=== PATIENT | female | born 1940 | race Caucasian/White ===

== ENCOUNTER → 2016-12-29 | Outpatient (CLI) | payer MEDICARE, BC ==
--- NOTE | 2016-12-30 12:33 | NM ---
EXAMINATION TYPE: NM thyroid image w uptake DATE OF EXAM: 12/30/2016 11:43 AM COMPARISON: NONE HISTORY: Abnormal labs TECHNIQUE: After the intravenous administration of 10.13 mCi Tc 99m Sodium Pertechnetate, thyroid nydia ging is [id number] minutes post injection. Thyroid iodine uptake is calculated after the oral admini stration of 17 uCi I-131 capsule. FINDINGS: There is suggestion of a cold defect involving the inferior pole the right lobe of the thyr oid.. The 4 hour iodine uptake is calculated at 20% (normal range 8-14%). The 24-hour iodine uptake is calculated at 41.4% (normal range 15-35%). IMPRESSION: 1. Correlate for hyperthyroidism 2. Correlate with ultrasound to assess for cold nodule lower pole right lobe thyroid
== END | disposition home or self-care (01) ==
LOC: RADNMMAIN 10:49
PROVIDERS: ATTEND Family Medicine
DX: E05.90 Thyrotoxicosis, unspecified without thyrotoxic crisis or storm (principal)
CPT/HCPCS: 78014; A9528; A9512

== ENCOUNTER → 2016-12-31 | Outpatient (CLI) | payer MEDICARE, BC ==
--- NOTE | 2016-12-31 14:43 | MR ---
EXAMINATION TYPE: MR lumbar spine wo con DATE OF EXAM: 12/31/2016 2:25 PM COMPARISON: NONE HISTORY: low back pain, fell TECHNIQUE: Multiplanar, multisequence images of the lumbar spine were acquired. Moderate scoliotic curvature is noted convex to the right. T12-L1: Severe nonacute compression fracture involving T12 with loss of height estimated at greater t xie 90%. There is exaggerated kyphosis at this level. 2 mm retrolisthesis without cord compression. D isc space demonstrates mild degenerative change. L1-L2: Acute moderate compression fracture involving L2 with loss of height estimated at 50%. No sign ificant bony retropulsion identified. Posterior elements are intact. Moderate disc desiccation withou t disc bulge herniation or central stenosis. L2-L3: Moderate disc desiccation identified. Mild posterior disc bulge without herniation or protrusi on. No evidence for central stenosis. Facet joint arthropathy with left foraminal encroachment. L3-L4: Mild/moderate disc desiccation. Mild circumferential disc bulge. No evidence for herniation pr otrusion or central stenosis. Mild facet joint arthropathy. No evidence for foraminal encroachment. L4-L5: Mild/moderate disc desiccation. Mild circumferential disc bulge. No evidence for herniation pr otrusion or central stenosis. Mild facet joint arthropathy. No evidence for foraminal encroachment. L5-S1: Mild/moderate disc desiccation. Mild circumferential disc bulge. No evidence for herniation pr otrusion or central stenosis. Mild facet joint arthropathy. No evidence for foraminal encroachment. No paraspinal masses are identified. Conus medullaris has a normal appearance. IMPRESSION: 1. Moderate acute compression fracture of L2 as discussed above. 2. Severe nonacute compression fracture of T12. 3. Multilevel degenerative disc disease with mild disc bulging as discussed.
== END | disposition home or self-care (01) ==
LOC: RADMRIMAIN 13:41
PROVIDERS: ATTEND Family Medicine
DX: M51.27 Other intervertebral disc displacement, lumbosacral region (principal); M51.36 Other intervertebral disc degeneration, lumbar region; S32.029A Unspecified fracture of second lumbar vertebra, initial encounter for closed fracture; G89.29 Other chronic pain
CPT/HCPCS: 72148

== ENCOUNTER 2017-02-03 19:53 | Emergency (ER) | payer MEDICARE, BC ==
[2017-02-03 20:08] VITALS: BP 182/86; PULSE 105; RESP 16; TEMP 97.8
--- NOTE | 2017-02-03 20:38 | ED ---
General Adult HPI - General Chief complaint: Back Pain/Injury Stated complaint: BACK PAIN Time Seen by Provider: 02/03/17 20:26 Source: EMS, RN notes reviewed Mode of arrival: EMS Limitations: physical limitation - History of Present Illness Initial comments: Patient 76-year-old female who presents emergency room today by EMS with chief complaint of increased lower back pain. Patient does admit to a lumbar fracture. Has been seen by orthopedics and does have a follow-up appointment tomorrow. Patient states doing dishes today. Denies any injury or trauma or fall recently to her back. States this happened approximately 3-4 weeks ago. Denies any bowel or bladder incontinence retention. Denies any saddle anesthesia. Patient admits that she was given Tylenol 3. She states that codeine makes her feel nauseated. She does not like taking this medication. She took one this morning. She took regular Tylenol in the afternoon. He was having increased pain this afternoon they called EMS. EMS gave her fentanyl. Patient states feeling much better at this time. Denies any complaints currently. Patient denies any recent fever, chills, shortness of breath, chest pain, abdominal pain, nausea or vomiting, numbness or tingling, dysuria or hematuria, constipation or diarrhea, headaches or visual changes, or any other complaints. - Related Data Home Medications Medication Instructions Recorded Confirmed Acetaminophen Tab [Tylenol Tab] 325 mg PO Q6H PRN 02/03/17 02/03/17 Acetaminophen-Codeine 300-30mg 1 tab PO Q4H PRN 02/03/17 02/03/17 [Tylenol #3] Cholecalciferol (Vitamin D3) 10,000 unit PO DAILY 02/03/17 02/03/17 [Vitamin D3] Lutein 20 mg PO DAILY 02/03/17 02/03/17 Naproxen Sodium [Aleve] 220 mg PO BID PRN 02/03/17 02/03/17 Simvastatin [Zocor] 40 mg PO HS 02/03/17 02/03/17 Previous Rx's Medication Instructions Recorded Hydrocodone/Acetaminophen [[place] 1 each PO Q6HR PRN #20 tab 02/03/17 5-325] Allergies Allergy/AdvReac Type Severity Reaction Status Date / Time amoxicillin [From Augmentin] Allergy Unknown Verified 02/03/17 20:21 cefaclor [From Ceclor] Allergy Unknown Verified 02/03/17 20:21 clarithromycin [From Biaxin] Allergy Unknown Verified 02/03/17 20:21 clavulanic acid Allergy Unknown Verified 02/03/17 20:21 [From Augmentin] codeine AdvReac Nausea & Verified 02/03/17 20:21 Vomiting & Diarrhea Review of Systems ROS Statement: Those systems with pertinent positive or pertinent negative responses have been documented in the HPI. ROS Other: All systems not noted in ROS Statement are negative. Past Medical History Past Medical History: Cancer, COPD History of Any Multi-Drug Resistant Organisms: None Reported Past Surgical History: Breast Surgery, Tonsillectomy, Tubal Ligation Additional Past Surgical History / Comment(s): LEFT MASTECOMY BREAST CA. LEFT FOOT FX .LEFT RIBS FX. LEFT TOES FX Past Psychological History: No Psychological Hx Reported Smoking Status: Current every day smoker Past Alcohol Use History: None Reported Past Drug Use History: None Reported General Exam - General Exam Comments Initial Comments: General: The patient is awake and alert, in no distress, and does not appear acutely ill. Eye: Pupils are equal, round and reactive to light, extra-ocular movements are intact. No nystagmus. There is normal conjunctiva bilaterally. No signs of icterus. Ears, nose, mouth and throat: There are moist mucous membranes and no oral lesions. Neck: The neck is supple, there is no tenderness or JVD. Cardiovascular: There is a regular rate and rhythm. No murmur, rub or gallop is appreciated. Respiratory: Lungs are clear to auscultation, respirations are non-labored, breath sounds are equal. No wheezes, stridor, rales, or rhonchi. Gastrointestinal: Soft, non-distended, non-tender abdomen without masses or organomegaly noted. There is no rebound or guarding present. No CVA tenderness. Bowel sounds are unremarkable. Musculoskeletal: Normal ROM, no tenderness. Strength 5/5. Sensation intact. Pulses equal bilaterally 2+. Neurological: A&O x 3. CN II-XII intact, There are no obvious motor or sensory deficits. Coordination appears grossly intact. Speech is normal. Skin: Skin is warm and dry and no rashes or lesions are noted. Psychiatric: Cooperative, appropriate mood & affect, normal judgment. Limitations: physical limitation Course Vital Signs 02/03/17 20:01 Temperature 97.8 F Pulse Rate 105 H Respiratory 16 Rate Blood Pressure 182/86 O2 Sat by Pulse 94 L Oximetry Medical Decision Making - Medical Decision Making Patient admits this is same back pain that she's been experiencing over the last 3 weeks. Denies any new symptoms. States feeling much better after fentanyl given by EMS. Patient is not like her Tylenol with codeine. Only took it in the morning and just took regular Tylenol only afternoon. Patient given a prescription for [place]. 1 tab here in The emergency room to go home with. Advised to follow with her doctor's appointment tomorrow morning. Advised return if any symptoms increase or worsen. Patient family members at bedside state understanding and are in agreement. Disposition Clinical Impression: Lumbar vertebral fracture Disposition: HOME SELF-CARE Condition: Good Instructions: Vertebral Compression Fracture (ED) Additional Instructions: Please use medication as discussed. Please follow-up with orthopedic doctor tomorrow with scheduled appointment. Please return to emergency room if the symptoms increase or worsen or for any other concerns. Prescriptions: Hydrocodone/Acetaminophen [[place] 5-325] 1 each PO Q6HR PRN #20 tab PRN Reason: Pain Time of Disposition: 20:38
[2017-02-03] MEDS ORDERED: HYDROcodone/APAP 5-325MG 1 EACH TAB PO STA (20:56)
== END 2017-02-03 21:05 | disposition home or self-care (01) ==
LOC: EC 19:53
DX: S32.009D Unspecified fracture of unspecified lumbar vertebra, subsequent encounter for fracture with routine healing (principal); F17.200 Nicotine dependence, unspecified, uncomplicated; Z85.3 Personal history of malignant neoplasm of breast; Z79.899 Other long term (current) drug therapy; Z88.5 Allergy status to narcotic agent; Z88.0 Allergy status to penicillin; Z88.1 Allergy status to other antibiotic agents; W00.0XXD Fall on same level due to ice and snow, subsequent encounter
CPT/HCPCS: 99283

== ENCOUNTER 2017-11-14 08:52 | Day surgery (SDC) | payer MEDICARE, BC ==
[2017-11-14 09:17] VITALS: TEMP 98
[2017-11-14] MEDS ORDERED: ALPRAZolam 0.25 MG TAB PO STA (09:21)
[2017-11-14] MEDS ORDERED: HYDROmorphone 1 MG/ML 1 ML SYRINGE IVP PRN (09:29)
[2017-11-14 09:39] LABS: Mean Platelet Volume 8.1
[2017-11-14 09:40] LABS: Prothrombin Time 10.2 sec (9.0-12.0)
--- NOTE | 2017-11-14 10:56 | CT ---
EXAMINATION TYPE: CT FNA and core biopsy lung RT DATE OF EXAM: 11/14/2017 COMPARISON: 11/01/2017 HISTORY: Right upper lobe lung mass CT DLP: 897 mGycm The procedure is discussed with the patient, the risks, complications, benefits and alternatives, wer e discussed and any questions were answered. Informed consent was obtained. The patient is placed p birgit on the CT table, prepped and draped in the usual sterile fashion. Utilizing a 22-gauge Chiba needle access into the right lobe mass was achieved with 2 passes performe d. Additionally 2 18-gauge core samples were obtained. Pathology pending. All elements of maximal b arrier and sterile technique were utilized. The patient remained stable throughout the procedure wit h no immediate postprocedural complication. IMPRESSION: 1. Successful CT guided fine needle aspiration and core biopsy of a right upper lobe lung mass.
--- NOTE | 2017-11-14 11:02 | XR ---
EXAMINATION TYPE: XR chest 1V portable DATE OF EXAM: 11/14/2017 COMPARISON: 11/01/2017 HISTORY: Right lung mass TECHNIQUE: Single frontal view of the chest is obtained. FINDINGS: Destructive right lung mass with destruction of multiple ribs noted. No sizable pneumothor ax post biopsy. Left lung clear. Curvature the spine and atherosclerotic change aorta. Calcifications the soft tissue the neck likely related carotid arteries. IMPRESSION: 1. Destructive right upper lobe lung mass. 2. No evidence of pneumothorax.
[2017-11-14 11:15] VITALS: RESP 16
[2017-11-14 13:20] VITALS: BP 168/72; PULSE 82
== END 2017-11-14 13:21 | disposition home or self-care (01) ==
LOC: RADPROMAIN 08:52
PROVIDERS: ATTEND Internal Medicine Hematology & Oncology
DX: C34.11 Malignant neoplasm of upper lobe, right bronchus or lung (principal)
CPT/HCPCS: 88305; 88173; 85049; 85610; 88342; 88341; 71010; 96374; 32405; 77012; J1170

== ENCOUNTER → 2017-11-25 | Outpatient (CLI) | payer MEDICARE, BC ==
--- NOTE | 2017-11-25 20:38 | MR ---
EXAMINATION TYPE: MR brain wo/w con DATE OF EXAM: 11/25/2017 COMPARISON: NONE HISTORY: Dizziness, lung ca TECHNIQUE: Multiplanar, multisequence images of the brain and brainstem is performed without and with IV contras t, utilizing 4 mL intravenous Gadavist . FINDINGS: Diffusion weighted images demonstrate no evidence of a recent infarct or other diffusion ab normality. There is no extra-axial fluid collection. Scattered punctate foci of T2/IR hyperintensity are scattered throughout the subcortical and periventricular white matter. These signal abnormaliti es are nonenhancing. The ventricular system and cisternal spaces are normal in size and appearance. The brain volume is age appropriate. Bone marrow signal is within normal limits. Incidental note is m heaven of a 5 mm pineal gland cyst. This is a benign finding. Major intracranial flow voids are maintain ed. Midline structures demonstrate normal morphology. The craniocervical junction appears within normal limits. Post contrast images demonstrate no abnormal enhancement. The dural venous sinuses appear pa tent. The visualized sinuses are clear other than scant mucosal thickening within the ethmoid sinuses . Mild leftward nasal septal deviation is incidentally noted. The globes are intact. IMPRESSION: 1. No evidence of abnormal intracranial enhancement or intracranial mass. No evidence of intracranial metastasis. Bone marrow signal is within normal limits. No findings to suggest osseous metastasis. 2. Mild burden nonspecific white matter change (nonenhancing), likely on the basis of microangiopathy .
== END | disposition home or self-care (01) ==
LOC: RADMRIMAIN 18:45
PROVIDERS: ATTEND Internal Medicine Hematology & Oncology
DX: C34.80 Malignant neoplasm of overlapping sites of unspecified bronchus and lung (principal)
CPT/HCPCS: 70553; A9581

== ENCOUNTER → 2017-11-26 | Outpatient (CLI) | payer MEDICARE, BC ==
--- NOTE | 2017-11-26 16:17 | PE ---
Nuclear medicine PET/CT HISTORY: Lung cancer, initial Patient received 13.6 mCi F-18 FDG intravenously in delayed scanning performed from the skull base to the mid thighs. Localization and attenuation correction CT scan was performed. Exam is correlated to prior chest CT dated 11/01/2017 Neck and chest: The chest wall mass which extends from the lung into the soft tissues of the right la teral chest is again noted and measures approximately 8.6 in greatest AP dimension by 5.1 in transver se dimension by approximately 7.4 cm in cephalad to caudal dimension in the right upper lobe. Multipl e ribs show destruction, involvement by tumor. There is no evident axillary, mediastinal, or hilar ad enopathy. There is no pleural or pericardial effusion. Emphysematous changes are present within the l ungs. There are coronary artery calcifications. Asymmetric soft tissue noted within the breasts. Abdomen pelvis: No evident adrenal mass or liver mass. No retroperitoneal adenopathy. No evident asci sienna. Suspect some nonobstructive nephrolithiasis on the left kidney. osseous structures: There is some sclerosis involving the ninth rib posteriorly, some associated hype rmetabolic uptake is suspected. Paraspinal musculature on the right shows hypermetabolic uptake thoug ht likely to be physiologic. Compression fracture noted at multiple lower thoracic, lumbar vertebral bodies. There is scoliosis. IMPRESSION: Chest wall mass as described compatible with bronchogenic carcinoma, possible metastatic disease. Asymmetric soft tissue within the breast is indeterminate.
== END | disposition home or self-care (01) ==
LOC: RADPETMAIN 10:27
PROVIDERS: ATTEND Internal Medicine Hematology & Oncology
DX: C34.81 Malignant neoplasm of overlapping sites of right bronchus and lung (principal)
CPT/HCPCS: 78815; A9552

== ENCOUNTER 2018-01-27 12:23 | Emergency (ER) | payer MEDICARE, BC ==
[2018-01-27] MEDS ORDERED: IPRATROPIUM-ALBUTEROL 3 ML NEB INHALATION STA (12:56)
[2018-01-27] MEDS ORDERED: SODIUM CHLORIDE 0.9% 1,000 ML IV STA ×2 (12:56→15:30)
--- NOTE | 2018-01-27 13:28 | ED ---
General Adult HPI - General Chief complaint: Shortness of Breath Stated complaint: Cold Symptoms-CA Patient Time Seen by Provider: 01/27/18 12:56 Source: patient, family, RN notes reviewed, old records reviewed Mode of arrival: wheelchair Limitations: no limitations - History of Present Illness Initial comments: This is a 77-year-old female to the ER for evaluation tonight. Patient is ER for evaluation regarding shortness of breath. No fevers no cough or congestion no travel history. Patient going through current radiation for CVA. denies chest pain no other complaints. Patient had shortness of breath sent over from her doctor's office for evaluation - Related Data Home Medications Medication Instructions Recorded Confirmed Lutein 20 mg PO DAILY 02/03/17 01/27/18 Simvastatin [Zocor] 40 mg PO HS 02/03/17 01/27/18 Albuterol Inhaler [Ventolin Hfa 2 puff INHALATION RT-Q6H PRN 11/01/17 01/27/18 Inhaler] Calcium Carbonate [Calcium] 600 mg PO DAILY 11/01/17 01/27/18 Cholecalciferol [Vitamin D3] 1,000 unit PO DAILY 11/01/17 01/27/18 Loratadine [Claritin] 10 mg PO DAILY 11/01/17 01/27/18 Hydrocodone/Acetaminophen [[place] 1 tab PO Q6HR PRN 01/27/18 01/27/18 5-325] Allergies Allergy/AdvReac Type Severity Reaction Status Date / Time amoxicillin [From Augmentin] Allergy Unknown Verified 01/27/18 13:33 cefaclor [From Ceclor] Allergy Unknown Verified 01/27/18 13:33 clarithromycin [From Biaxin] Allergy Unknown Verified 01/27/18 13:33 clavulanic acid Allergy Unknown Verified 01/27/18 13:33 [From Augmentin] codeine AdvReac Nausea & Verified 01/27/18 13:33 Vomiting & Diarrhea Review of Systems ROS Statement: Those systems with pertinent positive or pertinent negative responses have been documented in the HPI. ROS Other: All systems not noted in ROS Statement are negative. Past Medical History Past Medical History: Cancer, COPD, Hyperlipidemia, Osteoarthritis (OA), Respiratory Disorder Additional Past Medical History / Comment(s): recent fall - fracture ribs rt, emphysema, Lung cancer History of Any Multi-Drug Resistant Organisms: None Reported Past Surgical History: Breast Surgery, Tonsillectomy, Tubal Ligation Additional Past Surgical History / Comment(s): LEFT MASTECOMY benign . LEFT FOOT FX .LEFT RIBS FX. LEFT TOES FX Past Anesthesia/Blood Transfusion Reactions: No Reported Reaction Past Psychological History: No Psychological Hx Reported Smoking Status: Current every day smoker Past Alcohol Use History: None Reported Past Drug Use History: None Reported - Past Family History Mother Family Medical History: Cancer Additional Family Medical History / Comment(s): breast General Exam Limitations: no limitations General appearance: alert, in no apparent distress, anxious, cachectic Head exam: Present: atraumatic, normocephalic, normal inspection Eye exam: Present: normal appearance, PERRL, EOMI. Absent: scleral icterus, conjunctival injection, periorbital swelling ENT exam: Present: normal exam, mucous membranes moist Neck exam: Present: normal inspection. Absent: tenderness, meningismus, lymphadenopathy Respiratory exam: Present: normal lung sounds bilaterally. Absent: respiratory distress, wheezes, rales, rhonchi, stridor Cardiovascular Exam: Present: normal rhythm, tachycardia, normal heart sounds. Absent: systolic murmur, diastolic murmur, rubs, gallop, clicks GI/Abdominal exam: Present: soft, normal bowel sounds. Absent: distended, tenderness, guarding, rebound, rigid Extremities exam: Present: normal inspection, full ROM, normal capillary refill. Absent: tenderness, pedal edema, joint swelling, calf tenderness Back exam: Present: normal inspection Neurological exam: Present: alert, oriented X3, CN II-XII intact Psychiatric exam: Present: normal affect, normal mood Skin exam: Present: warm, dry, intact, normal color. Absent: rash Course Vital Signs 01/27/18 01/27/18 01/27/18 12:48 13:15 13:30 Temperature 97.9 F Pulse Rate 114 H 113 H 112 H Respiratory 18 Rate Blood Pressure 118/59 O2 Sat by Pulse 98 Oximetry 01/27/18 01/27/18 01/27/18 14:00 15:34 16:18 Temperature 97.1 F L Pulse Rate 114 H 110 H 104 H Respiratory 19 16 Rate Blood Pressure 91/52 115/57 118/60 O2 Sat by Pulse 96 97 96 Oximetry - Reevaluation(s) Reevaluation #1: 01/27/18 16:33 Patient is improvement breathing treatment Reevaluation #2: 01/27/18 16:34 Patient denies any chest pain EKG Findings - EKG Comments: EKG Findings:: EKG shows sinus tachycardia rate 19, [place] 122, QRS 70, QTc 447 Medical Decision Making - Medical Decision Making 77 female the ER for evaluation of cough and congestion tachycardia dehydration , patient given hydration and breathing treatment here in the ER feels better. Labwork is normal CTA chest is negative - Lab Data Result diagrams: 01/27/18 13:25 01/27/18 13:25 Lab Results 01/27/18 01/27/18 01/27/18 Range/Units 13:25 13:25 13:25 WBC 1.6 L* (3.8-10.6) k/uL RBC 2.84 L (3.80-5.40) m/uL Hgb 8.3 L (11.4-16.0) gm/dL Hct 26.4 L (34.0-46.0) % MCV 92.8 (80.0-100.0) fL MCH 29.3 (25.0-35.0) pg MCHC 31.5 (31.0-37.0) g/dL RDW 16.7 H (11.5-15.5) % Plt Count 120 L (150-450) k/uL Neutrophils % 78 % Lymphocytes % 16 % Monocytes % 3 % Eosinophils % 1 % Basophils % 1 % Neutrophils # 1.3 (1.3-7.7) k/uL Lymphocytes # 0.3 L (1.0-4.8) k/uL Monocytes # 0.1 (0-1.0) k/uL Eosinophils # 0.0 (0-0.7) k/uL Basophils # 0.0 (0-0.2) k/uL Anisocytosis Slight PT (9.0-12.0) sec INR (<1.2) APTT (22.0-30.0) sec D-Dimer (<0.60) mg/L FEU Sodium 139 (137-145) mmol/L Potassium 4.5 (3.5-5.1) mmol/L Chloride 105 (98-107) mmol/L Carbon Dioxide 26 (22-30) mmol/L Anion Gap 8 mmol/L BUN 14 (7-17) mg/dL Creatinine 0.43 L (0.52-1.04) mg/dL Est GFR (MDRD) Af Amer >60 (>60 ml/min/1.73 sqM) Est GFR (MDRD) Non-Af >60 (>60 ml/min/1.73 sqM) Glucose 107 H (74-99) mg/dL Calcium 9.2 (8.4-10.2) mg/dL Magnesium 1.8 (1.6-2.3) mg/dL Total Bilirubin 0.5 (0.2-1.3) mg/dL AST 25 (14-36) U/L ALT 30 (9-52) U/L Alkaline Phosphatase 75 (38-126) U/L Total Creatine Kinase 28 L (30-135) U/L CK-MB (CK-2) <0.2 (0.0-2.4) ng/mL CK-MB (CK-2) Rel Index Troponin I 0.019 (0.000-0.034) ng/mL NT-Pro-B Natriuret Pep pg/mL Total Protein 6.3 (6.3-8.2) g/dL Albumin 3.5 (3.5-5.0) g/dL Influenza Type A RNA (Not Detectd) Influenza Type B (PCR) (Not Detectd) 01/27/18 01/27/18 01/27/18 Range/Units 13:25 13:25 13:25 WBC (3.8-10.6) k/uL RBC (3.80-5.40) m/uL Hgb (11.4-16.0) gm/dL Hct (34.0-46.0) % MCV (80.0-100.0) fL MCH (25.0-35.0) pg MCHC (31.0-37.0) g/dL RDW (11.5-15.5) % Plt Count (150-450) k/uL Neutrophils % % Lymphocytes % % Monocytes % % Eosinophils % % Basophils % % Neutrophils # (1.3-7.7) k/uL Lymphocytes # (1.0-4.8) k/uL Monocytes # (0-1.0) k/uL Eosinophils # (0-0.7) k/uL Basophils # (0-0.2) k/uL Anisocytosis PT 9.5 (9.0-12.0) sec INR 1.0 (<1.2) APTT 22.5 (22.0-30.0) sec D-Dimer 3.27 H (<0.60) mg/L FEU Sodium (137-145) mmol/L Potassium (3.5-5.1) mmol/L Chloride (98-107) mmol/L Carbon Dioxide (22-30) mmol/L Anion Gap mmol/L BUN (7-17) mg/dL Creatinine (0.52-1.04) mg/dL Est GFR (MDRD) Af Amer (>60 ml/min/1.73 sqM) Est GFR (MDRD) Non-Af (>60 ml/min/1.73 sqM) Glucose (74-99) mg/dL Calcium (8.4-10.2) mg/dL Magnesium (1.6-2.3) mg/dL Total Bilirubin (0.2-1.3) mg/dL AST (14-36) U/L ALT (9-52) U/L Alkaline Phosphatase (38-126) U/L Total Creatine Kinase (30-135) U/L CK-MB (CK-2) (0.0-2.4) ng/mL CK-MB (CK-2) Rel Index Troponin I (0.000-0.034) ng/mL NT-Pro-B Natriuret Pep 396 pg/mL Total Protein (6.3-8.2) g/dL Albumin (3.5-5.0) g/dL Influenza Type A RNA (Not Detectd) Influenza Type B (PCR) (Not Detectd) 01/27/18 Range/Units 15:30 WBC (3.8-10.6) k/uL RBC (3.80-5.40) m/uL Hgb (11.4-16.0) gm/dL Hct (34.0-46.0) % MCV (80.0-100.0) fL MCH (25.0-35.0) pg MCHC (31.0-37.0) g/dL RDW (11.5-15.5) % Plt Count (150-450) k/uL Neutrophils % % Lymphocytes % % Monocytes % % Eosinophils % % Basophils % % Neutrophils # (1.3-7.7) k/uL Lymphocytes # (1.0-4.8) k/uL Monocytes # (0-1.0) k/uL Eosinophils # (0-0.7) k/uL Basophils # (0-0.2) k/uL Anisocytosis PT (9.0-12.0) sec INR (<1.2) APTT (22.0-30.0) sec D-Dimer (<0.60) mg/L FEU Sodium (137-145) mmol/L Potassium (3.5-5.1) mmol/L Chloride (98-107) mmol/L Carbon Dioxide (22-30) mmol/L Anion Gap mmol/L BUN (7-17) mg/dL Creatinine (0.52-1.04) mg/dL Est GFR (MDRD) Af Amer (>60 ml/min/1.73 sqM) Est GFR (MDRD) Non-Af (>60 ml/min/1.73 sqM) Glucose (74-99) mg/dL Calcium (8.4-10.2) mg/dL Magnesium (1.6-2.3) mg/dL Total Bilirubin (0.2-1.3) mg/dL AST (14-36) U/L ALT (9-52) U/L Alkaline Phosphatase (38-126) U/L Total Creatine Kinase (30-135) U/L CK-MB (CK-2) (0.0-2.4) ng/mL CK-MB (CK-2) Rel Index Troponin I (0.000-0.034) ng/mL NT-Pro-B Natriuret Pep pg/mL Total Protein (6.3-8.2) g/dL Albumin (3.5-5.0) g/dL Influenza Type A RNA Not Detected (Not Detectd) Influenza Type B (PCR) Not Detected (Not Detectd) - Radiology Data Radiology results: report reviewed (CTA chest is negative for PE), image reviewed Disposition Clinical Impression: URI (upper respiratory infection) Disposition: HOME SELF-CARE Condition: Good Instructions: Upper Respiratory Infection (ED), Viral Syndrome (ED) Referrals: Sara Carrasco MD [Primary Care Provider] - 1-2 days
[2018-01-27 13:54] LABS: Anisocytosis Slight; Basophils % (A) 1 %; Eosinophils % (A) 1 %; HCT 26.4 % (34.0-46.0); HGB 8.3 gm/dL (11.4-16.0); Lymphocytes # (A) 0.3 k/uL (1.0-4.8); Lymphocytes % (A) 16 %; MCH 29.3 pg (25.0-35.0); MCHC 31.5 g/dL (31.0-37.0); MCV 92.8 fL (80.0-100.0); Mean Platelet Volume 8.4; Monocytes # (A) 0.1 k/uL (0-1.0); Monocytes % (A) 3 %; Neutrophils # (A) 1.3 k/uL (1.3-7.7); Neutrophils % (A) 78 %; Platelet Count 120 k/uL (150-450); RBC 2.84 m/uL (3.80-5.40); RDW 16.7 % (11.5-15.5)
[2018-01-27 13:56] LABS: WBC 1.6 k/uL (3.8-10.6)
[2018-01-27 14:00] LABS: ALT 30 U/L (9-52); AST 25 U/L (14-36); Albumin 3.5 g/dL (3.5-5.0); Alkaline Phosphatase 75 U/L (38-126); Anion Gap 8 mmol/L; Blood Urea Nitrogen 14 mg/dL (7-17); Calcium 9.2 mg/dL (8.4-10.2); Carbon Dioxide 26 mmol/L (22-30); Chloride 105 mmol/L (98-107); Glucose 107 mg/dL (74-99); Potassium 4.5 mmol/L (3.5-5.1); Sodium 139 mmol/L (137-145); Total Bilirubin 0.5 mg/dL (0.2-1.3); Total Protein 6.3 g/dL (6.3-8.2)
[2018-01-27 14:12] LABS: Creatine Kinase 28 U/L (30-135)
[2018-01-27 14:15] LABS: Partial Thromboplastin Time 22.5 sec (22.0-30.0); Prothrombin Time 9.5 sec (9.0-12.0)
[2018-01-27] MEDS ORDERED: RX INFO: IV CONTRAST WAS GIVEN 1 EACH MISC MISCELLANE PRN (14:17)
[2018-01-27 14:23] LABS: Creatine Kinase MB <0.2 ng/mL (0.0-2.4); Troponin I 0.019 ng/mL (0.000-0.034)
--- NOTE | 2018-01-27 15:05 | CT ---
EXAMINATION TYPE: CT angio chest DATE OF EXAM: 01/27/2018 COMPARISON: CT chest abdomen and pelvis November 01, 2017. PET/CT November 26, 2017. HISTORY: Cough and shortness of breath. CT DLP: 104.5 mGycm. Automated Exposure Control for Dose Reduction was Utilized. CONTRAST: CTA scan of the thorax is performed with IV Contrast, patient injected with 100 mL of Omnipaque 350, pulmonary embolism protocol. MIP Images are created on CT scanner and reviewed. FINDINGS: LUNGS: Moderate underlying emphysematous change is redemonstrated. Peripheral based right upper lobe lesion shows new aeration with lobular low dense probable fluid component most prominent inferiorly and new partial right rib resection consistent with interval partial pneumonectomy changes at this le eloise. There is moderate biapical pleural/parenchymal scarring. No additional areas of new consolidatio n or groundglass opacity are seen. No pleural effusion or pneumothorax is identified bilaterally. Tra cheobronchial tree is patent. MEDIASTINUM: There is satisfactory enhancement of the pulmonary artery and its branches, there is no CT evidence for pulmonary embolism. There are no greater than 1 cm hilar or mediastinal lymph nodes. No cardiomegaly or pericardial effusion is seen. Coronary artery calcification is redemonstrated w hich is noted marker for coronary artery disease. There is moderate atherosclerotic change of aorta e xtending into branch vessels. There is ectatic course to descending aorta. OTHER: Osseous structures are demineralized. There is advanced compression type fracture deformity T1 2 level redemonstrated. Underlying scoliosis is again seen. IMPRESSION: No CT evidence for pulmonary embolism. 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 Background moderate emphysematous change without suspicious new acute pulmon geovany process.
[2018-01-27 15:37] VITALS: TEMP 97.1
[2018-01-27 16:27] VITALS: BP 118/60; PULSE 104; RESP 16
== END 2018-01-27 16:43 | disposition home or self-care (01) ==
LOC: EC 12:23
DX: J06.9 Acute upper respiratory infection, unspecified (principal); E86.0 Dehydration; R00.0 Tachycardia, unspecified; C34.90 Malignant neoplasm of unspecified part of unspecified bronchus or lung; R64 Cachexia; E78.5 Hyperlipidemia, unspecified; J43.9 Emphysema, unspecified; F17.200 Nicotine dependence, unspecified, uncomplicated; Z79.899 Other long term (current) drug therapy; Z88.0 Allergy status to penicillin; Z88.1 Allergy status to other antibiotic agents; Z88.5 Allergy status to narcotic agent; Z92.3 Personal history of irradiation; Z68.1 Body mass index [BMI] 19.9 or less, adult
CPT/HCPCS: 36415; 94640; 93005; 85379; 83880; 80053; 82550; 82553; 83735; 84484; 85025; 85610; 85730; 87502; 71275; 99285; 96360; 96361 ×2; Q9967

== ENCOUNTER → 2018-03-15 | Outpatient (CLI) | payer MEDICARE, BC ==
[2018-03-15 11:38] LABS: Blood Urea Nitrogen 14 mg/dL (7-17)
--- NOTE | 2018-03-15 13:52 | CT ---
EXAMINATION TYPE: CT ChestAbdPelvis w con DATE OF EXAM: 03/15/2018 COMPARISON: 01/27/2018 and 11/26/2017 HISTORY: 77 year-old female history of lung cancer, observe for metastases. Follow-up after chemoradi ation therapy. TECHNIQUE: Contiguous axial scanning of the chest, abdomen, and pelvis performed with IV Contrast, pa tient injected with 80 mL of Isovue 300. Delayed images through the kidneys were obtained. Coronal/sa gittal reconstructions performed. CT DLP: 829 mGycm Automated exposure control for dose reduction was used. FINDINGS: Chest: Heart is normal size without pericardial effusion. Coronary vessel calcifications are present in evan rkable for coronary artery disease. Aorta normal caliber with a mild atherosclerotic arch calcifications and conventional arch vessel bra nching anatomy. No thoracic lymphadenopathy by CT size criteria. Redemonstrated moderate centrilobular emphysema with biapical pleural-parenchymal scarring. Redemonstrated resection cavity performed right upper lobe with partial rib resections as well. The r esection cavity measures up to 5.3 cm AP by 3.5 cm wide currently versus 6.0 x 3.8 cm, previously. Th ere is similar mild irregular thickening along the resection margins especially with some heterogeneo us density thickening, probable fluid along the inferior resection cavity margins. Subtle area of 7 m m nodularity along the anterior medial resection margin appears new and should be reassessed at follo w-up. Refer to axial images 21 and 22. No consolidation or pleural effusion. ABDOMEN: Tiny subcentimeter hypodensity peripheral right hepatic dome stable and too small for accurate CT dionne racterization, probable tiny cyst. Stable mild prominence to the bile duct. Small diverticulum of the second portion of the duodenum. The portal vein appears patent. Gallbladder, right adrenal gland, left kidney, spleen, and pancreas show no gross abnormality. Some p rominence to the main pancreatic duct at the level of the pancreatic body at 2.8 mm is unchanged. Erica pect a pancreatic divisum variant. Small nonobstructive 3 mm calculus upper pole right kidney. Subcentimeter cortical hypodensity latera l lower pole right kidney is unchanged from 11/26/2017. Mild diffuse thickening of the left adrenal gland unchanged. No dilated small bowel, free fluid, or free air. No mesenteric or retroperitoneal lymphadenopathy. Or al contrast has progressed to the rectum. No pericolonic inflammatory change seen. Pelvis: Bladder is urine distended. There is some pelvic floor relaxation. Uterus and small ovaries are visua lized. No abnormal fluid collection in the pelvis or pelvic lymphadenopathy. Bones: Diffuse osteopenia. Mild degenerative changes at the hips. Degenerative dextroconvex curvature of the lumbar spine. Vertebral compression deformity of T12 is unchanged from 01/27/2018. Scattered endplate deformities in the lumbar spine are also unchanged. IMPRESSION: 1. COPD WITH MODERATE EMPHYSEMA AND REDEMONSTRATED RESECTION CAVITY PERIPHERAL RIGHT UPPER LOBE INCLU DING PARTIAL RIB RESECTIONS WELL. 2. OVERALL RESECTION CAVITY IS SLIGHTLY SMALLER (5.3 X 3.5 CM VERSUS 6.0 X 3.8 CM, PREVIOUSLY). HOWEV ER, A 7 MM AREA OF NODULARITY ALONG THE ANTEROMEDIAL MARGIN OF THE RESECTION CAVITY APPEARS NEW AND S HOULD BE REASSESSED AT FOLLOW-UP. 3. OTHERWISE, NO EVIDENCE FOR METASTATIC DISEASE.
== END ==
LOC: RADCTMAIN 10:35
PROVIDERS: ATTEND Internal Medicine Hematology & Oncology
DX: C34.11 Malignant neoplasm of upper lobe, right bronchus or lung (principal); J43.9 Emphysema, unspecified; R91.1 Solitary pulmonary nodule; Z90.2 Acquired absence of lung [part of]
CPT/HCPCS: 82565; 84520; 71260; 74177; 36415; Q9967

== ENCOUNTER → 2018-07-13 | Outpatient (CLI) | payer MEDICARE, BC ==
[2018-07-13 15:19] LABS: Blood Urea Nitrogen 20 mg/dL (7-17)
--- NOTE | 2018-07-13 16:06 | CT ---
EXAMINATION TYPE: CT chest w con DATE OF EXAM: 07/13/2018 COMPARISON: 03/15/2018 HISTORY: Right upper lobe bronchus. CT DLP: 101.7 mGycm Automated exposure control for dose reduction was used. CONTRAST: CT scan of the chest is performed with IV Contrast, patient injected with 100ml mL of Isovue M300. FINDINGS: LUNGS: Significant interval progression of lobulated pleural-based mass right upper lobe currently me asuring 3.4 x 2.4 x 4.1 cm. There is evidence of chest wall invasion. Irregularity of adjacent ribs a gain noted. Subpleural loculated collection is also increased in size. No additional masses seen. Hyp erinflation compatible with COPD. MEDIASTINUM: There are no greater than 1 cm hilar or mediastinal lymph nodes. No pericardial effusi on is seen. Thoracic aorta is of normal caliber. The heart is not enlarged. UPPER ABDOMEN: No significant abnormality appreciated. OTHER: Continued compression fractures. IMPRESSION: 1. Previously noted resection cavity is now filled with fluid. There is progression of the irregular partially necrotic mass. There is evidence of chest wall invasion as well as rib irregularity.
== END | disposition home or self-care (01) ==
LOC: RADCTMAIN 14:36
PROVIDERS: ATTEND Radiology Radiation Oncology
DX: C34.11 Malignant neoplasm of upper lobe, right bronchus or lung (principal)
CPT/HCPCS: 82565; 84520; 71260; 36415; Q9967

== ENCOUNTER → 2018-09-02 | Outpatient (CLI) | payer MEDICARE, BC ==
--- NOTE | 2018-09-05 07:41 | PE ---
EXAMINATION TYPE: PET CT fusion skull to thigh DATE OF EXAM: 09/02/2018 COMPARISON: CT chest, abdomen, and pelvis dated 03/15/2018 and PET/CT dated 11/26/2017. HISTORY: Right lung carcinoma treated with chemotherapy last in January 2018. TECHNIQUE: Following the intravenous administration of 10.97 mCi of F-18 FDG, whole body images are performed from the skull base to the midthigh. Images are reviewed on the computer in the coronal, a xial, and sagittal planes. Reconstructed rotating images are created on independent workstation and reviewed on the computer. A localization and attenuation correction CT is performed in conjunction with the PET scan. SCAN: Subsequent treatment strategy FINDINGS: Mediastinal background: 1.7 Abdominal background: 2.2 SKULL BASE AND NECK: No suspicious hypermetabolic activity. CHEST, MEDIASTINUM, AND HILAR REGION: There is continued interval enlargement of the centrally necrot ic pleural-based right upper lobe soft tissue mass with extension into the right maxillary subcutaneo us tissues and osseous erosion of the adjacent ribs. This now measures up to 6.1 x 4.4 cm and previou sly measured 5.6 x 4.4 cm on the prior exam of 07/13/2018. This is hypermetabolic peripherally with a maximum SUV of 6.5. Of note there is inflammatory change surrounding the right pectoralis major and m inor musculature as well as muscular volume expansion and mild FDG avidity similar to mediastinal phil kground. (Maximum SUV of 1.7). There is extent of the pleural-based mass to abut the pectoralis minor musculature. The inferior aspect of this multilobulated mass measures 2.7 x 2.9 cm there is extent t o the right raisa, all hypermetabolic. ABDOMEN AND PELVIS: Along the gastric fundus in addition to circumferential mucosal thickening there is slight hypermetabolic uptake of maximum SUV of 2.5. OSSEOUS STRUCTURES: There is sclerosis of the lateral margin of rib 2 on the right and erosion of rib s 3, 4, 5 as well as pathologic nonunited fracture of the lateral margin of rib 5. Focal sclerosis of the eighth and 11th ribs are also seen right posterior laterally. OTHER CT: Paranasal sinuses and mastoid air cells are well aerated. Moderate degenerative change of t he cervical spine is seen. No evidence of supraclavicular adenopathy. Atherosclerosis of the vertebra l arteries and carotid arteries are incidentally seen. Thyroid gland is enlarged and heterogenous wit h multiple hypoattenuated nodules. There is asymmetry and density of the right breast tissue. A prominent 9 mm pretracheal lymph node is seen without hypermetabolic activity. Heart is not enlarge d. Moderate coronary artery calcifications are seen. Small hiatal hernia is present. There are moderate background emphysematous changes. Left pleural-parenchymal apical scarring is note d. Solitary granuloma is seen along the right hemidiaphragm. The unenhanced hepatic parenchyma is grossl y unremarkable. There is circumferential thickening of the stomach that may relate to incomplete dist ention. The unenhanced spleen, adrenal glands, and pancreas are grossly unremarkable. Too small to ac curately characterize left upper pole and right lower pole renal lesions are seen that are subcentime ter. Punctate nonobstructing bilateral renal calculi are present. Large and small bowel are nondilate d. The abdominal aorta is tortuous with severe atherosclerosis. Mild femoral acetabular arthropathy is seen. There is mild diffuse osseous demineralization and moder ate multilevel degenerative changes of the thoracic spine. Vertebral compression deformity of T12 is unchanged. IMPRESSION: 1. Progression of disease. Continued interval enlargement of the centrally necrotic right upper lobe multilobulated mass with pleural extent and extends into the right hilum as well as direct rib invasi on and subsequent chest wall edema. Other multifocal right rib sclerosis is again seen, mildly FDG av id and suspicious for metastasis with solitary right lateral pathologic nonunited fracture of right r ib 5, also unchanged. 2. Hypermetabolic activity along the thickened gastric fundus and proximal body. This could relate to gastritis, however endoscopy could be performed for further evaluation if there is clinical suspicio n. 3. No new evidence of mediastinal adenopathy, supraclavicular adenopathy, or visceral metastasis with in the abdomen or pelvis.
== END ==
LOC: RADPETMAIN 12:26
PROVIDERS: ATTEND Radiology Radiation Oncology
DX: C34.11 Malignant neoplasm of upper lobe, right bronchus or lung (principal); S22.31XA Fracture of one rib, right side, initial encounter for closed fracture; R93.3 Abnormal findings on diagnostic imaging of other parts of digestive tract
CPT/HCPCS: 78815; A9552

== ENCOUNTER → 2018-10-31 | Outpatient (CLI) | payer MEDICARE, BC ==
--- NOTE | 2018-10-31 20:05 | MR ---
EXAMINATION TYPE: MR brain wo/w con DATE OF EXAM: 10/31/2018 COMPARISON: 11/25/2017 HISTORY: Dizziness, lung ca TECHNIQUE: Multiplanar, multisequence images of the brain and brainstem is performed without and with IV contras t, utilizing 4 mL intravenous Gadavist . FINDINGS: There is cerebral cortical atrophy. There is no mass effect nor midline shift. There is no sign of intracranial hemorrhage. On the T2 and FLAIR images there are multiple foci of increased sign al at the alicea-white matter junction of both cerebral hemispheres that measure up to 10 mm. Total num bers approximately 20. There is no evidence of a cortical infarct. The contrast images show no pathologic enhancement. Brainstem is intact. There is no evidence of post erior fossa mass. Sella turcica appears normal. There is normal contrast opacification of the venous sinuses. IMPRESSION: Cerebral atrophy. White matter changes probably due to chronic small vessel ischemia. I t hink demyelinating diseases much less likely. No evidence of intracranial metastatic disease. No adve rse change compared to old exam.
== END | disposition home or self-care (01) ==
LOC: RADMRIMAIN 18:48
PROVIDERS: ATTEND Internal Medicine Hematology & Oncology
DX: G31.9 Degenerative disease of nervous system, unspecified (principal); R90.89 Other abnormal findings on diagnostic imaging of central nervous system; C34.11 Malignant neoplasm of upper lobe, right bronchus or lung
CPT/HCPCS: 70553; A9585

== ENCOUNTER 2018-11-18 09:23 | Inpatient (IN) | payer MEDICARE, BC ==
[2018-11-18] MEDS ORDERED: SODIUM CHLORIDE 0.9% 1,000 ML IV STA (09:43)
[2018-11-18] MEDS ORDERED: SODIUM CHLORIDE 0.9% 500 ML 500 ML IV STA (09:43)
[2018-11-18] MEDS ORDERED: methylPREDNISolone SOD SUCCI 125 MG/2 ML VIAL IV STA (09:43)
[2018-11-18] MEDS ORDERED: IPRATROPIUM-ALBUTEROL 3 ML NEB INHALATION STA (09:43)
--- NOTE | 2018-11-18 09:53 | ED ---
General Adult HPI - General Chief complaint: Shortness of Breath Stated complaint: JOSE J Time Seen by Provider: 11/18/18 09:32 Source: patient, RN notes reviewed, old records reviewed Mode of arrival: ambulatory Limitations: no limitations - History of Present Illness Initial comments: 77-year-old female with chief complaint of dyspnea. Patient admits to cough and dyspnea over the past several weeks. She states since significantly worsened over the past several days. She does report subjective fever and chills. She has history of both COPD and lung cancer, she is currently on Opdivo. Patient denies chest pain. Cough is productive of white sputum. She admits to current tobacco use although minimal. Denies lower extremity pain or swelling. - Related Data Home Medications Medication Instructions Recorded Confirmed Lutein 20 mg PO DAILY 02/03/17 11/18/18 Simvastatin [Zocor] 40 mg PO HS 02/03/17 11/18/18 Albuterol Inhaler [Ventolin Hfa 2 puff INHALATION RT-Q6H PRN 11/01/17 11/18/18 Inhaler] Calcium Carbonate [Calcium] 600 mg PO DAILY 11/01/17 11/18/18 Cholecalciferol [Vitamin D3] 1,000 unit PO DAILY 11/01/17 11/18/18 Loratadine [Claritin] 10 mg PO DAILY 11/01/17 11/18/18 Hydrocodone/Acetaminophen [Canvas 1 tab PO Q6HR PRN 01/27/18 11/18/18 5-325] Nivolumab [Opdivo] 100 mg IV Q14D 11/18/18 11/18/18 Allergies Allergy/AdvReac Type Severity Reaction Status Date / Time amoxicillin [From Augmentin] Allergy Unknown Verified 11/18/18 10:26 cefaclor [From Ceclor] Allergy Unknown Verified 11/18/18 10:26 clarithromycin [From Biaxin] Allergy Unknown Verified 11/18/18 10:26 clavulanic acid Allergy Unknown Verified 11/18/18 10:26 [From Augmentin] codeine AdvReac Nausea & Verified 11/18/18 10:26 Vomiting & Diarrhea Review of Systems ROS Statement: Those systems with pertinent positive or pertinent negative responses have been documented in the HPI. ROS Other: All systems not noted in ROS Statement are negative. Past Medical History Past Medical History: Cancer, COPD, Hyperlipidemia, Osteoarthritis (OA), Respiratory Disorder Additional Past Medical History / Comment(s): recent fall - fracture ribs rt, emphysema, Lung cancer History of Any Multi-Drug Resistant Organisms: None Reported Past Surgical History: Breast Surgery, Tonsillectomy, Tubal Ligation Additional Past Surgical History / Comment(s): LEFT MASTECOMY benign . LEFT FOOT FX .LEFT RIBS FX. LEFT TOES FX Past Anesthesia/Blood Transfusion Reactions: No Reported Reaction Past Psychological History: No Psychological Hx Reported Smoking Status: Current every day smoker Past Alcohol Use History: None Reported Past Drug Use History: None Reported - Past Family History Mother Family Medical History: Cancer Additional Family Medical History / Comment(s): breast General Exam Limitations: no limitations General appearance: alert, in no apparent distress Head exam: Present: atraumatic, normocephalic Eye exam: Present: normal appearance, PERRL ENT exam: Present: mucous membranes dry Neck exam: Present: normal inspection. Absent: tenderness, meningismus Respiratory exam: Present: respiratory distress (Mild tachypnea with good air entry), decreased breath sounds Cardiovascular Exam: Present: normal rhythm, tachycardia GI/Abdominal exam: Present: soft. Absent: distended, tenderness, guarding Extremities exam: Present: normal inspection, normal capillary refill. Absent: pedal edema, calf tenderness Neurological exam: Present: alert, oriented X3, CN II-XII intact. Absent: motor sensory deficit Psychiatric exam: Present: normal affect, normal mood Skin exam: Present: warm, dry, intact. Absent: cyanosis, diaphoretic Course Vital Signs 11/18/18 11/18/18 11/18/18 09:26 10:00 10:44 Temperature 98.7 F Pulse Rate 128 H 122 H 104 H Respiratory 24 18 Rate Blood Pressure 148/73 158/85 O2 Sat by Pulse 95 98 Oximetry 11/18/18 11/18/18 10:52 11:00 Temperature Pulse Rate 107 H 103 H Respiratory 18 Rate Blood Pressure 130/61 O2 Sat by Pulse 99 Oximetry EKG Findings - EKG Comments: EKG Findings:: EKG: Sinus tachycardia with PAC, rate of 127, NV interval 122, QRS duration 78, QTC 453, no ST segment elevation or depression Medical Decision Making - Medical Decision Making 77-year-old female presenting with cough and dyspnea, history of lung cancer and COPD. Chest x-ray obtained, shows red upper lobe mass with possible cavitation, CT is obtained both for elevated d-dimer and history of lung mass, this is negative for pulmonary embolism, shows right upper lobe mass which is slightly increased compared to prior and postobstructive pneumonitis. Patient has normal white blood cell count, hemoglobin is 8.9 which is improved from previous. Remainder of her laboratory studies are unremarkable. She will be admitted for IV hydration, treatment of COPD, and antibiotics for postobstructive pneumonia. Case discussed with admitting physician, oncology placed on consult. - Lab Data Result diagrams: 11/18/18 10:03 11/18/18 10:03 Lab Results 11/18/18 11/18/18 11/18/18 Range/Units 10:03 10:03 10:03 WBC 8.1 (3.8-10.6) k/uL RBC 3.40 L (3.80-5.40) m/uL Hgb 8.9 L (11.4-16.0) gm/dL Hct 29.5 L (34.0-46.0) % MCV 86.9 (80.0-100.0) fL MCH 26.2 (25.0-35.0) pg MCHC 30.2 L (31.0-37.0) g/dL RDW 15.8 H (11.5-15.5) % Plt Count 385 (150-450) k/uL Neutrophils % 90 % Lymphocytes % 4 % Monocytes % 3 % Eosinophils % 2 % Basophils % 0 % Neutrophils # 7.3 (1.3-7.7) k/uL Lymphocytes # 0.3 L (1.0-4.8) k/uL Monocytes # 0.2 (0-1.0) k/uL Eosinophils # 0.1 (0-0.7) k/uL Basophils # 0.0 (0-0.2) k/uL Hypochromasia Marked PT (9.0-12.0) sec INR (<1.2) APTT (22.0-30.0) sec D-Dimer (<0.60) mg/L FEU Sodium 136 L (137-145) mmol/L Potassium 4.7 (3.5-5.1) mmol/L Chloride 99 (98-107) mmol/L Carbon Dioxide 27 (22-30) mmol/L Anion Gap 10 mmol/L BUN 13 (7-17) mg/dL Creatinine 0.49 L (0.52-1.04) mg/dL Est GFR (CKD-EPI)AfAm >90 (>60 ml/min/1.73 sqM) Est GFR (CKD-EPI)NonAf >90 (>60 ml/min/1.73 sqM) Glucose 149 H (74-99) mg/dL Plasma Lactic Acid Markus (0.7-2.0) mmol/L Calcium 9.4 (8.4-10.2) mg/dL Magnesium 2.0 (1.6-2.3) mg/dL Total Bilirubin 0.4 (0.2-1.3) mg/dL AST 18 (14-36) U/L ALT 18 (9-52) U/L Alkaline Phosphatase 104 (38-126) U/L Total Creatine Kinase 25 L (30-135) U/L CK-MB (CK-2) <0.2 (0.0-2.4) ng/mL CK-MB (CK-2) Rel Index Troponin I <0.012 (0.000-0.034) ng/mL NT-Pro-B Natriuret Pep pg/mL Total Protein 6.6 (6.3-8.2) g/dL Albumin 3.4 L (3.5-5.0) g/dL 11/18/18 11/18/18 11/18/18 Range/Units 10:03 10:03 10:03 WBC (3.8-10.6) k/uL RBC (3.80-5.40) m/uL Hgb (11.4-16.0) gm/dL Hct (34.0-46.0) % MCV (80.0-100.0) fL MCH (25.0-35.0) pg MCHC (31.0-37.0) g/dL RDW (11.5-15.5) % Plt Count (150-450) k/uL Neutrophils % % Lymphocytes % % Monocytes % % Eosinophils % % Basophils % % Neutrophils # (1.3-7.7) k/uL Lymphocytes # (1.0-4.8) k/uL Monocytes # (0-1.0) k/uL Eosinophils # (0-0.7) k/uL Basophils # (0-0.2) k/uL Hypochromasia PT 10.8 (9.0-12.0) sec INR 1.0 (<1.2) APTT 23.7 (22.0-30.0) sec D-Dimer 1.29 H (<0.60) mg/L FEU Sodium (137-145) mmol/L Potassium (3.5-5.1) mmol/L Chloride (98-107) mmol/L Carbon Dioxide (22-30) mmol/L Anion Gap mmol/L BUN (7-17) mg/dL Creatinine (0.52-1.04) mg/dL Est GFR (CKD-EPI)AfAm (>60 ml/min/1.73 sqM) Est GFR (CKD-EPI)NonAf (>60 ml/min/1.73 sqM) Glucose (74-99) mg/dL Plasma Lactic Acid Markus 1.2 (0.7-2.0) mmol/L Calcium (8.4-10.2) mg/dL Magnesium (1.6-2.3) mg/dL Total Bilirubin (0.2-1.3) mg/dL AST (14-36) U/L ALT (9-52) U/L Alkaline Phosphatase (38-126) U/L Total Creatine Kinase (30-135) U/L CK-MB (CK-2) (0.0-2.4) ng/mL CK-MB (CK-2) Rel Index Troponin I (0.000-0.034) ng/mL NT-Pro-B Natriuret Pep 402 pg/mL Total Protein (6.3-8.2) g/dL Albumin (3.5-5.0) g/dL Disposition Clinical Impression: Acute exacerbation of chronic obstructive airways disease, Lung cancer, Postobstructive pneumonia Disposition[facility] Condition: Stable Is patient prescribed a controlled substance at d/c from ED?: No Referrals: Sara Carrasco MD [Primary Care Provider] - 1-2 days Decision to Admit Reason: Admit from EC Decision Date: 11/18/18 Decision Time: 12:44
[2018-11-18 10:14] LABS: Basophils % (A) 0 %; Eosinophils # (A) 0.1 k/uL (0-0.7); Eosinophils % (A) 2 %; HCT 29.5 % (34.0-46.0); HGB 8.9 gm/dL (11.4-16.0); Hypochromasia Marked; Lymphocytes # (A) 0.3 k/uL (1.0-4.8); Lymphocytes % (A) 4 %; MCH 26.2 pg (25.0-35.0); MCHC 30.2 g/dL (31.0-37.0); MCV 86.9 fL (80.0-100.0); Mean Platelet Volume 6.9; Monocytes # (A) 0.2 k/uL (0-1.0); Monocytes % (A) 3 %; Neutrophils # (A) 7.3 k/uL (1.3-7.7); Neutrophils % (A) 90 %; Platelet Count 385 k/uL (150-450); RDW 15.8 % (11.5-15.5); WBC 8.1 k/uL (3.8-10.6)
[2018-11-18 10:24] LABS: ALT 18 U/L (9-52); AST 18 U/L (14-36); Albumin 3.4 g/dL (3.5-5.0); Alkaline Phosphatase 104 U/L (38-126); Anion Gap 10 mmol/L; Blood Urea Nitrogen 13 mg/dL (7-17); Calcium 9.4 mg/dL (8.4-10.2); Carbon Dioxide 27 mmol/L (22-30); Chloride 99 mmol/L (98-107); Glucose 149 mg/dL (74-99); Potassium 4.7 mmol/L (3.5-5.1); Sodium 136 mmol/L (137-145); Total Bilirubin 0.4 mg/dL (0.2-1.3); Total Protein 6.6 g/dL (6.3-8.2)
[2018-11-18 10:29] LABS: Partial Thromboplastin Time 23.7 sec (22.0-30.0); Prothrombin Time 10.8 sec (9.0-12.0)
[2018-11-18 10:34] LABS: Creatine Kinase 25 U/L (30-135)
--- NOTE | 2018-11-18 10:42 | XR ---
EXAMINATION TYPE: XR chest 2V DATE OF EXAM: 11/18/2018 COMPARISON: 11/14/2017 HISTORY: 89 year-old female shortness of breath, cough, difficulty breathing, history of lung and nam ast cancer TECHNIQUE: AP and lateral views FINDINGS: COPD with normal heart size. Redemonstrated destructive peripheral right upper lobe mass. There is in terval cavitation with air-fluid level. Anterior wedging of a lower thoracic vertebral body was prese nt on the patient's 07/13/2018 CT. IMPRESSION: COPD. Redemonstrated right upper lobe mass with known chest wall invasion and right rib destruction.. This shows more pronounced cavitation now with air-fluid level that could represent superinfection. Clinically correlate.
[2018-11-18 10:48] LABS: Creatine Kinase MB <0.2 ng/mL (0.0-2.4); Troponin I <0.012 ng/mL (0.000-0.034)
[2018-11-18 11:04] LABS: D-Dimer 1.29 mg/L FEU (<0.60)
--- NOTE | 2018-11-18 12:32 | CT ---
EXAMINATION TYPE: CT angio chest DATE OF EXAM: 11/18/2018 COMPARISON: PET/CT 09/02/[address] chest 07/13/2018 HISTORY: 77-year-old female SOB TECHNIQUE: Contiguous axial scanning of the chest performed with IV Contrast, patient injected with 6 0 mL of Isovue 370. Coronal/sagittal MIP reconstructions performed. CT DLP: 163.3 mGycm Automated exposure control for dose reduction was used. FINDINGS: Heart normal size without pericardial effusion. Coronary vessel calcifications are present. Aorta normal caliber with moderate atherosclerotic arch calcifications and arch vessels branching sho man. Satisfactory opacification of pulmonary consistent. No evidence for pulmonary embolus. Redemonstrated multilobulated peripheral right upper lobe mass that shows right lateral chest wall in vasion with rib destruction and extends to the right hilum. The lobulated right hilar portion of the mass measures 4.1 cm versus 3.4 cm, previously. The contiguo us peripheral component of the mass measures 6.9 x 2.8 cm versus 6.2 x 2.9 cm, previously. There is new internal air cavitation and continued surrounding patchy interstitial and airspace opaci ty extending peripherally, for example, axial image 59. Mild layering secretions in the trachea and mainstem bronchi. Moderate to advanced centrilobular emphysema. No pleural effusion. 8 mm precarinal lymph node is unchanged. Multiple thyroid nodules redemonstrated. Small hiatal hernia. Visualized upper abdomen shows tortuous abdominal aorta. A few scattered nonobst ructive 3 mm and smaller renal calculi. Degenerated scoliosis. T12 vertebral compression deformity was present previously additional endplate deformities of T11 and L2 are also unchanged. IMPRESSION: 1. NO EVIDENCE FOR PULMONARY EMBOLUS. 2. KNOWN MULTILOBULATED RIGHT UPPER LOBE MALIGNANCY EXTENDING FROM THE RIGHT HILUM AND INVADING THE C HEST WALL WITH ASSOCIATED RIB DESTRUCTION. THE PERIPHERAL COMPONENT OF THE MASS HAS INCREASED 6.9 CM VERSUS 6.2 CM, PREVIOUSLY, AND THE CONTIGUOUS RIGHT HILAR COMPONENT OF THE MASS HAS ALSO INCREASED ME ASURING 4.1 CM VERSUS 3.4 CM, PREVIOUSLY. 3. THERE IS NEW AIR CAVITATION WITHIN THE MASS. NO PROGRESSIVE LYMPHADENOPATHY SEEN AT THIS TIME. 4. SUSPECT SOME CONTINUED POSTOBSTRUCTIVE PNEUMONITIS OR ATELECTASIS. 5. COPD WITH MODERATE TO ADVANCED EMPHYSEMA. MILD DEPENDENT SECRETIONS WITHIN THE TRACHEA AND MAINSTE M BRONCHI.
[2018-11-18] MEDS ORDERED: LEVOFLOXACIN 500MG-D5W PMX 500 MG in DEXTROSE/WATER 1 100ML.BAG IVPB STA (12:37)
[2018-11-18] MEDS ORDERED: IPRATROPIUM-ALBUTEROL 3 ML NEB INHALATION PRN (12:40)
[2018-11-18 14:29] VITALS: BMI 14.9
[2018-11-18] MEDS ORDERED: HYDROcodone/APAP 5-325MG 1 EACH TAB PO PRN (14:49)
[2018-11-18] MEDS ORDERED: NIVOLUMAB IV SCH (15:00)
[2018-11-18] MEDS: IPRATROPIUM-ALBUTEROL 3 ML NEB INHALATION SCH ×2 (16:18→20:10)
--- NOTE | 2018-11-18 19:00 | HP ---
HISTORY AND PHYSICAL CHIEF COMPLAINT: Shortness of breath. HISTORY OF PRESENT ILLNESS: This is another admission for this 77-year-old white female who has advancing carcinoma of the lung. She got up in the morning and felt short of breath. She came to the emergency room. She also notices her fingernails were cyanotic and her pulse was 88. She had no fever, chills, hemoptysis, etc. She has also had CA of the breast in the past and she is followed locally by Oncology (Dr. Stevens). She has had radiation and chemotherapy and now she is on immunotherapy. REVIEW OF SYSTEMS: She has had no headaches, neurologic deficits, changes in vision or hearing, heart disease, palpitations, nausea, vomiting, hematemesis, melena, jaundice, hematuria, frequency, urgency, renal failure, diabetes, etc. Past medical history, family history and personal and social histories are essentially otherwise unremarkable. She is allergic to AMOXICILLIN, CEPHALOSPORINS, CLARITHROMYCIN, CLAVULANIC ACID, AND CODEINE. She is currently on albuterol inhaler, vitamin D3, simvastatin, calcium, Vicodin, loratadine, lutein and nivolumab. She still smokes some. PHYSICAL EXAM: Temperature 97.7 and pulse is 107, blood pressure 130/61, and respirations are 18. In general she appeared to be pale and chronically ill. Skin was dry. Head, ears, eyes, nose, mouth, and throat were normal. She had poor dentition. Neck veins not distended. Chest demonstrated decreased breath sounds throughout. Cardiac exam demonstrated sinus rhythm and no murmurs or extra sounds. The abdomen is flat, soft and nontender without masses. Extremities normal. Neurological is intact. She is admitted to the hospital with diagnoses. 1. Shortness of breath. 2. Advanced carcinoma of the lung. 3. Chronic obstructive pulmonary disease. 4. History of breast cancer. PLAN: 1. Bed rest. 2. IV fluids. 3. Nasal O2. 4. Updrafts. 5. Consult with Oncology. MMODL / IJN: [id number] /
--- NOTE | 2018-11-18 19:07 | P.CONS ---
History of Present Illness - Reason for Consult Consult date: 11/18/18 Lung cancer Requesting physician: Richie Ivory - Chief Complaint Dyspnea - History of Present Illness Ms. Almendarez is a very pleasant 77-year-old female, patient of Dr. Stevens, who is here for dyspnea. 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 MRI of the brain was negative. PET scan revealed a right upper lobe mass with recommendation otherwise was negative. PD L1 was negative. Molecular studies including EGFR, ALK, and BRAF were negative. She underwent chemotherapy with radiation on . Repeat CT posttreatment did reveal improvement in her disease. Maintenance therapy with durvalumab was discussed however she opted against this. Restaging PET in August 2018 did reveal disease progression in the lung. She was subsequently started on palliative Opdivo, which she's received 3 doses of so far, on 10/10, 10/24, and 11/07/18. She did begin having worsening shortness of breath and ended up in the ER. CT of the chest reveals a cavitary right upper lobe mass. She was admitted for management of possible postobstructive pneumonia and COPD exacerbation. She was given 1 dose of Solu-Medrol in the ER. She has been afebrile. Slightly tachycardic. Hypoxic, currently on oxygen. Not on oxygen at home. Otherwise vitals are stable. Feeling slightly better. Review of Systems All systems: negative Constitutional: Reports as per HPI Past Medical History Past Medical History: Cancer, COPD, Hyperlipidemia, Osteoarthritis (OA), Respiratory Disorder Additional Past Medical History / Comment(s): - fracture ribs rt, emphysema, Lung cancer did not fall in last three months History of Any Multi-Drug Resistant Organisms: None Reported Past Surgical History: Breast Surgery, Tonsillectomy, Tubal Ligation Additional Past Surgical History / Comment(s): LEFT MASTECOMY benign . LEFT FOOT FX .LEFT RIBS FX. LEFT TOES FX Past Anesthesia/Blood Transfusion Reactions: No Reported Reaction Past Psychological History: No Psychological Hx Reported Smoking Status: Current every day smoker Past Alcohol Use History: None Reported Past Drug Use History: None Reported - Past Family History Mother Family Medical History: Cancer Additional Family Medical History / Comment(s): breast Father Family Medical History: Cancer Medications and Allergies Home Medications Medication Instructions Recorded Confirmed Type Lutein 20 mg PO DAILY 02/03/17 11/18/18 History Simvastatin [Zocor] 40 mg PO HS 02/03/17 11/18/18 History Albuterol Inhaler [Ventolin Hfa 2 puff INHALATION RT-Q6H PRN 11/01/17 11/18/18 History Inhaler] Calcium Carbonate [Calcium] 600 mg PO DAILY 11/01/17 11/18/18 History Cholecalciferol [Vitamin D3] 1,000 unit PO DAILY 11/01/17 11/18/18 History Loratadine [Claritin] 10 mg PO DAILY 11/01/17 11/18/18 History Hydrocodone/Acetaminophen [[place] 1 tab PO Q6HR PRN 01/27/18 11/18/18 History 5-325] Nivolumab [Opdivo] 100 mg IV Q14D 11/18/18 11/18/18 History Allergies Allergy/AdvReac Type Severity Reaction Status Date / Time amoxicillin [From Augmentin] Allergy Unknown Verified 11/18/18 10:26 cefaclor [From Ceclor] Allergy Unknown Verified 11/18/18 10:26 clarithromycin [From Biaxin] Allergy Unknown Verified 11/18/18 10:26 clavulanic acid Allergy Unknown Verified 11/18/18 10:26 [From Augmentin] codeine AdvReac Nausea & Verified 11/18/18 10:26 Vomiting & Diarrhea Physical Exam Vitals: Vital Signs Temp Pulse Pulse Resp BP BP Pulse Ox 11/18/18 16:30 88 16 11/18/18 16:28 105 H 11/18/18 16:18 105 H 11/18/18 14:33 97.7 F 88 16 117/70 98 11/18/18 13:00 101 H 18 128/77 98 11/18/18 12:00 103 H 18 128/68 99 11/18/18 11:00 103 H 18 130/61 99 11/18/18 10:52 107 H 11/18/18 10:44 104 H 11/18/18 10:00 122 H 18 158/85 98 11/18/18 09:26 98.7 F 128 H 24 148/73 95 Intake and Output 11/18/18 11/18/18 11/18/18 06:59 14:59 22:59 Other: # Voids 1 Weight 39.463 kg General: In no acute distress. HEENT: Mucosa moist. Neck: Neck supple. Lymph: No cervical/supraclavicular LAD. Lungs: CTA-B without wheezing or rhonchi. Heart: RRR. No LE edema. Abdomen: Soft, nontender, nondistended, with positive bowel sounds. MSK: 4/4 strength in all 4 extremities. Neuro: Alert and oriented 3. No obvious gross neurologic deficits. Skin: No jaundice or rash. Psych: Appropriate affect. Results CBC & Chem 7: 11/18/18 10:03 11/18/18 10:03 Labs: Abnormal Lab Results - Last 24 Hours (Table) 11/18/18 11/18/18 11/18/18 Range/Units 10:03 10:03 10:03 RBC 3.40 L (3.80-5.40) m/uL Hgb 8.9 L (11.4-16.0) gm/dL Hct 29.5 L (34.0-46.0) % MCHC 30.2 L (31.0-37.0) g/dL RDW 15.8 H (11.5-15.5) % Lymphocytes # 0.3 L (1.0-4.8) k/uL D-Dimer (<0.60) mg/L FEU Sodium 136 L (137-145) mmol/L Creatinine 0.49 L (0.52-1.04) mg/dL Glucose 149 H (74-99) mg/dL Total Creatine Kinase 25 L (30-135) U/L Albumin 3.4 L (3.5-5.0) g/dL 11/18/18 Range/Units 10:03 RBC (3.80-5.40) m/uL Hgb (11.4-16.0) gm/dL Hct (34.0-46.0) % MCHC (31.0-37.0) g/dL RDW (11.5-15.5) % Lymphocytes # (1.0-4.8) k/uL D-Dimer 1.29 H (<0.60) mg/L FEU Sodium (137-145) mmol/L Creatinine (0.52-1.04) mg/dL Glucose (74-99) mg/dL Total Creatine Kinase (30-135) U/L Albumin (3.5-5.0) g/dL Chest x-ray: report reviewed CT scan - chest: report reviewed Assessment and Plan Assessment: 1. Squamous cell lung cancer 2. On immunotherapy 3. Dyspnea 4. Possible post-obstructive pneumonia 5. Possible COPD exacerbation Plan: Parent is a very pleasant 77-year-old female with history of squamous cell lung cancer of the right upper lobe status post chemo RT followed by local recurrence, recently started on immunotherapy status post 3 cycles of Opdivo, last on 11/07/18, here for worsening shortness of breath. Her CT shows cavitary lesions in the right upper lobe mass, possibly related to treatment effect versus infection. Agree with treating a COPD exacerbation and postobstructive pneumonia. Her next dose of Opdivo will be due on 11/22/18. If patient remains in the hospital at that time, we'll plan on holding the treatment until she improves and is discharged. Discussed with pt and she is agreeable to the plan. All questions answered.
[2018-11-19] MEDS: IPRATROPIUM-ALBUTEROL 3 ML NEB INHALATION SCH ×4 (07:41→21:16)
[2018-11-19] MEDS: CALCIUM CARBONATE 500 MG CHEWABLE PO SCH (07:47)
[2018-11-19] MEDS: LORATADINE 10 MG TAB PO SCH (07:47)
[2018-11-19] MEDS ORDERED: NON-FORMULARY DRUG (Lutein [Lutein] 20 MG) PO SCH (09:00)
--- NOTE | 2018-11-19 12:57 | PN ---
PROGRESS NOTE CHIEF COMPLAINT: Shortness of breath, COPD, CA lung. HISTORY OF PRESENT ILLNESS: This lady is doing a little fairly well today and is comfortable. She has had no significant pain. She has had no hemoptysis. PHYSICAL EXAM: Chest is clear. Cardiac exam is normal. Abdomen is soft and nontender. IMPRESSION: 1. Chronic obstructive pulmonary disease. 2. Pneumonitis. PLAN: Try to progress activity and diet. MMODL / IJN: [id number] /
[2018-11-20] MEDS: IPRATROPIUM-ALBUTEROL 3 ML NEB INHALATION SCH ×4 (07:34→20:21)
[2018-11-20] MEDS: LORATADINE 10 MG TAB PO SCH (08:56)
[2018-11-20] MEDS: CALCIUM CARBONATE 500 MG CHEWABLE PO SCH (08:56)
--- NOTE | 2018-11-20 18:17 | PN ---
PROGRESS NOTE CHIEF COMPLAINT: COPD, pneumonitis and pulmonary neoplasm. HISTORY OF PRESENT ILLNESS: This lady is doing fairly well. She still feels quite weak. She is not having pain or running a fever. PHYSICAL EXAM: Breath sounds are heard on both sides. Cardiac exam is normal. Abdomen is flat and soft. She is afebrile. IMPRESSION: 1. Pneumonitis. 2. Chronic obstructive pulmonary disease. 3. Carcinoma of the lung. PLAN: Continue with current treatment including updrafts and await any further recommendations from Oncology. We will also have to consider discharge planning. MMODL / IJN: [id number] /
[2018-11-20 21:51] VITALS: RESP 16
[2018-11-21 06:35] VITALS: BP 120/68; TEMP 98.2
[2018-11-21] MEDS: CALCIUM CARBONATE 500 MG CHEWABLE PO SCH (07:33)
[2018-11-21] MEDS: LORATADINE 10 MG TAB PO SCH (07:33)
[2018-11-21] MEDS: IPRATROPIUM-ALBUTEROL 3 ML NEB INHALATION SCH ×2 (07:35→12:03)
[2018-11-21 12:15] VITALS: PULSE 88
--- NOTE | 2018-11-22 17:39 | DS ---
DISCHARGE SUMMARY CHIEF COMPLAINT: Weakness, cough, shortness of breath and CA of the lung. HISTORY OF PRESENT ILLNESS AND PHYSICAL EXAM: Details of this lady's history and physical can be found in the initial workup. LABORATORY STUDIES: While she was in a hospital, she had laboratory studies, details which can be found in the laboratory section of her chart. COURSE IN THE HOSPITAL: After admission she was placed on bedrest, started on intravenous fluids and IV antibiotics as well as updrafts and did well. She was anxious to be discharged. It was felt that she could go home on the . She will follow up in several days in the office and she will also be seen by Oncology. FINAL DIAGNOSIS: 1. Obstructive bronchial pneumonia. 2. Terminal carcinoma of the lung. 3. Chronic obstructive pulmonary disease. OPERATIONS: None. CONSULTATIONS: Oncology. She is improved. MMMARCIO / DAVID: [id number] /
== END 2018-11-21 14:16 | disposition home or self-care (01) | DRG 190 ==
LOC: EC 09:23 → 3NMEDONC 12:40
PROVIDERS: ADMIT Family Medicine; ATTEND Family Medicine
DX: J44.0 Chronic obstructive pulmonary disease with (acute) lower respiratory infection (principal); J18.0 Bronchopneumonia, unspecified organism; C34.11 Malignant neoplasm of upper lobe, right bronchus or lung; E78.5 Hyperlipidemia, unspecified; F17.210 Nicotine dependence, cigarettes, uncomplicated; J44.1 Chronic obstructive pulmonary disease with (acute) exacerbation; R09.02 Hypoxemia; Z85.3 Personal history of malignant neoplasm of breast; Z92.21 Personal history of antineoplastic chemotherapy; Z92.3 Personal history of irradiation; Z90.12 Acquired absence of left breast and nipple; Z80.3 Family history of malignant neoplasm of breast; Z80.9 Family history of malignant neoplasm, unspecified; Z88.1 Allergy status to other antibiotic agents; Z88.5 Allergy status to narcotic agent; Z88.0 Allergy status to penicillin
CPT/HCPCS: 36415; 71046; 71275; 80053; 82550; 82553; 83605; 83735; 83880; 84484; 85025; 85379; 85610; 85730; 87040; 93005; 94640; 94760; 96361; 96365; 96375; 99285

== ENCOUNTER 2018-12-28 19:57 | Inpatient (IN) | payer MEDICARE, BC ==
[2018-12-28] MEDS ORDERED: methylPREDNISolone SOD SUCCI 125 MG/2 ML VIAL IV STA (20:24)
[2018-12-28] MEDS ORDERED: IPRATROPIUM-ALBUTEROL 3 ML NEB INHALATION STA ×2 (20:24→22:46)
--- NOTE | 2018-12-28 20:27 | ED ---
SOB HPI - General Chief Complaint: Shortness of Breath Stated Complaint: JOSE J, Lung cancer pt Time Seen by Provider: 12/28/18 20:11 Source: patient, family, RN notes reviewed, old records reviewed Mode of arrival: wheelchair Limitations: no limitations - History of Present Illness Initial Comments: This is a 78-year-old female with a history of stage III lung cancer COPD who still smokes who presents with complaints of shortness of breath started last night. She has a cough of whitish phlegm she had low-grade fever today. She has exertional dyspnea. No overt chest pain. No other modifying factors at this time. She does occasionally smoke one cigarette today. MD Complaint: shortness of breath, cough - Related Data Home Medications Medication Instructions Recorded Confirmed Lutein 20 mg PO DAILY 02/03/17 12/28/18 Simvastatin [Zocor] 40 mg PO HS 02/03/17 12/28/18 Albuterol Inhaler [Ventolin Hfa 2 puff INHALATION RT-Q6H PRN 11/01/17 12/28/18 Inhaler] Calcium Carbonate [Calcium] 600 mg PO DAILY 11/01/17 12/28/18 Cholecalciferol [Vitamin D3] 1,000 unit PO DAILY 11/01/17 12/28/18 Loratadine [Claritin] 10 mg PO DAILY 11/01/17 12/28/18 Hydrocodone/Acetaminophen [[place] 1 tab PO Q6HR PRN 01/27/18 12/28/18 5-325] Cyanocobalamin [Vitamin B-12] 500 mcg PO DAILY 12/28/18 12/28/18 Fluticasone/Vilanterol [Breo 1 puff INHALATION RT-DAILY 12/28/18 12/28/18 Ellipta 200-25 Mcg INH] Megestrol [Megace] 40 mg PO DAILY 12/28/18 12/28/18 Allergies Allergy/AdvReac Type Severity Reaction Status Date / Time amoxicillin [From Augmentin] Allergy Unknown Verified 12/28/18 20:40 cefaclor [From Ceclor] Allergy Unknown Verified 12/28/18 20:40 clarithromycin [From Biaxin] Allergy Unknown Verified 12/28/18 20:40 clavulanic acid Allergy Unknown Verified 12/28/18 20:40 [From Augmentin] codeine AdvReac Nausea & Verified 12/28/18 20:40 Vomiting & Diarrhea Review of Systems ROS Statement: Those systems with pertinent positive or pertinent negative responses have been documented in the HPI. ROS Other: All systems not noted in ROS Statement are negative. Past Medical History Past Medical History: Cancer, COPD, Hyperlipidemia, Osteoarthritis (OA), Respiratory Disorder Additional Past Medical History / Comment(s): - fracture ribs rt, emphysema, Lung cancer History of Any Multi-Drug Resistant Organisms: None Reported Past Surgical History: Breast Surgery, Tonsillectomy, Tubal Ligation Additional Past Surgical History / Comment(s): LEFT MASTECOMY benign . LEFT FOOT FX .LEFT RIBS FX. LEFT TOES FX Past Anesthesia/Blood Transfusion Reactions: No Reported Reaction Past Psychological History: No Psychological Hx Reported Smoking Status: Current every day smoker Past Alcohol Use History: None Reported Past Drug Use History: None Reported - Past Family History Mother Family Medical History: Cancer Additional Family Medical History / Comment(s): breast Father Family Medical History: Cancer General Exam - General Exam Comments Initial Comments: This is a well-developed asthenic appearing female who is awake alert oriented 3 Limitations: no limitations General appearance: alert, anxious, in distress Head exam: Present: atraumatic, normocephalic, normal inspection Eye exam: Present: normal appearance, PERRL, EOMI. Absent: scleral icterus, conjunctival injection, periorbital swelling ENT exam: Present: mucous membranes dry Neck exam: Present: normal inspection, full ROM, other (No stridor JVD or bruits ). Absent: tenderness, meningismus, lymphadenopathy Respiratory exam: Present: wheezes, rhonchi, decreased breath sounds. Absent: respiratory distress, rales, stridor Cardiovascular Exam: Present: normal rhythm, tachycardia, normal heart sounds. Absent: systolic murmur, diastolic murmur, rubs, gallop, clicks GI/Abdominal exam: Present: soft, normal bowel sounds. Absent: distended, tenderness, guarding, rebound, rigid Extremities exam: Present: normal inspection, full ROM, normal capillary refill. Absent: tenderness, pedal edema, joint swelling, calf tenderness Back exam: Present: normal inspection Neurological exam: Present: alert, oriented X3, CN II-XII intact Psychiatric exam: Present: normal affect, normal mood Skin exam: Present: warm, dry, intact, normal color. Absent: rash Course Vital Signs 12/28/18 12/28/18 12/28/18 19:59 21:00 21:21 Temperature 99.6 F Pulse Rate 109 H 115 H 112 H Respiratory 16 20 18 Rate Blood Pressure 124/59 135/74 O2 Sat by Pulse 91 L 97 Oximetry 12/28/18 12/28/18 21:26 21:34 Temperature 98.4 F Pulse Rate 115 H Respiratory 18 Rate Blood Pressure O2 Sat by Pulse Oximetry - Reevaluation(s) Reevaluation #1: 12/28/18 22:47 Minimal improvement after the initial therapy. Reevaluation #2: 12/28/18 22:49 Repeat updraft will be initiated as well as IV magnesium. Medical Decision Making - Medical Decision Making Reevaluation patient reveals still minimal improvement. I did discuss the findings with her and her daughter. Patient will be admitted I did discuss the case with Dr. Merrill. Dr. Barragan will be consulted as well as Dr. Stevens. - Lab Data Result diagrams: 12/28/18 21:22 12/28/18 21:22 Lab Results 12/28/18 12/28/18 12/28/18 Range/Units 20:55 21:22 21:22 WBC 7.6 (3.8-10.6) k/uL RBC 3.15 L (3.80-5.40) m/uL Hgb 8.0 L (11.4-16.0) gm/dL Hct 26.9 L (34.0-46.0) % MCV 85.4 (80.0-100.0) fL MCH 25.3 (25.0-35.0) pg MCHC 29.7 L (31.0-37.0) g/dL RDW 17.5 H (11.5-15.5) % Plt Count 348 (150-450) k/uL Neutrophils % 92 % Lymphocytes % 2 % Monocytes % 3 % Eosinophils % 1 % Basophils % 0 % Neutrophils # 7.0 (1.3-7.7) k/uL Lymphocytes # 0.2 L (1.0-4.8) k/uL Monocytes # 0.2 (0-1.0) k/uL Eosinophils # 0.1 (0-0.7) k/uL Basophils # 0.0 (0-0.2) k/uL Hypochromasia Marked Anisocytosis Slight PT (9.0-12.0) sec INR (<1.2) APTT (22.0-30.0) sec Sodium (137-145) mmol/L Potassium (3.5-5.1) mmol/L Chloride (98-107) mmol/L Carbon Dioxide (22-30) mmol/L Anion Gap mmol/L BUN (7-17) mg/dL Creatinine (0.52-1.04) mg/dL Est GFR (CKD-EPI)AfAm (>60 ml/min/1.73 sqM) Est GFR (CKD-EPI)NonAf (>60 ml/min/1.73 sqM) Glucose (74-99) mg/dL Plasma Lactic Acid Markus (0.7-2.0) mmol/L Calcium (8.4-10.2) mg/dL Magnesium (1.6-2.3) mg/dL Total Bilirubin (0.2-1.3) mg/dL AST (14-36) U/L ALT (9-52) U/L Alkaline Phosphatase (38-126) U/L Total Creatine Kinase 38 (30-135) U/L CK-MB (CK-2) <0.2 (0.0-2.4) ng/mL CK-MB (CK-2) Rel Index Troponin I 0.013 (0.000-0.034) ng/mL NT-Pro-B Natriuret Pep pg/mL Total Protein (6.3-8.2) g/dL Albumin (3.5-5.0) g/dL Influenza Type A RNA Not Detected (Not Detectd) Influenza Type B (PCR) Not Detected (Not Detectd) 12/28/18 12/28/18 12/28/18 Range/Units 21:22 21:22 21:22 WBC (3.8-10.6) k/uL RBC (3.80-5.40) m/uL Hgb (11.4-16.0) gm/dL Hct (34.0-46.0) % MCV (80.0-100.0) fL MCH (25.0-35.0) pg MCHC (31.0-37.0) g/dL RDW (11.5-15.5) % Plt Count (150-450) k/uL Neutrophils % % Lymphocytes % % Monocytes % % Eosinophils % % Basophils % % Neutrophils # (1.3-7.7) k/uL Lymphocytes # (1.0-4.8) k/uL Monocytes # (0-1.0) k/uL Eosinophils # (0-0.7) k/uL Basophils # (0-0.2) k/uL Hypochromasia Anisocytosis PT 10.3 (9.0-12.0) sec INR 1.0 (<1.2) APTT 23.4 (22.0-30.0) sec Sodium 138 (137-145) mmol/L Potassium 4.6 (3.5-5.1) mmol/L Chloride 103 (98-107) mmol/L Carbon Dioxide 26 (22-30) mmol/L Anion Gap 9 mmol/L BUN 14 (7-17) mg/dL Creatinine 0.46 L (0.52-1.04) mg/dL Est GFR (CKD-EPI)AfAm >90 (>60 ml/min/1.73 sqM) Est GFR (CKD-EPI)NonAf >90 (>60 ml/min/1.73 sqM) Glucose 137 H (74-99) mg/dL Plasma Lactic Acid Markus (0.7-2.0) mmol/L Calcium 8.9 (8.4-10.2) mg/dL Magnesium 1.9 (1.6-2.3) mg/dL Total Bilirubin 0.4 (0.2-1.3) mg/dL AST 22 (14-36) U/L ALT 25 (9-52) U/L Alkaline Phosphatase 105 (38-126) U/L Total Creatine Kinase (30-135) U/L CK-MB (CK-2) (0.0-2.4) ng/mL CK-MB (CK-2) Rel Index Troponin I (0.000-0.034) ng/mL NT-Pro-B Natriuret Pep 773 pg/mL Total Protein 6.2 L (6.3-8.2) g/dL Albumin 3.1 L (3.5-5.0) g/dL Influenza Type A RNA (Not Detectd) Influenza Type B (PCR) (Not Detectd) 12/28/18 Range/Units 21:22 WBC (3.8-10.6) k/uL RBC (3.80-5.40) m/uL Hgb (11.4-16.0) gm/dL Hct (34.0-46.0) % MCV (80.0-100.0) fL MCH (25.0-35.0) pg MCHC (31.0-37.0) g/dL RDW (11.5-15.5) % Plt Count (150-450) k/uL Neutrophils % % Lymphocytes % % Monocytes % % Eosinophils % % Basophils % % Neutrophils # (1.3-7.7) k/uL Lymphocytes # (1.0-4.8) k/uL Monocytes # (0-1.0) k/uL Eosinophils # (0-0.7) k/uL Basophils # (0-0.2) k/uL Hypochromasia Anisocytosis PT (9.0-12.0) sec INR (<1.2) APTT (22.0-30.0) sec Sodium (137-145) mmol/L Potassium (3.5-5.1) mmol/L Chloride (98-107) mmol/L Carbon Dioxide (22-30) mmol/L Anion Gap mmol/L BUN (7-17) mg/dL Creatinine (0.52-1.04) mg/dL Est GFR (CKD-EPI)AfAm (>60 ml/min/1.73 sqM) Est GFR (CKD-EPI)NonAf (>60 ml/min/1.73 sqM) Glucose (74-99) mg/dL Plasma Lactic Acid Markus 0.7 (0.7-2.0) mmol/L Calcium (8.4-10.2) mg/dL Magnesium (1.6-2.3) mg/dL Total Bilirubin (0.2-1.3) mg/dL AST (14-36) U/L ALT (9-52) U/L Alkaline Phosphatase (38-126) U/L Total Creatine Kinase (30-135) U/L CK-MB (CK-2) (0.0-2.4) ng/mL CK-MB (CK-2) Rel Index Troponin I (0.000-0.034) ng/mL NT-Pro-B Natriuret Pep pg/mL Total Protein (6.3-8.2) g/dL Albumin (3.5-5.0) g/dL Influenza Type A RNA (Not Detectd) Influenza Type B (PCR) (Not Detectd) - Radiology Data Radiology results: report reviewed (I did review the imaging and report is evidence a right upper lobe mass with cavitary infiltrate unchanged from previous exams), image reviewed Critical Care Time Critical Care Time: Yes Critical Care Time: 37 minutes of critical care time which includes initial presentation with history physical labs x-rays reevaluation patient several occasions responsive therapy discuss with the patient family regarding findings discussion with Dr. Merrill regarding the findings he feels old charting available admission orders and documentation of the above Disposition Clinical Impression: Acute exacerbation of chronic obstructive airways disease, Adult respiratory distress syndrome, Lung cancer, Chronic anemia, Smoking Disposition: ADMITTED IP TO THIS HOSP Condition: Serious Referrals: Sara Carrasco MD [Primary Care Provider] - 1-2 days
[2018-12-28 21:40] LABS: Anisocytosis Slight; Basophils % (A) 0 %; Eosinophils # (A) 0.1 k/uL (0-0.7); Eosinophils % (A) 1 %; HCT 26.9 % (34.0-46.0); Hypochromasia Marked; Lymphocytes # (A) 0.2 k/uL (1.0-4.8); Lymphocytes % (A) 2 %; MCH 25.3 pg (25.0-35.0); MCHC 29.7 g/dL (31.0-37.0); MCV 85.4 fL (80.0-100.0); Mean Platelet Volume 7.3; Monocytes # (A) 0.2 k/uL (0-1.0); Monocytes % (A) 3 %; Neutrophils % (A) 92 %; Platelet Count 348 k/uL (150-450); RBC 3.15 m/uL (3.80-5.40); RDW 17.5 % (11.5-15.5); WBC 7.6 k/uL (3.8-10.6)
[2018-12-28 21:49] LABS: Partial Thromboplastin Time 23.4 sec (22.0-30.0); Prothrombin Time 10.3 sec (9.0-12.0)
[2018-12-28 21:52] LABS: ALT 25 U/L (9-52); AST 22 U/L (14-36); Albumin 3.1 g/dL (3.5-5.0); Alkaline Phosphatase 105 U/L (38-126); Anion Gap 9 mmol/L; Blood Urea Nitrogen 14 mg/dL (7-17); Calcium 8.9 mg/dL (8.4-10.2); Carbon Dioxide 26 mmol/L (22-30); Chloride 103 mmol/L (98-107); Glucose 137 mg/dL (74-99); Magnesium 1.9 mg/dL (1.6-2.3); Potassium 4.6 mmol/L (3.5-5.1); Sodium 138 mmol/L (137-145); Total Bilirubin 0.4 mg/dL (0.2-1.3); Total Protein 6.2 g/dL (6.3-8.2)
[2018-12-28 21:58] LABS: Creatine Kinase 38 U/L (30-135)
[2018-12-28 22:11] LABS: Creatine Kinase MB <0.2 ng/mL (0.0-2.4); Troponin I 0.013 ng/mL (0.000-0.034)
--- NOTE | 2018-12-28 22:15 | XR ---
EXAMINATION TYPE: XR chest 2V DATE OF EXAM: 12/28/2018 COMPARISON: 11/18/2018 HISTORY: Lung cancer. Short of breath. TECHNIQUE: Frontal and lateral views of the chest are obtained. FINDINGS: There is 7 cm area of consolidation in the lateral right upper lobe. There is some cavitat ion with fluid level. Heart size is normal. There is mild pleural thickening at both lung apices. The re is no heart failure. There is no pleural effusion. There is 70% anterior wedging of T12 vertebra w ith thoracolumbar kyphotic deformity. There is osteopenia. There is L2 anterior wedging of 25%. IMPRESSION: Cavitating infiltrate in the right upper lobe unchanged compared to old exam and consist ent with necrotic tumor. Lung abscess is not entirely excluded. Mild pleural scarring. No heart failure. Slight progression of T12 compression fracture compared to o ld exam.
[2018-12-28] MEDS ORDERED: MAGNESIUM SULFATE-D5W PMX 1 GM in DEXTROSE/WATER 1 100ML.BAG IVPB ONE (22:46)
[2018-12-28] MEDS ORDERED: HYDROcodone/APAP 5-325MG 1 EACH TAB PO PRN (22:56)
--- NOTE | 2018-12-28 22:58 | ED ---
Medical Decision Making - Lab Data Result diagrams: 12/28/18 21:22 12/28/18 21:22 Lab Results 12/28/18 12/28/18 12/28/18 Range/Units 20:55 21:22 21:22 WBC 7.6 (3.8-10.6) k/uL RBC 3.15 L (3.80-5.40) m/uL Hgb 8.0 L (11.4-16.0) gm/dL Hct 26.9 L (34.0-46.0) % MCV 85.4 (80.0-100.0) fL MCH 25.3 (25.0-35.0) pg MCHC 29.7 L (31.0-37.0) g/dL RDW 17.5 H (11.5-15.5) % Plt Count 348 (150-450) k/uL Neutrophils % 92 % Lymphocytes % 2 % Monocytes % 3 % Eosinophils % 1 % Basophils % 0 % Neutrophils # 7.0 (1.3-7.7) k/uL Lymphocytes # 0.2 L (1.0-4.8) k/uL Monocytes # 0.2 (0-1.0) k/uL Eosinophils # 0.1 (0-0.7) k/uL Basophils # 0.0 (0-0.2) k/uL Hypochromasia Marked Anisocytosis Slight PT (9.0-12.0) sec INR (<1.2) APTT (22.0-30.0) sec Sodium (137-145) mmol/L Potassium (3.5-5.1) mmol/L Chloride (98-107) mmol/L Carbon Dioxide (22-30) mmol/L Anion Gap mmol/L BUN (7-17) mg/dL Creatinine (0.52-1.04) mg/dL Est GFR (CKD-EPI)AfAm (>60 ml/min/1.73 sqM) Est GFR (CKD-EPI)NonAf (>60 ml/min/1.73 sqM) Glucose (74-99) mg/dL Plasma Lactic Acid Markus (0.7-2.0) mmol/L Calcium (8.4-10.2) mg/dL Magnesium (1.6-2.3) mg/dL Total Bilirubin (0.2-1.3) mg/dL AST (14-36) U/L ALT (9-52) U/L Alkaline Phosphatase (38-126) U/L Total Creatine Kinase 38 (30-135) U/L CK-MB (CK-2) <0.2 (0.0-2.4) ng/mL CK-MB (CK-2) Rel Index Troponin I 0.013 (0.000-0.034) ng/mL NT-Pro-B Natriuret Pep pg/mL Total Protein (6.3-8.2) g/dL Albumin (3.5-5.0) g/dL Influenza Type A RNA Not Detected (Not Detectd) Influenza Type B (PCR) Not Detected (Not Detectd) 12/28/18 12/28/18 12/28/18 Range/Units 21:22 21:22 21:22 WBC (3.8-10.6) k/uL RBC (3.80-5.40) m/uL Hgb (11.4-16.0) gm/dL Hct (34.0-46.0) % MCV (80.0-100.0) fL MCH (25.0-35.0) pg MCHC (31.0-37.0) g/dL RDW (11.5-15.5) % Plt Count (150-450) k/uL Neutrophils % % Lymphocytes % % Monocytes % % Eosinophils % % Basophils % % Neutrophils # (1.3-7.7) k/uL Lymphocytes # (1.0-4.8) k/uL Monocytes # (0-1.0) k/uL Eosinophils # (0-0.7) k/uL Basophils # (0-0.2) k/uL Hypochromasia Anisocytosis PT 10.3 (9.0-12.0) sec INR 1.0 (<1.2) APTT 23.4 (22.0-30.0) sec Sodium 138 (137-145) mmol/L Potassium 4.6 (3.5-5.1) mmol/L Chloride 103 (98-107) mmol/L Carbon Dioxide 26 (22-30) mmol/L Anion Gap 9 mmol/L BUN 14 (7-17) mg/dL Creatinine 0.46 L (0.52-1.04) mg/dL Est GFR (CKD-EPI)AfAm >90 (>60 ml/min/1.73 sqM) Est GFR (CKD-EPI)NonAf >90 (>60 ml/min/1.73 sqM) Glucose 137 H (74-99) mg/dL Plasma Lactic Acid Markus (0.7-2.0) mmol/L Calcium 8.9 (8.4-10.2) mg/dL Magnesium 1.9 (1.6-2.3) mg/dL Total Bilirubin 0.4 (0.2-1.3) mg/dL AST 22 (14-36) U/L ALT 25 (9-52) U/L Alkaline Phosphatase 105 (38-126) U/L Total Creatine Kinase (30-135) U/L CK-MB (CK-2) (0.0-2.4) ng/mL CK-MB (CK-2) Rel Index Troponin I (0.000-0.034) ng/mL NT-Pro-B Natriuret Pep 773 pg/mL Total Protein 6.2 L (6.3-8.2) g/dL Albumin 3.1 L (3.5-5.0) g/dL Influenza Type A RNA (Not Detectd) Influenza Type B (PCR) (Not Detectd) 12/28/18 Range/Units 21:22 WBC (3.8-10.6) k/uL RBC (3.80-5.40) m/uL Hgb (11.4-16.0) gm/dL Hct (34.0-46.0) % MCV (80.0-100.0) fL MCH (25.0-35.0) pg MCHC (31.0-37.0) g/dL RDW (11.5-15.5) % Plt Count (150-450) k/uL Neutrophils % % Lymphocytes % % Monocytes % % Eosinophils % % Basophils % % Neutrophils # (1.3-7.7) k/uL Lymphocytes # (1.0-4.8) k/uL Monocytes # (0-1.0) k/uL Eosinophils # (0-0.7) k/uL Basophils # (0-0.2) k/uL Hypochromasia Anisocytosis PT (9.0-12.0) sec INR (<1.2) APTT (22.0-30.0) sec Sodium (137-145) mmol/L Potassium (3.5-5.1) mmol/L Chloride (98-107) mmol/L Carbon Dioxide (22-30) mmol/L Anion Gap mmol/L BUN (7-17) mg/dL Creatinine (0.52-1.04) mg/dL Est GFR (CKD-EPI)AfAm (>60 ml/min/1.73 sqM) Est GFR (CKD-EPI)NonAf (>60 ml/min/1.73 sqM) Glucose (74-99) mg/dL Plasma Lactic Acid Markus 0.7 (0.7-2.0) mmol/L Calcium (8.4-10.2) mg/dL Magnesium (1.6-2.3) mg/dL Total Bilirubin (0.2-1.3) mg/dL AST (14-36) U/L ALT (9-52) U/L Alkaline Phosphatase (38-126) U/L Total Creatine Kinase (30-135) U/L CK-MB (CK-2) (0.0-2.4) ng/mL CK-MB (CK-2) Rel Index Troponin I (0.000-0.034) ng/mL NT-Pro-B Natriuret Pep pg/mL Total Protein (6.3-8.2) g/dL Albumin (3.5-5.0) g/dL Influenza Type A RNA (Not Detectd) Influenza Type B (PCR) (Not Detectd) Disposition Clinical Impression: Acute exacerbation of chronic obstructive airways disease, Adult respiratory distress syndrome, Lung cancer, Chronic anemia, Smoking, Tachycardia Disposition: ADMITTED IP TO THIS HOSP Condition: Serious Referrals: Sara Carrasco MD [Primary Care Provider] - 1-2 days
[2018-12-28] MEDS: IPRATROPIUM-ALBUTEROL 3 ML NEB INHALATION SCH (23:49)
[2018-12-29] MEDS: SODIUM CHLORIDE 0.9% 1,000 ML IV SCH ×3 (00:46→22:19)
--- NOTE | 2018-12-29 00:51 | P.HPIM ---
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 Patient claims that since discharge last time from the hospital she never recovered and T8 to have cough and shortness of breath which has been progressive however since yesterday she noticed severe dyspnea and wheezing along with worsening of her cough productive of whitish sputum she denies any hemoptysis. She has been losing significant amount of weight since she has been started on immunotherapy she reports losing over 40 pounds over the past few months. Patient also reports drenching sweating at night along with subjective fevers and chills, anemia, and significant weight loss. Patient denies any GI bleeding. She reports some component of pleuritic chest pain sometimes with severe cough. Patient doesn't recall being on any antibiotics after discharge from the hospital last time. She is currently receiving immunotherapy every 2 weeks and she was scheduled to receive a dose today however she was very sick and decided to come to the hospital. She otherwise denies any nausea vomiting abdominal pain changes in her bowel or urinary habits. X-ray of the chest showed cavitary lesion over the right upper lobe unchanged from last time. Patient cannot recall exact type of ALLERGY to penicillin and beta lactam. Patient improved her breathing after receiving breathing treatments in the ER however she was still feeling weak and dyspnea upon minimal activity Review of Systems Pertinent positives as noted in HPI. All other systems were reviewed and are negative Past Medical History Past Medical History: Cancer, COPD, Hyperlipidemia, Osteoarthritis (OA), Respiratory Disorder Additional Past Medical History / Comment(s): - fracture ribs rt, emphysema, Lung cancer History of Any Multi-Drug Resistant Organisms: None Reported Past Surgical History: Breast Surgery, Tonsillectomy, Tubal Ligation Additional Past Surgical History / Comment(s): LEFT MASTECOMY benign . LEFT FOOT FX .LEFT RIBS FX. LEFT TOES FX Past Anesthesia/Blood Transfusion Reactions: No Reported Reaction Past Psychological History: No Psychological Hx Reported Smoking Status: Current every day smoker Past Alcohol Use History: None Reported Past Drug Use History: None Reported - Past Family History Mother Family Medical History: Cancer Additional Family Medical History / Comment(s): breast Father Family Medical History: Cancer Medications and Allergies Home Medications Medication Instructions Recorded Confirmed Type Lutein 20 mg PO DAILY 02/03/17 12/28/18 History Simvastatin [Zocor] 40 mg PO HS 02/03/17 12/28/18 History Albuterol Inhaler [Ventolin Hfa 2 puff INHALATION RT-Q6H PRN 11/01/17 12/28/18 History Inhaler] Calcium Carbonate [Calcium] 600 mg PO DAILY 11/01/17 12/28/18 History Cholecalciferol [Vitamin D3] 1,000 unit PO DAILY 11/01/17 12/28/18 History Loratadine [Claritin] 10 mg PO DAILY 11/01/17 12/28/18 History Hydrocodone/Acetaminophen [[place] 1 tab PO Q6HR PRN 01/27/18 12/28/18 History 5-325] Cyanocobalamin [Vitamin B-12] 500 mcg PO DAILY 12/28/18 12/28/18 History Fluticasone/Vilanterol [Breo 1 puff INHALATION RT-DAILY 12/28/18 12/28/18 History Ellipta 200-25 Mcg INH] Megestrol [Megace] 40 mg PO DAILY 12/28/18 12/28/18 History Allergies Allergy/AdvReac Type Severity Reaction Status Date / Time amoxicillin [From Augmentin] Allergy Unknown Verified 12/28/18 20:40 cefaclor [From Ceclor] Allergy Unknown Verified 12/28/18 20:40 clarithromycin [From Biaxin] Allergy Unknown Verified 12/28/18 20:40 clavulanic acid Allergy Unknown Verified 12/28/18 20:40 [From Augmentin] codeine AdvReac Nausea & Verified 12/28/18 20:40 Vomiting & Diarrhea Physical Exam Vitals: Vital Signs Temp Pulse Resp BP Pulse Ox 12/28/18 23:10 113 H 18 122/67 97 12/28/18 23:03 110 H 18 12/28/18 22:53 108 H 18 12/28/18 22:00 110 H 120/69 97 12/28/18 21:34 115 H 18 12/28/18 21:26 98.4 F 12/28/18 21:21 112 H 18 12/28/18 21:00 115 H 20 135/74 97 12/28/18 19:59 99.6 F 109 H 16 124/59 91 L Intake and Output 12/28/18 12/28/18 12/29/18 14:59 22:59 06:59 Other: Weight 37.195 kg Constitutional: No acute distress, conversant, pleasant, patient able talking full sentences currently on oxygen through nasal cannula, patient is cachectic Eyes: Anicteric sclerae, moist conjunctiva, no lid-lag Pupils equal round reactive to light ENMT: NC/AT Oropharynx clear, no erythema, exudates Neck: Supple, FROM, no masses, or JVD No carotid bruits No thyromegaly Lungs: Good breath sounds throughout, scattered rhonchi Clear to percussion Patient using accessory muscles of respiration Cardiovascular: Heart tachycardia normal S1 and S2, No murmurs, gallops, or rubs No peripheral edema Abdominal: Soft Nontender, no guarding, rebound or rigidity Abdomen moving with respiration Normoactive bowel sounds No hepatomegaly, No splenomegaly No palpable mass No abdominal wall hernia noted Skin: Normal temperature, tone, texture, turgor No induration No subcutaneous nodules No rash, lesions No ulcers Extremities: No digital cyanosis No clubbing Pedal pulses intact and symmetrical Radial pulses intact and symmetrical No calf tenderness Psychiatric: Alert and oriented to person, place and time Appropriate affect fair judgment Neuro Muscles Strength 4/5 in all 4 extremities Sensation to light touch grossly present throughout Cranial nerves II-XII grossly intact No focal sensory deficits Lymphatics: no palpable cervical or supraclavicular , or inguinal lymph nodes Results CBC & Chem 7: 12/28/18 21:22 12/28/18 21:22 Labs: Abnormal Lab Results - Last 24 Hours (Table) 12/28/18 12/28/18 Range/Units 21:22 21:22 RBC 3.15 L (3.80-5.40) m/uL Hgb 8.0 L (11.4-16.0) gm/dL Hct 26.9 L (34.0-46.0) % MCHC 29.7 L (31.0-37.0) g/dL RDW 17.5 H (11.5-15.5) % Lymphocytes # 0.2 L (1.0-4.8) k/uL Creatinine 0.46 L (0.52-1.04) mg/dL Glucose 137 H (74-99) mg/dL Total Protein 6.2 L (6.3-8.2) g/dL Albumin 3.1 L (3.5-5.0) g/dL Assessment and Plan Assessment: 78-year-old female with history of stage III lung cancer and chronic bronchitis admitted as inpatient with anticipated length of stay more than 48 hours due to acute hypoxic respiratory failure and exacerbation of chronic bronchitis. Upon further imaging patient suspected to have lung abscess for which antibiotics were initiated. Patient also has failure to thrive with significant weight loss. Plan: Acute hypoxic respiratory failure, patient uses nighttime oxygen at home 2 L nasal cannula Acute exacerbation of chronic bronchitis Suspected lung abscess Stage III lung cancer squamous cell carcinoma currently on immunotherapy failed chemotherapy Cachexia and failure to thrive Anemia of chronic disease currently stable patient denies any bleeding DVT prophylaxis heparin subcu 3 times a day Plan Check blood cultures and sputum cultures Supplemental oxygen as needed IV fluid hydration Patient initiated on clindamycin (due to ALLERGY to penicillin, cephalosporin, and beta-lactam however patient is not sure of type of ALLERGY she claims to be forgetful and last time she had these antibiotics were years ago. Upon reviewing her medical records I wasn't able to identify what antibiotics she received in October for obstructive pneumonia she was admitted. Patient claims that when she was discharged she did not receive any antibiotics) DuoNeb's when necessary Continue with Megace encourage by mouth intake Symptomatic treatment for fevers Check computed tomography scan of the chest with and without contrast to better visualize any evidence of lung abscess If lung abscess diagnosis is confirmed then consider ID consultation Preformed a thorough record review from recent hospitalization patient was hospitalized in October diagnosed with obstructive pneumonia it's unclear to me what antibiotic was used at that time, patient also has history of stage III squamous cell lung cancer failed chemotherapy currently on immunotherapy Surrogate decision-maker: Patient granddaughter Judie CODE STATUS: No code Discussed with: Patient, ER, RN Anticipated discharge: 48-[address]: Pending clinical course A total of 60 minutes was spent on the care of this complex patient more than 50 % of the time was spent in counseling and care coordination.
[2018-12-29] MEDS: CLINDAMYCIN 600 MG in DEXTROSE 5% IN WATER 50 ML IVPB SCH ×6 (01:26→15:22)
[2018-12-29] MEDS: IPRATROPIUM-ALBUTEROL 3 ML NEB INHALATION SCH ×5 (02:54→19:38)
[2018-12-29] MEDS: methylPREDNISolone SOD SUCCI 125 MG/2 ML VIAL IV SCH ×4 (05:29→22:16)
[2018-12-29] MEDS: HEPARIN SODIUM,PORCINE 5,000 UNIT/ML 1 ML VIAL SQ SCH ×3 (07:53→22:15)
[2018-12-29] MEDS: CYANOCOBALAMIN 500 MCG TAB PO SCH (07:54)
[2018-12-29] MEDS: LORATADINE 10 MG TAB PO SCH (07:54)
[2018-12-29] MEDS: CHOLECALCIFEROL 1,000 UNIT TAB PO SCH (07:54)
[2018-12-29] MEDS: CALCIUM CARBONATE 500 MG CHEWABLE PO SCH (07:54)
[2018-12-29] MEDS ORDERED: SYMBICORT 160-4.5 MCG INHALER INHALATION SCH (08:00)
[2018-12-29 08:18] LABS: Anisocytosis Slight; Basophils % (A) 0 %; Eosinophils % (A) 1 %; HCT 27.2 % (34.0-46.0); HGB 8.3 gm/dL (11.4-16.0); Hypochromasia Marked; Lymphocytes # (A) 0.2 k/uL (1.0-4.8); Lymphocytes % (A) 5 %; MCH 26.5 pg (25.0-35.0); MCHC 30.5 g/dL (31.0-37.0); MCV 86.8 fL (80.0-100.0); Monocytes # (A) 0.1 k/uL (0-1.0); Monocytes % (A) 1 %; Neutrophils # (A) 4.3 k/uL (1.3-7.7); Neutrophils % (A) 93 %; Platelet Count 336 k/uL (150-450); RBC 3.13 m/uL (3.80-5.40); WBC 4.6 k/uL (3.8-10.6)
[2018-12-29 08:41] LABS: ALT 22 U/L (9-52); AST 18 U/L (14-36); Albumin 3.1 g/dL (3.5-5.0); Alkaline Phosphatase 98 U/L (38-126); Anion Gap 7 mmol/L; Blood Urea Nitrogen 13 mg/dL (7-17); Calcium 8.6 mg/dL (8.4-10.2); Carbon Dioxide 27 mmol/L (22-30); Chloride 106 mmol/L (98-107); Glucose 143 mg/dL (74-99); Potassium 4.7 mmol/L (3.5-5.1); Sodium 140 mmol/L (137-145); Total Bilirubin 0.3 mg/dL (0.2-1.3); Total Protein 5.9 g/dL (6.3-8.2)
[2018-12-29] MEDS ORDERED: NON-FORMULARY DRUG (Lutein [Lutein] 20 MG) PO SCH (09:00)
--- NOTE | 2018-12-29 09:56 | CT ---
EXAMINATION TYPE: CT chest w con DATE OF EXAM: 12/29/2018 COMPARISON: CTA chest November 18, 2018 and older CTs. Most recent PET/CT September 02, 2018. HISTORY: Abscess, history of lung cancer diagnosed October 2017. CT DLP: 152 mGycm. Automated Exposure Control for Dose Reduction was Utilized. TECHNIQUE: CT scan of the thorax is performed following with IV Contrast, patient injected with 80 m L of Isovue 300. FINDINGS: LUNGS: Background moderate to advanced underlying emphysematous change remains present. There is pers istent thick walled cavitary lesion in the periphery of the right upper lobe at area of original neop lasm with surrounding heterogeneous hypodensity that has more peripheral rim enhancement. Chest wall involvement with rib changes are redemonstrated. Persistent right-sided volume loss with mediastinal shift is seen. Overall area of involvement is roughly 6.5 x 5.1 cm transversely axial image 19 not si gnificantly changed from most recent study. Left lung remains clear. No pleural effusion is noted geoffrey aterally. MEDIASTINUM: There is persistent suspicious pericarinal lymph node measuring 1.6 x 0.8 cm current lee dy axial image 23 fairly stable from most recent prior CT. No cardiomegaly or pericardial effusion is seen. Coronary artery calcification is redemonstrated which is noted marker for coronary artery d isease. Heterogeneous multinodular thyroid gland is again seen. OTHER: Osseous structures are demineralized. Underlying scoliosis is redemonstrated. Advanced kori conor fracture at T12 level is again seen. There is moderate plaque in the aorta with tortuous course to the visualized abdominal aorta redemonstrated. Calcification right hepatic dome axial image 51 is redemonstrated. IMPRESSION: Overall stable findings, cavitary right upper lobe malignancy with chest wall invasion an d active hypermetabolic component centrally remains present and not significant changed in size or ap pearance from most recent CT. No new mass or adenopathy. No new acute pulmonary process identified.
[2018-12-29] MEDS: MEGESTROL 40 MG TAB PO SCH (09:59)
[2018-12-29 10:37] VITALS: BMI 14.5
--- NOTE | 2018-12-29 14:21 | CONS ---
CONSULTATION PULMONARY CRITICAL CARE CONSULTATION DATE OF CONSULTATION: December 29, 2018. This is a 78-year-old female with history of advanced lung cancer, stage III, who apparently still smokes cigarettes on a daily basis and who is getting ongoing chemotherapy every couple weeks by her oncologist. She apparently presented to the emergency department complaining of being short of breath for a couple days prior to admission. She has got chest tightness and chest congestion. She is coughing and producing white phlegm. She also had low-grade temperature elevation. She has severe exertional dyspnea. Her primary is Dr. Carrasco. She has never seen a lung doctor. She apparently was diagnosed back in 2017 by fine-needle aspiration done by Interventional Radiology. She does see Dr. Stevens and Dr. Carrasco. We have never seen her and she apparently has never been seen by a lung doctor in the past. She likely has significant chronic obstructive pulmonary disease based on many, many years of tobacco use. She has been smoking probably for 60 years or so. Anyway, she is feeling a bit better today than she did yesterday. Her chest x-ray was evaluated. She has a mass in the right upper chest with an air-fluid level. This is a chronic abnormality. HOME MEDICATIONS: Her home medications include lutein, Zocor, Ventolin inhaler, calcium, vitamin D3, Claritin, [employer], vitamin B12, Breo and Megace. ALLERGIES: Allergies are numerous and include AMOXICILLIN, CEFACLOR, CLARITHROMYCIN, CLAVULANIC ACID, and CODEINE. MEDICAL HISTORY: Medical history includes lung cancer, stage III, COPD, hyperlipidemia, osteoarthritis, right rib fracture. PAST SURGICAL HISTORY: Past surgical history includes breast surgery, tonsillectomy, tubal ligation. She has also had surgery on her feet. SOCIAL HISTORY: Social history is positive for ongoing tobacco use on a daily basis. She continues to smoke despite the diagnosis of cancer. She denies any alcohol or illicit drug use. FAMILY HISTORY: Family history is positive for breast cancer. REVIEW OF SYSTEMS: CONSTITUTIONAL: Fever. NEUROLOGIC: Negative. HEENT: Negative. CARDIOVASCULAR: Negative. PULMONARY: Shortness of breath, chest congestion, coughing, wheezing and phlegm production. GI: Negative. : Negative. RHEUMATOLOGIC: Negative. IMMUNOLOGIC: Negative. ENDOCRINOLOGIC: Negative. DERMATOLOGIC: Negative. PHYSICAL EXAMINATION: Current vital signs are reviewed. Temperature is 97.7, heart rate 94, respiratory rate 16, blood pressure 113/64, mean 80, two liter saturation 98%. Appears in no acute distress. HEENT examination is grossly unremarkable. Mucous membranes are moist. Nasal O2 was noted. Teeth are in poor repair. NECK: Supple. Full range of motion. No adenopathy or thyromegaly. Neck veins are flat. Cardiovascular examination reveals regular rhythm and rate. S1, S2 normal. No S3, S4, or murmur. Lungs reveal coarse inspiratory and expiratory wheezes and rhonchi. There is prolongation on forced maneuver. The patient wheezes and coughs on forced maneuver. Adventitious lung sounds are more prominent on forced maneuver. Breath sounds equal bilaterally. ABDOMEN: Soft. Bowel sounds are heard. Extremities are intact. No cyanosis, clubbing, or edema. Skin without rash. Neurologic examination is brief, but nonfocal. The chest x-ray shows a cavitating infiltrate in the right upper lobe, which is unchanged compared to prior examination on November 18, 2018. It is consistent with either a cavitating lung cancer or lung abscess. There is also T12 compression fracture. Chest CT dated December 29 reveals stable findings of a cavitary lesion right upper lobe with chest wall invasion and an active hypermetabolic component centrally. There is no new mass or adenopathy. Labs are reviewed. White count 4 6, hemoglobin 8.3, hematocrit 27.2, platelet count 336,000. PT, INR, PTT normal. Sodium, potassium, chloride, CO2 normal. Anion gap is 7. BUN and creatinine were 13 and 0.36. Influenza studies are negative. Albumin 3.1. N terminal proBNP 773 and troponin is 0.013. Medications are reviewed. From the pulmonary standpoint, she is on Symbicort, clindamycin, albuterol and Atrovent updrafts, Solu-Medrol. ASSESSMENT: 1. Cavitating lung cancer right upper lobe favored over lung abscess, consistent with the patient's primary diagnosis of squamous cell carcinoma, stage III. 2. Ongoing tobacco use and probable significant/severe chronic obstructive pulmonary disease. 3. Chronic hypoxemic respiratory failure with nocturnal oxygen use. 4. Hyperlipidemia. 5. Vitamin D deficiency. 6. Environmental allergies. 7. Anorexia/cachexia syndrome of malignancy. 8. Osteoarthritis. 9. History of rib fracture. PLAN: The patient's medications are reviewed. The patient is currently on appropriate medications. We will continue to follow. The patient should see a check out clerk post discharge for better staging of her COPD and recommendations in regards to treatment. Additional recommendations and suggestions are forthcoming. Prognosis is poor. I do scholarship counselor the patient about the importance of smoking cessation. No additional recommendations are made. MMSHREEL / DAVID: [id number] /
--- NOTE | 2018-12-29 14:47 | P.PN ---
Subjective Progress Note Date: 12/29/18 The patient is a 78-year-old female with a PMH of stage III lung CA, on immunotherapy, COPD, and hyperlipidemia presented to the ED due to worsening shortness of breath and cough. The patient complained of pleuritic chest pain, progressive dyspnea with wheezing and cough productive of white phlegm. She also endorsed unintentional 40 pound weight loss over the past few months along with night sweats and chills. Of note the patient was previously admitted to the hospital on 11/18/2018 for postobstructive pneumonia and notes that she doesn't recall being discharged on any antibiotics. The patient is presently receiving immunotherapy every 2 weeks and was scheduled to receive a dose yesterday though was feeling sick and decided to come to the hospital instead. In the ED, the patient underwent a CT chest which showed a cavitary right upper lobe malignancy with chest wall invasion. The patient was admitted to the medicine service for hypoxemic respiratory failure. The patient was seen and examined at the bedside. She notes that her breathing has improved significantly since coming into the hospital. She denied any further episodes of chest pain, fever, chills, nausea, or vomiting. Objective - Vital Signs Vital signs: Vital Signs Temp 97.7 F 12/29/18 12:19 Pulse 100 12/29/18 12:19 Resp 16 12/29/18 12:19 BP 113/64 12/29/18 12:19 Pulse Ox 98 12/29/18 12:19 Intake & Output 12/28/18 12/29/18 12/29/18 18:59 06:59 18:59 Intake Total 810 1460 Balance 810 1460 Weight 37.195 kg 37.195 kg Intake: Intake, IV Titration 690 910 Amount Clindamycin 600 mg In 50 100 Dextrose 5% in Water 50 ml @ 50 mls/hr IVPB Q8HR [facility] Rx#:[id number] Sodium Chloride 0.9% 1, 640 810 000 ml @ 80 mls/hr IV . [id number] [facility] Rx#:[id number] Oral 120 550 Other: Voiding Method Toilet Toilet # Voids 2 3 - Exam General: Elderly, frail female, in no acute distress HEENT: NC/AT, anicteric sclerae, moist conjunctiva Cardiovascular: S1/S2 wnl, no murmurs, rubs, or gallops Lungs: Mild scattered coarse breath sounds, normal respiratory effort, no accessory muscle use Abdominal: Soft, non-tender, non-distended, no guarding, rebound, or rigidity Skin: Warm, dry Extremities: No edema or contractures Psychiatric: Alert and oriented to person, place and time, appropriate affect Neuro: CN II-XII grossly intact, Strength 4/5 in all 4 extremities, Speech intact, Sensation to light touch grossly intact throughout - Labs CBC & Chem 7: 12/29/18 07:11 12/29/18 07:11 Labs: Abnormal Lab Results - Last 24 Hours (Table) 12/28/18 12/28/18 12/29/18 Range/Units 21:22 21:22 07:11 RBC 3.15 L 3.13 L (3.80-5.40) m/uL Hgb 8.0 L 8.3 L (11.4-16.0) gm/dL Hct 26.9 L 27.2 L (34.0-46.0) % MCHC 29.7 L 30.5 L (31.0-37.0) g/dL RDW 17.5 H 17.0 H (11.5-15.5) % Lymphocytes # 0.2 L 0.2 L (1.0-4.8) k/uL Creatinine 0.46 L (0.52-1.04) mg/dL Glucose 137 H (74-99) mg/dL Total Protein 6.2 L (6.3-8.2) g/dL Albumin 3.1 L (3.5-5.0) g/dL 12/29/18 Range/Units 07:11 RBC (3.80-5.40) m/uL Hgb (11.4-16.0) gm/dL Hct (34.0-46.0) % MCHC (31.0-37.0) g/dL RDW (11.5-15.5) % Lymphocytes # (1.0-4.8) k/uL Creatinine 0.36 L (0.52-1.04) mg/dL Glucose 143 H (74-99) mg/dL Total Protein 5.9 L (6.3-8.2) g/dL Albumin 3.1 L (3.5-5.0) g/dL Assessment and Plan Plan: Acute hypoxic respiratory failure, secondary to exacerbation of chronic bronchitis -Continue with supplemental oxygen -Computed tomography scan showing cavitary right upper lobe malignancy -Pulmonary consulted, awaiting recommendations -Continue with Solu-Medrol 60 mg every 6 hourly and DuoNeb's Stage III lung CVA, on immunotherapy -Oncology consulted, awaiting recommendations Failure to thrive -Dietary referral Anemia of chronic disease -Hemoglobin stable DVT//GI prophylaxis -Heparin -No indication for GI prophylaxis Discussed with: Patient, daughter Anticipated discharge date: 01/01/[address]: Home A total of 35 minutes was spent on the care of this complex patient more than 50 % of the time was spent in counseling and care coordination.
--- NOTE | 2018-12-29 15:07 | P.CONS ---
History of Present Illness - Reason for Consult Consult date: 12/29/18 Squamous Cell carcinoma of the Lung Requesting physician: Pravin Muhammad - Chief Complaint Shortness of breath and weight loss - History of Present Illness Ms. Almendarez is a very nice lady who is known to Dr. 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 Treated initially with chemotherapy and radiation with good response. CT scan in August of 2018 revealed progressive disease in her lung. In September 2018 she began immune therapy with Opdivo. She was recently admitted for possible postobstructive pneumonia and COPD exacerbation. She was treated with one dose of solumedrol, antibiotics and supportive care, then improved and discharged home. Since this stay she states she has continued to feel more shortness of breath over the past two weeks. Review of Systems A 14 point review of systems assessed and completed and all negative except HPI. Past Medical History Past Medical History: Cancer, COPD, Hyperlipidemia, Osteoarthritis (OA), Respiratory Disorder Additional Past Medical History / Comment(s): - fracture ribs rt, emphysema, Lung cancer History of Any Multi-Drug Resistant Organisms: None Reported Past Surgical History: Breast Surgery, Tonsillectomy, Tubal Ligation Additional Past Surgical History / Comment(s): LEFT MASTECOMY benign . LEFT FOOT FX .LEFT RIBS FX. LEFT TOES FX Past Anesthesia/Blood Transfusion Reactions: No Reported Reaction Past Psychological History: No Psychological Hx Reported Smoking Status: Current every day smoker Past Alcohol Use History: None Reported Past Drug Use History: None Reported - Past Family History Mother Family Medical History: Cancer Additional Family Medical History / Comment(s): breast Father Family Medical History: Cancer Medications and Allergies Home Medications Medication Instructions Recorded Confirmed Type Lutein 20 mg PO DAILY 02/03/17 12/28/18 History Simvastatin [Zocor] 40 mg PO HS 02/03/17 12/28/18 History Albuterol Inhaler [Ventolin Hfa 2 puff INHALATION RT-Q6H PRN 11/01/17 12/28/18 History Inhaler] Calcium Carbonate [Calcium] 600 mg PO DAILY 11/01/17 12/28/18 History Cholecalciferol [Vitamin D3] 1,000 unit PO DAILY 11/01/17 12/28/18 History Loratadine [Claritin] 10 mg PO DAILY 11/01/17 12/28/18 History Hydrocodone/Acetaminophen [[place] 1 tab PO Q6HR PRN 01/27/18 12/28/18 History 5-325] Cyanocobalamin [Vitamin B-12] 500 mcg PO DAILY 12/28/18 12/28/18 History Fluticasone/Vilanterol [Breo 1 puff INHALATION RT-DAILY 12/28/18 12/28/18 History Ellipta 200-25 Mcg INH] Megestrol [Megace] 40 mg PO DAILY 12/28/18 12/28/18 History Allergies Allergy/AdvReac Type Severity Reaction Status Date / Time amoxicillin [From Augmentin] Allergy Diarrhea Verified 12/29/18 00:47 cefaclor [From Ceclor] Allergy Diarrhea Verified 12/29/18 00:47 clarithromycin [From Biaxin] Allergy Diarrhea Verified 12/29/18 00:47 clavulanic acid Allergy Diarrhea Verified 12/29/18 00:47 [From Augmentin] codeine AdvReac Nausea & Verified 12/28/18 20:40 Vomiting & Diarrhea Physical Exam Vitals: Vital Signs Temp Pulse Pulse Resp BP BP Pulse Ox 12/29/18 12:19 97.7 F 100 16 113/64 98 12/29/18 11:30 94 12/29/18 11:13 98 12/29/18 08:00 104 H 12/29/18 07:43 100 12/29/18 07:29 104 H 12/29/18 04:33 97.9 F 82 14 99/64 99 12/29/18 03:06 100 12/29/18 02:54 100 12/28/18 23:10 113 H 18 122/67 97 12/28/18 23:03 110 H 18 12/28/18 22:53 108 H 18 12/28/18 22:00 110 H 120/69 97 12/28/18 21:34 115 H 18 12/28/18 21:26 98.4 F 12/28/18 21:21 112 H 18 12/28/18 21:00 115 H 20 135/74 97 12/28/18 19:59 99.6 F 109 H 16 124/59 91 L Intake and Output 12/28/18 12/29/18 12/29/18 22:59 06:59 14:59 Intake Total 810 1460 Balance 810 1460 Intake: Intake, IV Titration 690 910 Amount Clindamycin 600 mg In 50 100 Dextrose 5% in Water 50 ml @ 50 mls/hr IVPB Q8HR [facility] Rx#:[id number] Sodium Chloride 0.9% 1, 640 810 000 ml @ 80 mls/hr IV . [id number] [facility] Rx#:[id number] Oral 120 550 Other: Voiding Method Toilet Toilet # Voids 2 3 Weight 37.195 kg 37.195 kg General: In no acute distress. HEENT: Mucosa moist. Neck: Neck supple. Lymph: No cervical/supraclavicular LAD. Lungs: CTA-B without wheezing or rhonchi. Heart: RRR. No LE edema. Abdomen: Soft, nontender, nondistended, with positive bowel sounds. MSK: 4/4 strength in all 4 extremities. Neuro: Alert and oriented 3. No obvious gross neurologic deficits. Skin: No jaundice or rash. Psych: Appropriate affect. Results CBC & Chem 7: 12/29/18 07:11 12/29/18 07:11 Labs: Abnormal Lab Results - Last 24 Hours (Table) 12/28/18 12/28/18 12/29/18 Range/Units 21:22 21:22 07:11 RBC 3.15 L 3.13 L (3.80-5.40) m/uL Hgb 8.0 L 8.3 L (11.4-16.0) gm/dL Hct 26.9 L 27.2 L (34.0-46.0) % MCHC 29.7 L 30.5 L (31.0-37.0) g/dL RDW 17.5 H 17.0 H (11.5-15.5) % Lymphocytes # 0.2 L 0.2 L (1.0-4.8) k/uL Creatinine 0.46 L (0.52-1.04) mg/dL Glucose 137 H (74-99) mg/dL Total Protein 6.2 L (6.3-8.2) g/dL Albumin 3.1 L (3.5-5.0) g/dL 12/29/18 Range/Units 07:11 RBC (3.80-5.40) m/uL Hgb (11.4-16.0) gm/dL Hct (34.0-46.0) % MCHC (31.0-37.0) g/dL RDW (11.5-15.5) % Lymphocytes # (1.0-4.8) k/uL Creatinine 0.36 L (0.52-1.04) mg/dL Glucose 143 H (74-99) mg/dL Total Protein 5.9 L (6.3-8.2) g/dL Albumin 3.1 L (3.5-5.0) g/dL Assessment and Plan Plan: Chest x-ray: report reviewed CT scan - chest: report reviewed Assessment and Plan Assessment: 1. Squamous cell lung cancer - On immunotherapy, Last Opdivo on 12/14/18 (Status post 6 cycles) 3. Dyspnea: - Progressive and worsening since last hospital stay and discharge - The CT did not show evidence of pneumonitis although this is a differential to consider as patient is on treatment with Opdivo, other differentials include possible post-obstructive pneumonia, possible COPD exacerbation, Plan: Ms. 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 Agree with treating a COPD exacerbation and postobstructive pneumonia. - Will Hold Opdivo until improvement in symptoms while patient is hospitalized. - Discussed with pt and she is agreeable to the plan. All questions answered. - ABX, Steroids, Pulmonary following Thank you for allowing us to participate in the care of this patient, will follow along with you. Physician Attestation: I have completed the full history and physical of this patient and agree with above dictation by Leah Thorne NP. Dictated as a scribe.
[2018-12-29] MEDS: BUDESONIDE 1 MG/2 ML NEBU INHALATION SCH (19:38)
[2018-12-29] MEDS: FORMOTEROL FUMARATE 20 MCG/2 ML NEBU INHALATION SCH (19:38)
[2018-12-29] MEDS: ATORVASTATIN 20 MG TAB PO SCH (22:15)
[2018-12-30] MEDS: IPRATROPIUM-ALBUTEROL 3 ML NEB INHALATION SCH ×6 (00:07→19:06)
[2018-12-30] MEDS: methylPREDNISolone SOD SUCCI 125 MG/2 ML VIAL IV SCH ×4 (05:25→23:58)
[2018-12-30] MEDS: LORATADINE 10 MG TAB PO SCH (07:41)
[2018-12-30] MEDS: CALCIUM CARBONATE 500 MG CHEWABLE PO SCH (07:41)
[2018-12-30] MEDS: CHOLECALCIFEROL 1,000 UNIT TAB PO SCH (07:41)
[2018-12-30] MEDS: HEPARIN SODIUM,PORCINE 5,000 UNIT/ML 1 ML VIAL SQ SCH ×3 (07:41→23:58)
[2018-12-30] MEDS: CYANOCOBALAMIN 500 MCG TAB PO SCH (07:41)
[2018-12-30] MEDS: MEGESTROL 40 MG TAB PO SCH (07:43)
[2018-12-30] MEDS: CLINDAMYCIN 600 MG in DEXTROSE 5% IN WATER 50 ML IVPB SCH ×4 (07:44)
[2018-12-30] MEDS: FORMOTEROL FUMARATE 20 MCG/2 ML NEBU INHALATION SCH ×2 (08:24→19:06)
[2018-12-30] MEDS: BUDESONIDE 1 MG/2 ML NEBU INHALATION SCH ×2 (08:24→19:06)
[2018-12-30] MEDS: SODIUM CHLORIDE 0.9% 1,000 ML IV SCH ×2 (12:35→23:59)
--- NOTE | 2018-12-30 12:50 | P.PN ---
Subjective Progress Note Date: 12/30/18 Principal diagnosis: Acute exacerbation of chronic hypoxemic respiratory failure secondary to severe chronic obstructive pulmonary disease. The patient is seen today 12/30/2018 in follow-up on the regular medical floor. She is currently awake and alert in no acute distress. Resting quite comfortably in bed. She states she is breathing better today compared to yesterday. Still not back to her baseline. Maintaining good O2 saturations in the upper 90s on 2 L/m per nasal cannula. She's been afebrile. Hemodynamically stable. Blood culture reveals no growth. She is maintained on DuoNeb inhalations, Pulmicort and Perforomist inhalations, IV Solu-Medrol. Antibiotics in the form of clindamycin. Objective - Vital Signs Vital signs: Vital Signs Temp 97.3 F L 12/30/18 11:58 Pulse 84 12/30/18 12:22 Resp 16 12/30/18 11:58 BP 137/63 12/30/18 11:58 Pulse Ox 98 12/30/18 11:58 Intake & Output 12/29/18 12/30/18 12/30/18 18:59 06:59 18:59 Intake Total 1460 1090 Balance 1460 1090 Weight 37.195 kg Intake: Intake, IV Titration 910 1090 Amount Clindamycin 600 mg In 100 50 Dextrose 5% in Water 50 ml @ 50 mls/hr IVPB Q8HR [facility] Rx#:[id number] Sodium Chloride 0.9% 1, 810 1040 000 ml @ 80 mls/hr IV . [id number] [facility] Rx#:[id number] Oral 550 Other: Voiding Method Toilet Toilet Toilet # Voids 1 3 1 - Exam GENERAL EXAM: Frail, cachecti. Alert, active, comfortable in no apparent distress. On nasal O2. HEAD: Normocephalic. EYES: Normal reaction of pupils, equal size. NOSE: Clear with pink turbinates. THROAT: No erythema or exudates. NECK: No masses, no JVD. CHEST: No chest wall deformity. LUNGS: Equal air entry with few scattered rhonchi, bilateral end expiratory wheeze, diminished CVS: S1 and S2 normal with no audible murmur, regular rhythm. ABDOMEN: No hepatosplenomegaly, normal bowel sounds, no guarding or rigidity. SPINE: No scoliosis or deformity SKIN: No rashes CENTRAL NERVOUS SYSTEM: No focal deficits, tone is normal in all 4 extremities. EXTREMITIES: There is no peripheral edema. No clubbing, no cyanosis. Peripheral pulses are intact. - Labs CBC & Chem 7: 12/29/18 07:11 12/29/18 07:11 Labs: Microbiology - Last 24 Hours (Table) 12/28/18 21:30 Blood Culture - Preliminary Blood No Growth after 24 hours Assessment and Plan Assessment: Impression: #1 Acute exacerbation of severe oxygen dependent chronic obstructive pulmonary disease. #2 Chronic and ongoing tobacco dependence. #3 Squamous cell lung cancer diagnosed in October 2017. Status post chemoradiation. Follow-up computed tomography scan in September 2008 revealed evidence of progression. She had been initiated on Opdivo.. #4 Hyperlipidemia. #5 Vitamin D deficiency. #6 Environmental ALLERGIES. #7 Anorexia/cachexia syndrome of malignancy. #7 Osteoarthritis. #9 History of rib fracture. Plan: The patient was seen and evaluated by Dr. Barragan. She is improved from the pulmonary standpoint. Not quite back to her baseline. Still somewhat bronchospastic and wheezy. We'll continue with the current treatment plan including bronchodilators, IV Solu-Medrol. Antibiotics in the form of clindamycin. She is again educated regarding the importance of complete smoking cessation. A NicoDerm patch will be applied. We'll continue to follow and make further recommendations based on her clinical status. I, the cosigning physician, performed a history & physical examination of the patient. Lungs sounds with few scattered rhonchi, end expiratory wheeze, diminished. Maintaining good O2 saturations in the 90s on 2 L/m per nasal cannula. I discussed the assessment and plan of care with my nurse practitioner , Teena Royal. I attest to the above note as dictated by her.
[2018-12-30] MEDS: NICOTINE 14MG/24HR PATCH TRANSDERM SCH (13:26)
--- NOTE | 2018-12-30 13:37 | P.PN ---
Subjective Progress Note Date: 12/30/18 The patient is a 78-year-old female with a PMH of stage III lung CA, on immunotherapy, COPD, and hyperlipidemia presented to the ED due to worsening shortness of breath and cough. The patient complained of pleuritic chest pain, progressive dyspnea with wheezing and cough productive of white phlegm. She also endorsed unintentional 40 pound weight loss over the past few months along with night sweats and chills. Of note the patient was previously admitted to the hospital on 11/18/2018 for postobstructive pneumonia and notes that she doesn't recall being discharged on any antibiotics. The patient is presently receiving immunotherapy every 2 weeks and was scheduled to receive a dose yesterday though was feeling sick and decided to come to the hospital instead. In the ED, the patient underwent a CT chest which showed a cavitary right upper lobe malignancy with chest wall invasion. The patient was admitted to the medicine service for hypoxemic respiratory failure. Pulmonary was consulted and recommended that the shortness of breath was likely due to COPD exacerbation. The patient was seen and examined at the bedside. The patient notes that her breathing continues to improve though she's not back at her baseline as of yet. She denied any episodes of fever, chills, cough, nausea, or vomiting. Objective - Vital Signs Vital signs: Vital Signs Temp 97.3 F L 12/30/18 11:58 Pulse 84 12/30/18 12:22 Resp 16 12/30/18 11:58 BP 137/63 12/30/18 11:58 Pulse Ox 98 12/30/18 11:58 Intake & Output 12/29/18 12/30/18 12/30/18 18:59 06:59 18:59 Intake Total 1460 1090 Balance 1460 1090 Weight 37.195 kg Intake: Intake, IV Titration 910 1090 Amount Clindamycin 600 mg In 100 50 Dextrose 5% in Water 50 ml @ 50 mls/hr IVPB Q8HR [facility] Rx#:[id number] Sodium Chloride 0.9% 1, 810 1040 000 ml @ 80 mls/hr IV . [id number] [facility] Rx#:[id number] Oral 550 Other: Voiding Method Toilet Toilet Toilet # Voids 1 3 1 - Exam General: Elderly, frail female, in no acute distress HEENT: NC/AT, anicteric sclerae, moist conjunctiva Cardiovascular: S1/S2 wnl, no murmurs, rubs, or gallops Lungs: Mild scattered coarse breath sounds, normal respiratory effort, no accessory muscle use Abdominal: Soft, non-tender, non-distended, no guarding, rebound, or rigidity Skin: Warm, dry Extremities: No edema or contractures Psychiatric: Alert and oriented to person, place and time, appropriate affect Neuro: CN II-XII grossly intact, Strength 4/5 in all 4 extremities, Speech intact, Sensation to light touch grossly intact throughout - Labs CBC & Chem 7: 12/29/18 07:11 12/29/18 07:11 Labs: Microbiology - Last 24 Hours (Table) 12/28/18 21:30 Blood Culture - Preliminary Blood No Growth after 24 hours Assessment and Plan Plan: Acute hypoxic respiratory failure, secondary to exacerbation of chronic bronchitis -Continue with supplemental oxygen -Computed tomography scan showing cavitary right upper lobe malignancy -Pulmonary recommendations appreciated -Continue with Solu-Medrol 60 mg every 6 hourly and DuoNeb's -Discontinue clindamycin since unlikely pneumonia Stage III lung CVA, on immunotherapy -Oncology recommendations appreciated, the patient's immunotherapy will be held until she recovers Failure to thrive -Dietary referral Anemia of chronic disease -Hemoglobin stable DVT//GI prophylaxis -Heparin -No indication for GI prophylaxis Discussed with: Patient, daughter Anticipated discharge date: 12/31/[address]: Home A total of 35 minutes was spent on the care of this complex patient more than 50 % of the time was spent in counseling and care coordination.
[2018-12-30] MEDS ORDERED: BISACODYL 5 MG TABLET.DR PO PRN (15:50)
[2018-12-30] MEDS: ATORVASTATIN 20 MG TAB PO SCH (20:20)
[2018-12-31] MEDS: IPRATROPIUM-ALBUTEROL 3 ML NEB INHALATION SCH ×6 (00:06→19:57)
[2018-12-31] MEDS: methylPREDNISolone SOD SUCCI 125 MG/2 ML VIAL IV SCH ×4 (05:41→23:14)
[2018-12-31] MEDS: FORMOTEROL FUMARATE 20 MCG/2 ML NEBU INHALATION SCH ×2 (08:00→19:56)
[2018-12-31] MEDS: BUDESONIDE 1 MG/2 ML NEBU INHALATION SCH ×2 (08:00→19:56)
[2018-12-31] MEDS: HEPARIN SODIUM,PORCINE 5,000 UNIT/ML 1 ML VIAL SQ SCH ×3 (08:49→23:14)
[2018-12-31] MEDS: CALCIUM CARBONATE 500 MG CHEWABLE PO SCH (08:49)
[2018-12-31] MEDS: CYANOCOBALAMIN 500 MCG TAB PO SCH (08:49)
[2018-12-31] MEDS: CHOLECALCIFEROL 1,000 UNIT TAB PO SCH (08:49)
[2018-12-31] MEDS: LORATADINE 10 MG TAB PO SCH (08:50)
[2018-12-31] MEDS: NICOTINE 14MG/24HR PATCH TRANSDERM SCH (08:50)
[2018-12-31] MEDS: MEGESTROL 40 MG TAB PO SCH (08:59)
--- NOTE | 2018-12-31 11:35 | P.PN ---
Subjective Progress Note Date: 12/31/18 Principal diagnosis: Acute exacerbation of chronic hypoxemic respiratory failure secondary to severe COPD The patient is seen today 12/30/2018 in follow-up on the regular medical floor. She is currently awake and alert in no acute distress. Resting quite comfortably in bed. She states she is breathing better today compared to yesterday. Still not back to her baseline. Maintaining good O2 saturations in the upper 90s on 2 L/m per nasal cannula. She's been afebrile. Hemodynamically stable. Blood culture reveals no growth. She is maintained on DuoNeb inhalations, Pulmicort and Perforomist inhalations, IV Solu-Medrol. Antibiotics in the form of clindamycin. On 12/31/2018 patient seen in follow-up on medical surgical floor. Sitting up on the edge of the bed, in no acute distress, lung sounds are diminished, patient's breathing is improving, less dyspneic, and bronchospastic, tolerating ambulation. Patient lung are stable, no fever or chills, she is on 2 L per nasal cannula and her pulse ox is 98%, hemodynamically she stable. No new labs or chest x-rays today. Was cultures show no growth. Patient is on IV steroids , nebulized bronchodilators, Pulmicort, and Perforomist. Clindamycin has been discontinued in view of unlikely pneumonia. Per oncology recommendations for immunotherapy will be held until she recovers. Objective - Vital Signs Vital signs: Vital Signs Temp 97.8 F 12/31/18 05:00 Pulse 94 12/31/18 08:25 Resp 16 12/31/18 05:00 BP 120/62 12/31/18 05:00 Pulse Ox 98 12/31/18 05:00 Intake & Output 12/30/18 12/31/18 12/31/18 18:59 06:59 18:59 Intake Total 1060 1680 240 Balance 1060 1680 240 Intake: Intake, IV Titration 1060 960 Amount Clindamycin 600 mg In 100 Dextrose 5% in Water 50 ml @ 50 mls/hr IVPB Q8HR [facility] Rx#:[id number] Sodium Chloride 0.9% 1, 960 960 000 ml @ 80 mls/hr IV . [id number] [facility] Rx#:[id number] Oral 720 240 Other: Voiding Method Toilet Toilet # Voids 1 2 # Bowel Movements 2 2 - Exam GENERAL EXAM: Alert, active, comfortable in no apparent distress. HEAD: Normocephalic/atraumatic. EYES: Normal reaction of pupils, equal size. Conjunctiva pink, sclera white. NOSE: Clear with pink turbinates. THROAT: No erythema or exudates. NECK: No masses, no JVD, no thyroid enlargement, no adenopathy. CHEST: No chest wall deformity. Symmetrical expansion. LUNGS: Equal air entry with diminished breath sounds CVS: Regular rate and rhythm, normal S1 and S2, no gallops, no murmurs, no rubs ABDOMEN: Soft, nontender. No hepatosplenomegaly, normal bowel sounds, no guarding or rigidity. EXTREMITIES: No clubbing, no edema, no cyanosis, 2+ pulses and upper and lower extremities. MUSCULOSKELETAL: Muscle strength and tone normal. SPINE: No scoliosis or deformity SKIN: No rashes CENTRAL NERVOUS SYSTEM: Alert and oriented -3. No focal deficits, tone is normal in all 4 extremities. PSYCHIATRIC: Alert and oriented -3. Appropriate affect. Intact judgment and insight. - Labs CBC & Chem 7: 12/29/18 07:11 12/29/18 07:11 Labs: Microbiology - Last 24 Hours (Table) 12/28/18 21:30 Blood Culture - Preliminary Blood No Growth after 48 hours Assessment and Plan Plan: #1 Acute exacerbation of severe oxygen dependent chronic obstructive pulmonary disease. #2 Chronic and ongoing tobacco dependence. #3 Squamous cell lung cancer diagnosed in October 2017. Status post chemoradiation. Follow-up computed tomography scan in September 2008 revealed evidence of progression. She had been initiated on Opdivo.. #4 Hyperlipidemia. #5 Vitamin D deficiency. #6 Environmental ALLERGIES. #7 Anorexia/cachexia syndrome of malignancy. #7 Osteoarthritis. #9 History of rib fracture. Plan: Patient is stable from pulmonary perspective, less dyspneic and bronchospastic, tolerating ambulation, she can be discharged home from pulmonary perspective, on short course of oral prednisone, no need for antibiotics, she was treated with the clindamycin, for a cavitary lesion in the right lung, which is related to patient's underlying squamous cell carcinoma. Immunotherapy is on hold per oncology until patient recovers. She will need to be seen in the office by Dr. Dr. Barragan in 7-10 days I performed a history & physical examination of the patient and discussed their management with my nurse practitioner, Lorie Waterman. I reviewed the nurse practitioner's note and agree with the documented findings and plan of care. Lung sounds are positive for diminished breath sounds. The findings and the impression was discussed with the patient. I attest to the documentation by the nurse practitioner. Time with Patient: Less than 30
[2018-12-31] MEDS: SODIUM CHLORIDE 0.9% 1,000 ML IV SCH (14:33)
--- NOTE | 2018-12-31 17:20 | P.PN ---
Subjective Progress Note Date: 12/31/18 The patient is a 78-year-old female with a PMH of stage III lung CA, on immunotherapy, COPD, and hyperlipidemia presented to the ED due to worsening shortness of breath and cough. The patient complained of pleuritic chest pain, progressive dyspnea with wheezing and cough productive of white phlegm. She also endorsed unintentional 40 pound weight loss over the past few months along with night sweats and chills. Of note the patient was previously admitted to the hospital on 11/18/2018 for postobstructive pneumonia and notes that she doesn't recall being discharged on any antibiotics. The patient is presently receiving immunotherapy every 2 weeks and was scheduled to receive a dose yesterday though was feeling sick and decided to come to the hospital instead. In the ED, the patient underwent a CT chest which showed a cavitary right upper lobe malignancy with chest wall invasion. The patient was admitted to the medicine service for hypoxemic respiratory failure. Pulmonary was consulted and recommended that the shortness of breath was likely due to COPD exacerbation. The patient was seen and examined at the bedside on 12/31/2018. The patient endorsed continued wheezing with some shortness of breath. She denied chest pain, fever, or chills. She also denied abdominal pain, nausea, vomiting, or palpitations. Objective - Vital Signs Vital signs: Vital Signs Temp 97.5 F L 12/31/18 13:28 Pulse 88 12/31/18 16:37 Resp 18 12/31/18 16:00 BP 126/68 12/31/18 13:28 Pulse Ox 99 12/31/18 16:23 Intake & Output 12/30/18 12/31/18 12/31/18 18:59 06:59 18:59 Intake Total 1060 1680 1080 Balance 1060 1680 1080 Intake: Intake, IV Titration 1060 960 600 Amount Clindamycin 600 mg In 100 Dextrose 5% in Water 50 ml @ 50 mls/hr IVPB Q8HR [facility] Rx#:[id number] Sodium Chloride 0.9% 1, 960 960 600 000 ml @ 80 mls/hr IV . [id number] [facility] Rx#:[id number] Oral 720 480 Other: Voiding Method Toilet Toilet Toilet # Voids 1 2 3 # Bowel Movements 2 2 - Exam General: Elderly, frail female, in no acute distress HEENT: NC/AT, anicteric sclerae, moist conjunctiva Cardiovascular: S1/S2 wnl, no murmurs, rubs, or gallops Lungs: Scattered coarse breath sounds w/ wheezing, normal respiratory effort, no accessory muscle use Abdominal: Soft, non-tender, non-distended, no guarding, rebound, or rigidity Skin: Warm, dry Extremities: No edema or contractures Psychiatric: Alert and oriented to person, place and time, appropriate affect Neuro: CN II-XII grossly intact, Strength 4/5 in all 4 extremities, Speech intact, Sensation to light touch grossly intact throughout - Labs CBC & Chem 7: 12/29/18 07:11 12/29/18 07:11 Labs: Microbiology - Last 24 Hours (Table) 12/28/18 21:30 Blood Culture - Preliminary Blood No Growth after 48 hours Assessment and Plan Plan: Acute hypoxic respiratory failure, secondary to exacerbation of chronic bronchitis -Continue with supplemental oxygen -Computed tomography scan showing cavitary right upper lobe malignancy -Pulmonary recommendations appreciated -Continue with Solu-Medrol 60 mg every 6 hourly and DuoNeb's Stage III lung CVA, on immunotherapy -Oncology recommendations appreciated, the patient's immunotherapy will be held until she recovers Failure to thrive -Dietary referral Anemia of chronic disease -Hemoglobin stable DVT//GI prophylaxis -Heparin -No indication for GI prophylaxis Discussed with: Patient, daughter Anticipated discharge date: 01/01/[address]: Home A total of 35 minutes was spent on the care of this complex patient more than 50 % of the time was spent in counseling and care coordination.
[2018-12-31] MEDS ORDERED: BENZOCAINE/MENTHOL LOZENG 1 EACH LOZENGE MUCOUS MEM PRN (18:43)
[2018-12-31] MEDS: ATORVASTATIN 20 MG TAB PO SCH (20:15)
[2018-12-31] MEDS: ALPRAZolam 0.5 MG TAB PO PRN (23:14)
[2018-12-31] MEDS: IPRATROPIUM-ALBUTEROL 3 ML NEB INHALATION PRN (23:19)
[2019-01-01] MEDS: IPRATROPIUM-ALBUTEROL 3 ML NEB INHALATION PRN ×2 (03:44→08:27)
[2019-01-01] MEDS ORDERED: FUROSEMIDE 10 MG/ML 2 ML VIAL IV STA (03:56)
--- NOTE | 2019-01-01 04:28 | XR ---
EXAMINATION TYPE: XR chest 1V DATE OF EXAM: 01/01/2019 COMPARISON: 12/28/2018 HISTORY: Short of breath TECHNIQUE: Single frontal view of the chest is obtained. FINDINGS: There is a 6 x 5 cm cavitating infiltrate lateral right upper lobe. There is suggestion of new infiltrate in the periphery of the left midlung field compared to last exam. There is no heart f ailure. Heart size is normal. There is no pleural effusion. Trachea is deviated to the right side. IMPRESSION: Cavitating infiltrate right upper lobe unchanged. Possible new infiltrate in the left mi dlung periphery. Mild right upper lobe volume loss.
[2019-01-01] MEDS: SODIUM CHLORIDE 0.9% 1,000 ML IV SCH (04:50)
[2019-01-01] MEDS: methylPREDNISolone SOD SUCCI 125 MG/2 ML VIAL IV SCH ×4 (05:07→23:22)
--- NOTE | 2019-01-01 06:00 | P.PN ---
Progress Note - Text Progress Note Date: 01/01/19 called by RN due to labored breathing and panic , along with decrease in oxygen saturation . patient breathing was more noisy , along with some coarse crackles. CXR, showed some degree of vascular congestion vs possible infilterate over left mid lung, to me it looked more like vascular congestion , patient has been on 80 cc of normal saline for days patient improved after a dose of IV lasix, and urinating. IVF was discontinued . patient breathing more comfortably at this time l
[2019-01-01 08:09] LABS: Anisocytosis Slight; HCT 30.6 % (34.0-46.0); HGB 8.8 gm/dL (11.4-16.0); Hypochromasia Marked; MCH 26.5 pg (25.0-35.0); MCHC 28.8 g/dL (31.0-37.0); Mean Platelet Volume 7.8; Platelet Count 262 k/uL (150-450); RBC 3.32 m/uL (3.80-5.40); RDW 17.8 % (11.5-15.5); WBC 11.6 k/uL (3.8-10.6)
[2019-01-01 08:16] LABS: Anion Gap 11 mmol/L; Blood Urea Nitrogen 27 mg/dL (7-17); Calcium 9.5 mg/dL (8.4-10.2); Carbon Dioxide 24 mmol/L (22-30); Chloride 112 mmol/L (98-107); Glucose 120 mg/dL (74-99); Sodium 147 mmol/L (137-145)
[2019-01-01 08:24] LABS: MCV 92.2 fL (80.0-100.0)
[2019-01-01] MEDS: BUDESONIDE 1 MG/2 ML NEBU INHALATION SCH ×2 (08:27→20:43)
[2019-01-01] MEDS: FORMOTEROL FUMARATE 20 MCG/2 ML NEBU INHALATION SCH ×2 (08:27→20:56)
[2019-01-01] MEDS: ALPRAZolam 0.5 MG TAB PO PRN ×2 (08:59→17:37)
[2019-01-01] MEDS: HEPARIN SODIUM,PORCINE 5,000 UNIT/ML 1 ML VIAL SQ SCH (09:03)
[2019-01-01] MEDS: LORATADINE 10 MG TAB PO SCH (09:04)
[2019-01-01] MEDS: CALCIUM CARBONATE 500 MG CHEWABLE PO SCH (09:04)
[2019-01-01] MEDS: CHOLECALCIFEROL 1,000 UNIT TAB PO SCH (09:04)
[2019-01-01] MEDS: MEGESTROL 40 MG TAB PO SCH (09:04)
[2019-01-01] MEDS: CYANOCOBALAMIN 500 MCG TAB PO SCH (09:04)
[2019-01-01] MEDS: NICOTINE 14MG/24HR PATCH TRANSDERM SCH (10:01)
[2019-01-01] MEDS ORDERED: ALBUTEROL NEBULIZED 2.5 MG/3 ML INHALATION PRN (10:52)
--- NOTE | 2019-01-01 11:08 | P.PN ---
Subjective Progress Note Date: 01/01/19 Principal diagnosis: Shortness of breath Patient is a 78-year-old female with past medical history of stage III lung cancer on immunotherapy with Depo, COPD, and dyslipidemia who presented to the emergency department with complaints of worsening shortness of breath and cough. In the ER she underwent an extensive evaluation. CT of the chest showed cavitary right upper lobe malignancy with chest wall invasion, this is known to the patient. Initial laboratory analysis was consistent with her known anemia, was otherwise unremarkable. Influenza was negative. She was started on DuoNeb's and bronchodilators for possible acute exacerbation of COPD. There is concern for possible pneumonia and she was started on clindamycin due to penicillin and cephalosporin intolerance. She was seen by oncology who recommended holding her off opdivo therapy. There is concern for possible pneumonitis. Pulmonary was consulted and felt that her shortness of breath was likely to acute exacerbation of COPD. She was maintained on IV steroids and bronchodilators. On 12/30 her antibiotic was discontinued with thoughts that there was no underlying pneumonia. On the morning of 01/01 she developed worsening shortness of breath. Chest x-ray was done and covering physician had concerns for fluid overload. She was given 1 dose of IV Lasix and seemed to respond well. Chest x-ray was reviewed and shows possible right middle lobe infiltrate. She was started on Levaquin therapy. Patient seen and examined at bedside. She complains of being short of breath and feeling very anxious. She has some chest wall tightness and feeling she is having difficulty producing sputum. She is having mild nausea. She denies any vomiting. No diarrhea or constipation. She states that she has had to have recent IV difficulty as an outpatient for therapy. She is requesting port if possible. Objective - Vital Signs Vital signs: Vital Signs Temp 97.3 F L 01/01/19 05:00 Pulse 117 H 01/01/19 08:51 Resp 17 01/01/19 05:00 BP 127/81 01/01/19 05:00 Pulse Ox 97 01/01/19 08:27 Intake & Output 12/31/18 01/01/19 01/01/19 18:59 06:59 18:59 Intake Total 1080 Balance 1080 Intake: Intake, IV Titration 600 Amount Sodium Chloride 0.9% 1, 600 000 ml @ 80 mls/hr IV . [id number] [facility] Rx#:[id number] Oral 480 Other: Voiding Method Toilet Toilet # Voids 3 3 # Bowel Movements 2 - Exam General: ill appearing, no distress, appears at stated age Derm: warm, dry Head: atraumatic, normocephalic, symmetric Eyes: EOMI, no lid lag, anicteric sclera Mouth: no lip lesion, mucus membranes moist Cardiovascular: S1S2 reg, no murmur, positive posterior tibial pulse bilateral, Lungs: wheeze expiratory, and rhonchi bilateral , no accessory muscle use Abdominal: soft, nontender to palpation, no guarding, no appreciable organomegaly Ext: no gross muscle atrophy, no edema, no contractures Neuro: CN II-XI grossly intact, no focal neuro deficits Psych: Alert, oriented, appropriate affect - Labs CBC & Chem 7: 01/01/19 07:09 01/01/19 07:09 Labs: Abnormal Lab Results - Last 24 Hours (Table) 01/01/19 01/01/19 Range/Units 07:09 07:09 WBC 11.6 H (3.8-10.6) k/uL RBC 3.32 L (3.80-5.40) m/uL Hgb 8.8 L (11.4-16.0) gm/dL Hct 30.6 L (34.0-46.0) % MCHC 28.8 L (31.0-37.0) g/dL RDW 17.8 H (11.5-15.5) % Sodium 147 H (137-145) mmol/L Chloride 112 H (98-107) mmol/L BUN 27 H (7-17) mg/dL Creatinine 0.47 L (0.52-1.04) mg/dL Glucose 120 H (74-99) mg/dL Microbiology - Last 24 Hours (Table) 12/28/18 21:30 Blood Culture - Preliminary Blood No Growth after 72 hours Assessment and Plan Assessment: Acute exacerbation of COPD, possible left middle lobe pneumonia -Add scheduled DuoNeb's and when necessary albuterol, continue with fometerol and budesonide -Continue with with Solu-Medrol but start to wean -Add Levaquin -Repeat chest x-ray in a.m. -Pulmonary recommendations Acute hypoxic respiratory failure -Treatment as above Lung cancer stage III -Discussed with oncology and would be a candidate for report, however with delay this until respiratory status is more stable -Continue outpatient follow-up with Dr. Stevens Cachexia with BMI 14.5 and failure to thrive with documented 40 pound weight loss -Dietary recommendations Anemia of chronic disease -Hemoglobin stable -Follow intermittent CBC DVT prophylaxis: heparin changed to lovenox Discussed with: patient, Trixie vargas, [employer]ERV[employer]PERATOR Anticipated discharge: 24-[address]: home with home health A total of 45 minutes was spent on the care of this complex patient more than 50 % of the time was spent in counseling and care coordination.
[2019-01-01] MEDS: guaiFENesin 600 MG TABLET.ER PO SCH ×2 (12:30→21:06)
[2019-01-01] MEDS: LEVOFLOXACIN 750MG-D5W PMX 750 MG in DEXTROSE/WATER 1 150ML.BAG IVPB SCH (12:30)
[2019-01-01] MEDS: CEFEPIME 1 GM in SODIUM CHLORIDE 0.9% 50 ML IVPB SCH ×2 (14:04→21:06)
[2019-01-01] MEDS: IPRATROPIUM-ALBUTEROL 3 ML NEB INHALATION SCH ×4 (14:11→20:43)
--- NOTE | 2019-01-01 16:57 | P.PN ---
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 The Patient Also Has Advanced COPD. The Patient Presented to Hospital Because of Worsening Shortness of Breath, Cough Chest Congestion Chest That Is so Wheezing. Unfortunately, the Patient Is Not Showing Significant Improvement. She Was Treated with Levaquin. A Repeat CAT Scan of the Chest Was Done That Showed a Cavitating Mass in the Right Upper Lobe Which Obviously Raises the Concern of an Underlying Pneumonia in Addition to a Squamous Cell Carcinoma That Can Typically Cavitate. For now, the patient has been treated with accommodation bronchodilators, steroids and antibiotics. Recovery has not been that great. The patient is still having mild nausea. She is still having a congested cough. She is unable to expectorate or bring up any mucus. She is very anxious. She is considering to stop the treatment altogether specially the immunotherapy that she has been receiving on outpatient basis. I reviewed the CAT scan of the chest. There is a masslike component in the right upper lobe in addition to a cavitating right upper lobe lesion. There is however some surrounding consolidation and this obviously raises the concern for underlying pneumonia. Objective - Vital Signs Vital signs: Vital Signs Temp 97.7 F 01/01/19 12:08 Pulse 112 H 01/01/19 14:32 Resp 20 01/01/19 12:08 BP 125/62 01/01/19 12:08 Pulse Ox 96 01/01/19 12:08 Intake & Output 12/31/18 01/01/19 01/01/19 18:59 06:59 18:59 Intake Total 1080 650 Balance 1080 650 Weight 37.195 kg Intake: Intake, IV Titration 600 50 Amount Cefepime 1 gm In Sodium 50 Chloride 0.9% 50 ml @ 100 mls/hr IVPB Q12HR [facility] Rx #:[id number] Sodium Chloride 0.9% 1, 600 000 ml @ 80 mls/hr IV . [id number] [facility] Rx#:[id number] Oral 480 600 Other: Voiding Method Toilet Toilet Toilet # Voids 3 3 2 # Bowel Movements 2 - Exam General: ill appearing, no distress, appears at stated age Derm: warm, dry Head: atraumatic, normocephalic, symmetric Eyes: EOMI, no lid lag, anicteric sclera Mouth: no lip lesion, mucus membranes moist Cardiovascular: S1S2 reg, no murmur, positive posterior tibial pulse bilateral, Lungs: wheeze expiratory, and rhonchi bilateral , no accessory muscle use Abdominal: soft, nontender to palpation, no guarding, no appreciable organomegaly Ext: no gross muscle atrophy, no edema, no contractures Neuro: CN II-XI grossly intact, no focal neuro deficits Psych: Alert, oriented, appropriate affect - Labs CBC & Chem 7: 01/01/19 07:09 01/01/19 07:09 Labs: Abnormal Lab Results - Last 24 Hours (Table) 01/01/19 01/01/19 Range/Units 07:09 07:09 WBC 11.6 H (3.8-10.6) k/uL RBC 3.32 L (3.80-5.40) m/uL Hgb 8.8 L (11.4-16.0) gm/dL Hct 30.6 L (34.0-46.0) % MCHC 28.8 L (31.0-37.0) g/dL RDW 17.8 H (11.5-15.5) % Sodium 147 H (137-145) mmol/L Chloride 112 H (98-107) mmol/L BUN 27 H (7-17) mg/dL Creatinine 0.47 L (0.52-1.04) mg/dL Glucose 120 H (74-99) mg/dL Microbiology - Last 24 Hours (Table) 12/28/18 21:30 Blood Culture - Preliminary Blood No Growth after 72 hours Assessment and Plan Plan: Assessment 1 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 CAT scan of the chest was reviewed and there is a cavitating right upper lobe mass with surrounding consolidation. This could be combination of tumor progression with squamous cell carcinoma in addition to a superimposed right upper lobe pneumonia 2 COPD exacerbation secondary to above 3 acute hypoxic respiratory failure secondary to above 4 cachexia with a BMI of 14.5 5 anemia of chronic disease Plan The patient will be kept on Levaquin. Will add cefepime to broaden antibiotic coverage. Continue the bronchodilators and steroids. Consider bronchoscopy within next 24 hours if there is no improvement in her condition. Obviously there is a malignant component in the right upper lobe which is causing cavitation and a superimposed right upper lobe pneumonia cannot be completely excluded. The patient was agreeable to consider bronchoscopy if her condition does not improve. It final decision will be made if no improvement within next 24-48 hours. Continue Mucinex. We'll continue to follow.
--- NOTE | 2019-01-01 17:08 | P.PN ---
Subjective Progress Note Date: 01/01/19 Principal diagnosis: COPD exacerbation, SOB, on treatment for NSCLC IN f/u pt has c/o of feeling worse today then yesterday, more SOB, cough is congested, thick sputum, not always able to expectorate, weak and shaky, appetite is poor, no fever, nausea, diarrhea or constipation Objective - Vital Signs Vital signs: Vital Signs Temp 97.7 F 01/01/19 12:08 Pulse 112 H 01/01/19 14:32 Resp 20 01/01/19 12:08 BP 125/62 01/01/19 12:08 Pulse Ox 96 01/01/19 12:08 Intake & Output 12/31/18 01/01/19 01/01/19 18:59 06:59 18:59 Intake Total 1080 650 Balance 1080 650 Weight 37.195 kg Intake: Intake, IV Titration 600 50 Amount Cefepime 1 gm In Sodium 50 Chloride 0.9% 50 ml @ 100 mls/hr IVPB Q12HR [facility] Rx #:[id number] Sodium Chloride 0.9% 1, 600 000 ml @ 80 mls/hr IV . [id number] [facility] Rx#:[id number] Oral 480 600 Other: Voiding Method Toilet Toilet Toilet # Voids 3 3 2 # Bowel Movements 2 - Constitutional General appearance: Present: cooperative, mild distress, thin - EENT Eyes: Present: EOMI ENT: Present: hearing grossly normal - Respiratory Details: respiratory effort is mildly labored, expiration>inspiration Respiratory: right: wheezing (anterior), bilateral: rhonchi (R>L) - Cardiovascular Heart sounds: normal: S1, S2 - Peripheral edema leg Peripheral Edema: bilateral: None - Gastrointestinal General gastrointestinal: Present: normal bowel sounds, soft - Integumentary Integumentary: Present: pale - Neurologic Neurologic: Present: CNII-XII intact - Musculoskeletal Musculoskeletal: Present: generalized weakness - Psychiatric Psychiatric: Present: A&O x's 3, appropriate affect, intact judgment & insight - Labs CBC & Chem 7: 01/01/19 07:09 01/01/19 07:09 Labs: Abnormal Lab Results - Last 24 Hours (Table) 01/01/19 01/01/19 Range/Units 07:09 07:09 WBC 11.6 H (3.8-10.6) k/uL RBC 3.32 L (3.80-5.40) m/uL Hgb 8.8 L (11.4-16.0) gm/dL Hct 30.6 L (34.0-46.0) % MCHC 28.8 L (31.0-37.0) g/dL RDW 17.8 H (11.5-15.5) % Sodium 147 H (137-145) mmol/L Chloride 112 H (98-107) mmol/L BUN 27 H (7-17) mg/dL Creatinine 0.47 L (0.52-1.04) mg/dL Glucose 120 H (74-99) mg/dL Microbiology - Last 24 Hours (Table) 12/28/18 21:30 Blood Culture - Preliminary Blood No Growth after 72 hours - Imaging and Cardiology Chest x-ray: report reviewed Assessment and Plan (1) Adenocarcinoma, lung Narrative/Plan: Pt is currently s/p 5 cycles of nivolumab with decent tolerance overall. Pt was due for treatment f/u scans in 3 days. She has had the CT chest, CT AP will be ordered. F/U scheduled with Dr. Stevens next week. Pt is upset about poor peripheral access and is debating on continuing chemo. She can get a port or PICC if desired. Current Visit: Yes Status: Chronic Priority: Medium Code(s): C34.90 - MALIGNANT NEOPLASM OF UNSP PART OF UNSP BRONCHUS OR LUNG SNOMED Code(s): 825574968 (2) Acute exacerbation of chronic obstructive airways disease Narrative/Plan: Being treated for the same. She was doing better yesterday then today. Will f/ u in AM and evaluate progress. Pt is on abx, nebulizers and inhalers Current Visit: Yes Status: Acute Priority: High Code(s): J44.1 - CHRONIC OBSTRUCTIVE PULMONARY DISEASE W (ACUTE) EXACERBATION SNOMED Code(s): 067596506 (3) Chronic anemia Narrative/Plan: Iron studies were checked last month at the office. Will review to see if any particular supplementation appropriate Current Visit: Yes Status: Chronic Priority: Medium Code(s): D64.9 - ANEMIA, UNSPECIFIED SNOMED Code(s): 510730077
[2019-01-01] MEDS: ATORVASTATIN 20 MG TAB PO SCH (21:06)
[2019-01-01] MEDS: LACTOBACILLUS ACIDOPH & BULGAR 1 EACH PACKET PO SCH (21:06)
[2019-01-02] MEDS: methylPREDNISolone SOD SUCCI 125 MG/2 ML VIAL IV SCH ×4 (05:51→23:05)
[2019-01-02 07:52] LABS: Anisocytosis Slight; HCT 28.1 % (34.0-46.0); HGB 8.3 gm/dL (11.4-16.0); Hypochromasia Marked; MCH 26.3 pg (25.0-35.0); MCHC 29.6 g/dL (31.0-37.0); MCV 88.8 fL (80.0-100.0); Platelet Count 320 k/uL (150-450); RBC 3.17 m/uL (3.80-5.40); RDW 17.9 % (11.5-15.5); WBC 13.1 k/uL (3.8-10.6)
[2019-01-02 08:05] LABS: Anion Gap 5 mmol/L; Blood Urea Nitrogen 36 mg/dL (7-17); Calcium 9.5 mg/dL (8.4-10.2); Carbon Dioxide 29 mmol/L (22-30); Chloride 110 mmol/L (98-107); Glucose 127 mg/dL (74-99); Potassium 4.3 mmol/L (3.5-5.1); Sodium 144 mmol/L (137-145)
[2019-01-02] MEDS: IPRATROPIUM-ALBUTEROL 3 ML NEB INHALATION SCH ×4 (08:15→20:17)
[2019-01-02] MEDS: BUDESONIDE 1 MG/2 ML NEBU INHALATION SCH ×2 (08:15→20:17)
[2019-01-02] MEDS: FORMOTEROL FUMARATE 20 MCG/2 ML NEBU INHALATION SCH ×2 (08:30→20:17)
[2019-01-02] MEDS: CHOLECALCIFEROL 1,000 UNIT TAB PO SCH (09:09)
[2019-01-02] MEDS: ALPRAZolam 0.5 MG TAB PO PRN (09:09)
[2019-01-02] MEDS: CYANOCOBALAMIN 500 MCG TAB PO SCH (09:09)
[2019-01-02] MEDS: guaiFENesin 600 MG TABLET.ER PO SCH ×2 (09:09→21:26)
[2019-01-02] MEDS: LORATADINE 10 MG TAB PO SCH (09:09)
[2019-01-02] MEDS: CALCIUM CARBONATE 500 MG CHEWABLE PO SCH (09:09)
[2019-01-02] MEDS: CEFEPIME 1 GM in SODIUM CHLORIDE 0.9% 50 ML IVPB SCH ×2 (09:09→21:30)
[2019-01-02] MEDS: MEGESTROL 40 MG TAB PO SCH (09:10)
[2019-01-02] MEDS: ENOXAPARIN 40 MG/0.4 ML SYRINGE SQ SCH (09:10)
[2019-01-02] MEDS: NICOTINE 14MG/24HR PATCH TRANSDERM SCH (09:10)
[2019-01-02] MEDS: LACTOBACILLUS ACIDOPH & BULGAR 1 EACH PACKET PO SCH ×2 (09:11→21:23)
[2019-01-02] MEDS: IOPAMIDOL-300 CONTRAST 30 ML VIAL (ORAL USE) PO PRN ×2 (11:39→12:19)
[2019-01-02] MEDS: LEVOFLOXACIN 750MG-D5W PMX 750 MG in DEXTROSE/WATER 1 150ML.BAG IVPB SCH (11:43)
--- NOTE | 2019-01-02 12:26 | XR ---
EXAMINATION TYPE: XR chest 1V portable DATE OF EXAM: 01/02/2019 COMPARISON: Prior chest x-ray 01/01/[address] chest 12/29/2017 HISTORY: Pneumonia TECHNIQUE: Single frontal view of the chest is obtained. FINDINGS: Abnormal increased attenuation, cavitary lesion in the right upper lobe, pleural parenchym al changes are stable. Rib destruction is present at multiple ribs. Chest wall deformity. Patient is rotated, there may be scoliosis. Cardiac mediastinal silhouette, pulmonary vascularity and raisa are s table. Prominent lung volumes compatible with underlying emphysema. IMPRESSION: Cavitary right upper lobe lung mass.
--- NOTE | 2019-01-02 13:44 | CT ---
EXAMINATION TYPE: CT abdomen pelvis w con DATE OF EXAM: 01/02/2019 COMPARISON: HISTORY: F/U CA CT DLP: 260.4 mGycm CONTRAST: CT scan of the abdomen and pelvis is performed with Oral Contrast and with IV Contrast, patient injec cherelle with 82 mL of Isovue 300. FINDINGS: LUNG BASES-: 5 mm subpleural nodular density right lower lobe. Emphysematous changes noted. No infilt rate. LIVER/GB: No calcified gallstones. No space occupying hepatic lesion. Biliary tree is of normal ca liber. Mild hepatic steatosis noted. PANCREAS: No inflammation. No distinct mass. SPLEEN: No splenic enlargement. No lesion seen. ADRENALS: No nodule. No thickening. KIDNEYS/BLADDER: No hydronephrosis. Nonobstructing right-sided nephrolithiasis. No distinct renal ma ss. Urinary bladder grossly unremarkable. BOWEL: Normal appendix. Normal bowel caliber. No inflammation. At least moderate fecal stasis noted . GENITAL ORGANS: No gross abnormality. LYMPH NODES: No greater than 1cm abdominal or pelvic lymph nodes are appreciated. AORTA: No significant abnormality. OSSEOUS STRUCTURES: No significant abnormality is seen. OTHER: No significant additional abnormality is seen. IMPRESSION: 1. At least moderate fecal stasis. 2. Mild hepatic steatosis. 3. Nonobstructing right-sided nephrolithiasis. 3. Nonspecific Subpleural nodule right lower lobe.
--- NOTE | 2019-01-02 14:01 | P.PN ---
Subjective Progress Note Date: 01/02/19 Principal diagnosis: Acute exacerbation of chronic hypoxemic respiratory failure secondary to severe COPD The patient is seen today 12/30/2018 in follow-up on the regular medical floor. She is currently awake and alert in no acute distress. Resting quite comfortably in bed. She states she is breathing better today compared to yesterday. Still not back to her baseline. Maintaining good O2 saturations in the upper 90s on 2 L/m per nasal cannula. She's been afebrile. Hemodynamically stable. Blood culture reveals no growth. She is maintained on DuoNeb inhalations, Pulmicort and Perforomist inhalations, IV Solu-Medrol. Antibiotics in the form of clindamycin. On 12/31/2018 patient seen in follow-up on medical surgical floor. Sitting up on the edge of the bed, in no acute distress, lung sounds are diminished, patient's breathing is improving, less dyspneic, and bronchospastic, tolerating ambulation. Patient lung are stable, no fever or chills, she is on 2 L per nasal cannula and her pulse ox is 98%, hemodynamically she stable. No new labs or chest x-rays today. Was cultures show no growth. Patient is on IV steroids , nebulized bronchodilators, Pulmicort, and Perforomist. Clindamycin has been discontinued in view of unlikely pneumonia. Per oncology recommendations for immunotherapy will be held until she recovers. On 01/02/2019 patient seen in follow-up on medical oncology floor. Still quite wheezy, and congested, with a very slight improvement compared to yesterday. She is on 3 L per nasal cannula her pulse ox is 98%, she is afebrile, slightly tachycardic with a heart rate up to 116 BPM. Quite dyspneic with any exertion. Not bringing up much sputum. Blood culture showed no growth. Patient's antibiotic coverage was switched to cefepime and Levaquin, patient is on IV steroids, and nebulized bronchodilators. Objective - Vital Signs Vital signs: Vital Signs Temp 97.5 F L 01/02/19 12:08 Pulse 110 H 01/02/19 12:08 Resp 22 01/02/19 12:08 BP 146/76 01/02/19 12:08 Pulse Ox 98 01/02/19 12:08 Intake & Output 01/01/19 01/02/19 01/02/19 18:59 06:59 18:59 Intake Total 650 2690 1400 Balance 650 2690 1400 Weight 37.195 kg Intake: Intake, IV Titration 50 1010 200 Amount Cefepime 1 gm In Sodium 50 50 50 Chloride 0.9% 50 ml @ 100 mls/hr IVPB Q12HR [facility] Rx #:[id number] Levofloxacin 750Mg-D5w 150 Pmx 750 mg In Dextrose/ Water 1 150ml.bag @ 100 mls/hr IVPB Q24H [facility] Rx#: [id number] Sodium Chloride 0.9% 1, 960 000 ml @ 80 mls/hr IV . [id number] [facility] Rx#:[id number] Oral 600 1680 1200 Other: Voiding Method Toilet Toilet # Voids 2 2 1 # Bowel Movements 1 - Exam GENERAL EXAM: Alert, active, comfortable in no apparent distress. HEAD: Normocephalic/atraumatic. EYES: Normal reaction of pupils, equal size. Conjunctiva pink, sclera white. NOSE: Clear with pink turbinates. THROAT: No erythema or exudates. NECK: No masses, no JVD, no thyroid enlargement, no adenopathy. CHEST: No chest wall deformity. Symmetrical expansion. LUNGS: Equal air entry with diminished breath sounds diffuse wheezes and rhonchi CVS: Regular rate and rhythm, normal S1 and S2, no gallops, no murmurs, no rubs ABDOMEN: Soft, nontender. No hepatosplenomegaly, normal bowel sounds, no guarding or rigidity. EXTREMITIES: No clubbing, no edema, no cyanosis, 2+ pulses and upper and lower extremities. MUSCULOSKELETAL: Muscle strength and tone normal. SPINE: No scoliosis or deformity SKIN: No rashes CENTRAL NERVOUS SYSTEM: Alert and oriented -3. No focal deficits, tone is normal in all 4 extremities. PSYCHIATRIC: Alert and oriented -3. Appropriate affect. Intact judgment and insight. - Labs CBC & Chem 7: 01/02/19 07:18 01/02/19 07:18 Labs: Abnormal Lab Results - Last 24 Hours (Table) 01/02/19 01/02/19 Range/Units 07:18 07:18 WBC 13.1 H (3.8-10.6) k/uL RBC 3.17 L (3.80-5.40) m/uL Hgb 8.3 L (11.4-16.0) gm/dL Hct 28.1 L (34.0-46.0) % MCHC 29.6 L (31.0-37.0) g/dL RDW 17.9 H (11.5-15.5) % Chloride 110 H (98-107) mmol/L BUN 36 H (7-17) mg/dL Glucose 127 H (74-99) mg/dL Microbiology - Last 24 Hours (Table) 12/28/18 21:30 Blood Culture - Preliminary Blood No Growth after 96 hours Assessment and Plan Plan: #1 Acute exacerbation of severe oxygen dependent chronic obstructive pulmonary disease. #2 Chronic and ongoing tobacco dependence. #3 Squamous cell lung cancer diagnosed in October 2017. Status post chemoradiation. Follow-up computed tomography scan in September 2008 revealed evidence of progression. She had been initiated on Opdivo. #4 Hyperlipidemia. #5 Vitamin D deficiency. #6 Environmental ALLERGIES. #7 Anorexia/cachexia syndrome of malignancy. #7 Osteoarthritis. #9 History of rib fracture. Plan: Continue current antibiotic coverage, cefepime and Levaquin, still quite bronchospastic and congested, continue current dose of IV steroids. Today's chest x-ray shows cavitary right upper lobe lung mass. May consider bronchoscopy if patient shows no improvement. I performed a history & physical examination of the patient and discussed their management with my nurse practitioner, Lorie Waterman. I reviewed the nurse practitioner's note and agree with the documented findings and plan of care. Lung sounds are positive for diminished breath sounds, . The findings and the impression was discussed with the patient. I attest to the documentation by the nurse practitioner. Time with Patient: Less than 30
--- NOTE | 2019-01-02 16:49 | P.PN ---
Subjective Progress Note Date: 01/02/19 Principal diagnosis: Shortness of breath Patient is a 78-year-old female with past medical history of stage III lung cancer on immunotherapy with Depo, COPD, and dyslipidemia who presented to the emergency department with complaints of worsening shortness of breath and cough. In the ER she underwent an extensive evaluation. CT of the chest showed cavitary right upper lobe malignancy with chest wall invasion, this is known to the patient. Initial laboratory analysis was consistent with her known anemia, was otherwise unremarkable. Influenza was negative. She was started on DuoNeb's and bronchodilators for possible acute exacerbation of COPD. There is concern for possible pneumonia and she was started on clindamycin due to penicillin and cephalosporin intolerance. She was seen by oncology who recommended holding her off opdivo therapy. There is concern for possible pneumonitis. Pulmonary was consulted and felt that her shortness of breath was likely to acute exacerbation of COPD. She was maintained on IV steroids and bronchodilators. On 12/30 her antibiotic was discontinued with thoughts that there was no underlying pneumonia. On the morning of 01/01 she developed worsening shortness of breath. Chest x-ray was done and covering physician had concerns for fluid overload. She was given 1 dose of IV Lasix and seemed to respond well. Chest x-ray was reviewed and shows possible right middle lobe infiltrate. She was started on Levaquin therapy, pulmonary added cefepime. Her duonebs were changed to scheduled. She would like a port for chemo , but will wait until her respiratory status is optimized and this will be deferred to outpatient setting. Patient seen and examined at bedside. She is feeling better today, still SOB but better. Appeitie is okay and has been eating but still losing weight. No chest pain despite erosion of several ribs. No nausea, vomiting or diarrhea. Objective - Vital Signs Vital signs: Vital Signs Temp 97.5 F L 01/02/19 12:08 Pulse 115 H 01/02/19 16:13 Resp 18 01/02/19 16:13 BP 146/76 01/02/19 12:08 Pulse Ox 98 01/02/19 12:08 Intake & Output 01/01/19 01/02/19 01/02/19 18:59 06:59 18:59 Intake Total 650 2690 1400 Balance 650 2690 1400 Weight 37.195 kg Intake: Intake, IV Titration 50 1010 200 Amount Cefepime 1 gm In Sodium 50 50 50 Chloride 0.9% 50 ml @ 100 mls/hr IVPB Q12HR [facility] Rx #:[id number] Levofloxacin 750Mg-D5w 150 Pmx 750 mg In Dextrose/ Water 1 150ml.bag @ 100 mls/hr IVPB Q24H [facility] Rx#: [id number] Sodium Chloride 0.9% 1, 960 000 ml @ 80 mls/hr IV . [id number] [facility] Rx#:[id number] Oral 600 1680 1200 Other: Voiding Method Toilet Toilet # Voids 2 2 1 # Bowel Movements 1 - Exam General: ill appearing, no distress, appears at stated age, cachetic Derm: warm, dry Head: atraumatic, normocephalic, symmetric Eyes: EOMI, no lid lag, anicteric sclera Mouth: no lip lesion, mucus membranes moist Cardiovascular: S1S2 reg, no murmur, positive posterior tibial pulse bilateral, Lungs: wheeze expiratory and rhonchi bilateral , no accessory muscle use Abdominal: soft, nontender to palpation, no guarding, no appreciable organomegaly Ext: no gross muscle atrophy, no edema, no contractures Neuro: CN II-XI grossly intact, no focal neuro deficits Psych: Alert, oriented, appropriate affect - Labs CBC & Chem 7: 01/02/19 07:18 01/02/19 07:18 Labs: Abnormal Lab Results - Last 24 Hours (Table) 01/02/19 01/02/19 Range/Units 07:18 07:18 WBC 13.1 H (3.8-10.6) k/uL RBC 3.17 L (3.80-5.40) m/uL Hgb 8.3 L (11.4-16.0) gm/dL Hct 28.1 L (34.0-46.0) % MCHC 29.6 L (31.0-37.0) g/dL RDW 17.9 H (11.5-15.5) % Chloride 110 H (98-107) mmol/L BUN 36 H (7-17) mg/dL Glucose 127 H (74-99) mg/dL Microbiology - Last 24 Hours (Table) 01/02/19 11:17 Sputum Culture - Preliminary Sputum 12/28/18 21:30 Blood Culture - Preliminary Blood No Growth after 96 hours Assessment and Plan Assessment: Acute exacerbation of COPD, possible left middle lobe pneumonia -continue with scheduled DuoNebs, prn albuterol, fometerol and budesonide -decrease solumedrol -levaquin and cefepime -Pulmonary recs appreciated Acute hypoxic respiratory failure -Treatment as above Lung cancer stage III -Discussed with oncology and would be a candidate for port, however with delay this until respiratory status is more stable -Continue outpatient follow-up with Dr. Stevens Cachexia with BMI 14.5 and failure to thrive with documented 40 pound weight loss -Dietary recommendations Anemia of chronic disease -Hemoglobin stable -Follow intermittent CBC DVT prophylaxis: lovenox Discussed with: patient, Anticipated discharge: 24-[address]: home with home health A total of 35 minutes was spent on the care of this complex patient more than 50 % of the time was spent in counseling and care coordination.
--- NOTE | 2019-01-02 17:23 | P.PN ---
Subjective Progress Note Date: 01/02/19 Principal diagnosis: COPD exacerbation, SOB, on treatment for NSCLC Increased stools overnight per patient, increased SOB with movement, otherwise she states same Objective - Vital Signs Vital signs: Vital Signs Temp 97.5 F L 01/02/19 12:08 Pulse 115 H 01/02/19 16:13 Resp 18 01/02/19 16:13 BP 146/76 01/02/19 12:08 Pulse Ox 98 01/02/19 12:08 Intake & Output 01/01/19 01/02/19 01/02/19 18:59 06:59 18:59 Intake Total 650 2690 1400 Balance 650 2690 1400 Weight 37.195 kg Intake: Intake, IV Titration 50 1010 200 Amount Cefepime 1 gm In Sodium 50 50 50 Chloride 0.9% 50 ml @ 100 mls/hr IVPB Q12HR [facility] Rx #:[id number] Levofloxacin 750Mg-D5w 150 Pmx 750 mg In Dextrose/ Water 1 150ml.bag @ 100 mls/hr IVPB Q24H [facility] Rx#: [id number] Sodium Chloride 0.9% 1, 960 000 ml @ 80 mls/hr IV . [id number] [facility] Rx#:[id number] Oral 600 1680 1200 Other: Voiding Method Toilet Toilet Toilet # Voids 2 2 1 # Bowel Movements 1 2 - Exam Constitutional General appearance: Present: cooperative, mild distress, thin - EENT Eyes: Present: EOMI ENT: Present: hearing grossly normal - Respiratory Details: respiratory effort is mildly labored, expiration>inspiration Respiratory: right: wheezing (anterior), bilateral: rhonchi (R>L) - Cardiovascular Heart sounds: normal: S1, S2 - Peripheral edema leg Peripheral Edema: bilateral: None - Gastrointestinal General gastrointestinal: Present: normal bowel sounds, soft - Integumentary Integumentary: Present: pale - Neurologic Neurologic: Present: CNII-XII intact - Musculoskeletal Musculoskeletal: Present: generalized weakness - Psychiatric Psychiatric: Present: A&O x's 3, appropriate affect, intact judgment & insight - Labs CBC & Chem 7: 01/02/19 07:18 01/02/19 07:18 Labs: Abnormal Lab Results - Last 24 Hours (Table) 01/02/19 01/02/19 Range/Units 07:18 07:18 WBC 13.1 H (3.8-10.6) k/uL RBC 3.17 L (3.80-5.40) m/uL Hgb 8.3 L (11.4-16.0) gm/dL Hct 28.1 L (34.0-46.0) % MCHC 29.6 L (31.0-37.0) g/dL RDW 17.9 H (11.5-15.5) % Chloride 110 H (98-107) mmol/L BUN 36 H (7-17) mg/dL Glucose 127 H (74-99) mg/dL Microbiology - Last 24 Hours (Table) 01/02/19 11:17 Sputum Culture - Preliminary Sputum 12/28/18 21:30 Blood Culture - Preliminary Blood No Growth after 96 hours Assessment and Plan Plan: Chest x-ray: report reviewed CT scan - chest: report reviewed Assessment and Plan Assessment: 1. Squamous cell lung cancer - On immunotherapy, Last Opdivo on 12/14/18 (Status post 6 cycles) 3. Dyspnea: - Progressive and worsening since last hospital stay and discharge - The CT did not show evidence of pneumonitis although this is a differential to consider as patient is on treatment with Opdivo, other differentials include possible post-obstructive pneumonia, possible COPD exacerbation, Plan: Ms. 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 Agree with treating a COPD exacerbation and postobstructive pneumonia. - Will Hold Opdivo until improvement in symptoms while patient is hospitalized. - Discussed with pt and she is agreeable to the plan. All questions answered. - ABX, Steroids, Pulmonary following - CT scan Abd/Pelvis will be checked today and will await imaging results - Follow-up with Dr. Stevens after discharge for treatment plan of care
[2019-01-02] MEDS: ATORVASTATIN 20 MG TAB PO SCH (21:25)
[2019-01-02] MEDS: ALPRAZolam 0.5 MG TAB PO SCH (21:26)
[2019-01-02] MEDS: MELATONIN 5 MG TABLET PO SCH (21:26)
[2019-01-02] MEDS ORDERED: LEVOFLOXACIN 750MG-D5W PMX 750 MG in DEXTROSE/WATER 1 150ML.BAG IVPB SCH (22:00)
[2019-01-03] MEDS: FORMOTEROL FUMARATE 20 MCG/2 ML NEBU INHALATION SCH ×2 (08:21→19:46)
[2019-01-03] MEDS: IPRATROPIUM-ALBUTEROL 3 ML NEB INHALATION SCH ×4 (08:21→19:46)
[2019-01-03] MEDS: BUDESONIDE 1 MG/2 ML NEBU INHALATION SCH ×2 (08:21→19:46)
[2019-01-03 08:45] LABS: Anion Gap 6 mmol/L; Blood Urea Nitrogen 27 mg/dL (7-17); Calcium 8.9 mg/dL (8.4-10.2); Carbon Dioxide 30 mmol/L (22-30); Glucose 103 mg/dL (74-99); Phosphorus 3.7 mg/dL (2.5-4.5); Potassium 4.4 mmol/L (3.5-5.1); Sodium 140 mmol/L (137-145)
[2019-01-03 08:47] LABS: Anisocytosis Slight; HCT 27.8 % (34.0-46.0); HGB 8.5 gm/dL (11.4-16.0); Hypochromasia Marked; MCH 26.3 pg (25.0-35.0); MCHC 30.5 g/dL (31.0-37.0); MCV 86.4 fL (80.0-100.0); Mean Platelet Volume 7.4; Platelet Count 320 k/uL (150-450); RBC 3.21 m/uL (3.80-5.40); RDW 18.6 % (11.5-15.5); WBC 12.5 k/uL (3.8-10.6)
[2019-01-03 08:51] LABS: Chloride 104 mmol/L (98-107)
[2019-01-03] MEDS: CYANOCOBALAMIN 500 MCG TAB PO SCH (09:44)
[2019-01-03] MEDS: CHOLECALCIFEROL 1,000 UNIT TAB PO SCH (09:44)
[2019-01-03] MEDS: guaiFENesin 600 MG TABLET.ER PO SCH ×2 (09:44→20:14)
[2019-01-03] MEDS: LORATADINE 10 MG TAB PO SCH (09:44)
[2019-01-03] MEDS: ENOXAPARIN 40 MG/0.4 ML SYRINGE SQ SCH (09:44)
[2019-01-03] MEDS: NICOTINE 14MG/24HR PATCH TRANSDERM SCH (09:44)
[2019-01-03] MEDS: CALCIUM CARBONATE 500 MG CHEWABLE PO SCH (09:44)
[2019-01-03] MEDS: CEFEPIME 1 GM in SODIUM CHLORIDE 0.9% 50 ML IVPB SCH ×2 (09:45→21:06)
[2019-01-03] MEDS: LACTOBACILLUS ACIDOPH & BULGAR 1 EACH PACKET PO SCH ×2 (09:49→20:14)
[2019-01-03] MEDS: MEGESTROL 40 MG TAB PO SCH (09:50)
[2019-01-03] MEDS: methylPREDNISolone SOD SUCCI 125 MG/2 ML VIAL IV SCH (09:59)
[2019-01-03] MEDS: predniSONE 20 MG TAB PO SCH (10:09)
--- NOTE | 2019-01-03 10:30 | CDI ---
Documentation Clarification Form Date: 01/03/2019 10:05:31 AM From: Jennifer Suggs RN, CCDS Admit Date: 12/28/2018 10:51:00 PM Patient Name: Eliana Almendarez Visit Number: [id number] Discharge Date: ATTENTION: The Clinical Documentation Specialists (CDI) and [facility] Coding Staff appreciate your assistance in clarifying documentation. Please respond to the clarification below the line at the bottom and electronically sign. The CDI & [facility] Coding staff will review the response and follow-up if needed. Please note: Queries are made part of the Legal Health Record. If you have any questions, please contact the author of this message via ITS. Dr. Tegan Womack Severe chronic malnutrition has been documented in nutritional assessment. on and 01/01/19. History/Risk Factors: Stage III lung cancer, COPD, Current every day smoker Clinical Indicators: 78 year-old female admit with shortness of breath with known history of COPD and lung cancer. The patient physical findings has her underweight, cachectic, temporal and orbital wasting. Mucous membranes dry. Labs: Albumin 3.1, Total Protein 5.9 Current BMI: 14.5 Insufficient energy intake: decreased, 50 % of meals Weight Loss: 40 pounds over past few months. Loss of subcutaneous fat: yes Loss of muscle mass: yes Treatment: Dietary Consult: Yes: diagnosis: malnutrition severe, chronic Supplements: Ensure BID General/healthful diet Lab monitoring: Monitor Intake/output In your professional opinion, can you please clarify if these findings signify one of the following conditions? Mild Protein-Calorie Malnutrition Moderate Protein-Calorie Malnutrition Severe Protein-Calorie Malnutrition Other condition, please specify Unable to determine (Last Revision: February 2018) Severe Protein-Calorie Malnutrition MTDD
--- NOTE | 2019-01-03 13:14 | P.PN ---
Subjective Progress Note Date: 01/03/19 (delayed chartin seen at 1000) Principal diagnosis: Shortness of breath Patient is a 78-year-old female with past medical history of stage III lung cancer on immunotherapy with opdivo, COPD, and dyslipidemia who presented to the emergency department with complaints of worsening shortness of breath and cough. In the ER she underwent an extensive evaluation. CT of the chest showed cavitary right upper lobe malignancy with chest wall invasion, this is known to the patient. Initial laboratory analysis was consistent with her known anemia, was otherwise unremarkable. Influenza was negative. She was started on DuoNeb's and bronchodilators for possible acute exacerbation of COPD. There is concern for possible pneumonia and she was started on clindamycin due to penicillin and cephalosporin intolerance. She was seen by oncology who recommended holding her off opdivo therapy. There is concern for possible pneumonitis. Pulmonary was consulted and felt that her shortness of breath was likely to acute exacerbation of COPD. She was maintained on IV steroids and bronchodilators. On 12/30 her antibiotic was discontinued with thoughts that there was no underlying pneumonia. On the morning of 01/01 she developed worsening shortness of breath. Chest x-ray was done and covering physician had concerns for fluid overload. She was given 1 dose of IV Lasix and seemed to respond well. Chest x-ray was reviewed and shows possible right middle lobe infiltrate. She was started on Levaquin therapy, pulmonary added cefepime. Her duonebs were changed to scheduled. She had quick improvement in her respiratory status with her change in ABX. She elected to have PICC placed for chemo access. She will have home health with palliative care. Patient seen and examined at bedside. Feeling good today. Breathing much improved. Cough now productive. No nausea, vomiting, diarrhea, no pain. Objective - Vital Signs Vital signs: Vital Signs Temp 97.5 F L 01/03/19 04:26 Pulse 112 H 01/03/19 08:45 Resp 18 01/03/19 04:26 BP 127/80 01/03/19 04:26 Pulse Ox 94 L 01/03/19 08:21 Intake & Output 01/02/19 01/03/19 01/03/19 18:59 06:59 18:59 Intake Total 1400 200 720 Balance 1400 200 720 Intake: Intake, IV Titration 200 200 Amount Cefepime 1 gm In Sodium 50 50 Chloride 0.9% 50 ml @ 100 mls/hr IVPB Q12HR [facility] Rx #:[id number] Levofloxacin 750Mg-D5w 150 150 Pmx 750 mg In Dextrose/ Water 1 150ml.bag @ 100 mls/hr IVPB Q24H [facility] Rx#: [id number] Oral 1200 720 Other: Voiding Method Toilet Bedside Commode # Voids 1 3 # Bowel Movements 2 - Exam General: ill appearing, no distress, appears at stated age, cachetic Derm: warm, dry Head: atraumatic, normocephalic, symmetric Eyes: EOMI, no lid lag, anicteric sclera Mouth: no lip lesion, mucus membranes moist Cardiovascular: S1S2 reg, no murmur, positive posterior tibial pulse bilateral, Lungs: Rhonchi right , no accessory muscle use Abdominal: soft, nontender to palpation, no guarding, no appreciable organomegaly Ext: no gross muscle atrophy, no edema, no contractures Neuro: CN II-XI grossly intact, no focal neuro deficits Psych: Alert, oriented, appropriate affect - Labs CBC & Chem 7: 01/03/19 07:47 01/03/19 07:47 Labs: Abnormal Lab Results - Last 24 Hours (Table) 01/03/19 01/03/19 Range/Units 07:47 07:47 WBC 12.5 H (3.8-10.6) k/uL RBC 3.21 L (3.80-5.40) m/uL Hgb 8.5 L (11.4-16.0) gm/dL Hct 27.8 L (34.0-46.0) % MCHC 30.5 L (31.0-37.0) g/dL RDW 18.6 H (11.5-15.5) % BUN 27 H (7-17) mg/dL Glucose 103 H (74-99) mg/dL Microbiology - Last 24 Hours (Table) 12/28/18 21:30 Blood Culture - Preliminary Blood No Growth after 120 hours 01/02/19 11:17 Gram Stain - Preliminary Sputum Sputum Culture - Preliminary Assessment and Plan Assessment: Acute exacerbation of COPD, possible left middle lobe pneumonia -continue with scheduled DuoNebs, prn albuterol, fometerol and budesonide -change solumedrol to prednisone -levaquin and cefepime -Pulmonary recs appreciated Acute hypoxic respiratory failure -Treatment as above Lung cancer stage III -PICC line as patient reluctant for prot at this time - palliative care and home care on discharge. -Continue outpatient follow-up with Dr. Stevens Severe protein calorie malnutrition, Cachexia with BMI 14.5 and failure to thrive with documented 40 pound weight loss -Dietary recommendations - supplements Anemia of chronic disease -Hemoglobin stable -Follow intermittent CBC Plan is home in AM if able to tolerate oral steroids and WBC improves. DVT prophylaxis: lovenox Discussed with: patient, nursing, Dr. Vegas, Trixie Collins [employer] Anticipated discharge: [address]: home with home health and palliative care A total of 35 minutes was spent on the care of this complex patient more than 50 % of the time was spent in counseling and care coordination.
--- NOTE | 2019-01-03 16:44 | P.PN ---
Subjective Progress Note Date: 01/03/19 Principal diagnosis: COPD exacerbation, SOB, on treatment for NSCLC F/U today pt states feeling better, she is sitting up at bedside independently, she ate today, denies fever, nausea, diarrhea or constipation, pain or bleeding Objective - Vital Signs Vital signs: Vital Signs Temp 98.9 F 01/03/19 12:03 Pulse 112 H 01/03/19 16:18 Resp 20 01/03/19 16:18 BP 116/56 01/03/19 12:03 Pulse Ox 97 01/03/19 16:18 Intake & Output 01/02/19 01/03/19 01/03/19 18:59 06:59 18:59 Intake Total 1400 200 720 Balance 1400 200 720 Intake: Intake, IV Titration 200 200 Amount Cefepime 1 gm In Sodium 50 50 Chloride 0.9% 50 ml @ 100 mls/hr IVPB Q12HR [facility] Rx #:[id number] Levofloxacin 750Mg-D5w 150 150 Pmx 750 mg In Dextrose/ Water 1 150ml.bag @ 100 mls/hr IVPB Q24H [facility] Rx#: [id number] Oral 1200 720 Other: Voiding Method Toilet Bedside Commode Bedside Commode # Voids 1 3 # Bowel Movements 2 - Constitutional General appearance: Present: cooperative, no acute distress, thin - EENT Eyes: Present: anicteric sclerae, EOMI ENT: Present: hearing grossly normal - Respiratory Respiratory: bilateral: diminished - Cardiovascular Heart sounds: normal: S1, S2 Abnormal Heart Sounds: Absent: systolic murmur, diastolic murmur, rub, S3 Gallop , S4 Gallop, click, other - Peripheral edema leg Peripheral Edema: bilateral: None - Gastrointestinal General gastrointestinal: Present: normal bowel sounds, soft - Neurologic Neurologic: Present: CNII-XII intact - Musculoskeletal Musculoskeletal: Present: generalized weakness, strength equal bilaterally - Psychiatric Psychiatric: Present: A&O x's 3, appropriate affect, intact judgment & insight - Labs CBC & Chem 7: 01/03/19 07:47 01/03/19 07:47 Labs: Abnormal Lab Results - Last 24 Hours (Table) 01/03/19 01/03/19 Range/Units 07:47 07:47 WBC 12.5 H (3.8-10.6) k/uL RBC 3.21 L (3.80-5.40) m/uL Hgb 8.5 L (11.4-16.0) gm/dL Hct 27.8 L (34.0-46.0) % MCHC 30.5 L (31.0-37.0) g/dL RDW 18.6 H (11.5-15.5) % BUN 27 H (7-17) mg/dL Glucose 103 H (74-99) mg/dL Microbiology - Last 24 Hours (Table) 12/28/18 21:30 Blood Culture - Preliminary Blood No Growth after 120 hours 01/02/19 11:17 Gram Stain - Preliminary Sputum Sputum Culture - Preliminary - Imaging and Cardiology CT scan - abdomen: report reviewed CT scan - pelvis: report reviewed Assessment and Plan (1) Adenocarcinoma, lung Narrative/Plan: Pt is currently s/p 5 cycles of nivolumab with decent tolerance overall. Pt was due for treatment f/u scans, this has been competed. She has f/u shced with her primary Oncologist next week. Further treatment plans will be discussed then. PICC was ordered for peripheral access and is going to be inserted today. Current Visit: Yes Status: Chronic Priority: Medium Code(s): C34.90 - MALIGNANT NEOPLASM OF UNSP PART OF UNSP BRONCHUS OR LUNG SNOMED Code(s): 405653471 (2) Acute exacerbation of chronic obstructive airways disease Narrative/Plan: Being treated for the same, symptoms better today. Cont treatment per Pulmonary Current Visit: Yes Status: Acute Priority: High Code(s): J44.1 - CHRONIC OBSTRUCTIVE PULMONARY DISEASE W (ACUTE) EXACERBATION SNOMED Code(s): 677221299 (3) Chronic anemia Narrative/Plan: No results re: iron studies, will reorder Current Visit: Yes Status: Chronic Priority: Medium Code(s): D64.9 - ANEMIA, UNSPECIFIED SNOMED Code(s): 114347187 Plan: Attests: I have performed H&P and developed impression and plan of care of patient, discussed with dictator. I agree with dictated note, documented as a scribe.
--- NOTE | 2019-01-03 19:34 | P.PN ---
Subjective Progress Note Date: 01/03/19 On today's evaluation of 01/03/2019, I'm seeing this patient for a follow-up. I 'm pleased to report that clinic. Patient doing much better. At one point I was considering to do a bronchoscopy. However, based on the progress that I'm seeing, I think the patient is doing much better and we can postpone the procedure for now. Her cough and congestion and shortness of breath and wheezing has improved. She remains on a combination of cefepime and Levaquin. She remains on IV Solu-Medrol. She remains also on nebulized bronchodilators. No nausea. No vomiting. No altered mentation. No weight loss. Her white cell count is at 12.5. Creatinine is at 0.7 stable. The sputum was sent for analysis and if still pending. Blood cultures were negative for now. Objective - Vital Signs Vital signs: Vital Signs Temp 96.1 F L 01/03/19 16:45 Pulse 108 H 01/03/19 16:45 Resp 24 01/03/19 16:45 BP 117/57 01/03/19 16:45 Pulse Ox 98 01/03/19 16:45 Intake & Output 01/03/19 01/03/19 01/04/19 06:59 18:59 06:59 Intake Total 200 1870 Balance 200 1870 Intake: Intake, IV Titration 200 50 Amount Cefepime 1 gm In Sodium 50 50 Chloride 0.9% 50 ml @ 100 mls/hr IVPB Q12HR [facility] Rx #:[id number] Levofloxacin 750Mg-D5w 150 Pmx 750 mg In Dextrose/ Water 1 150ml.bag @ 100 mls/hr IVPB Q24H [facility] Rx#: [id number] Oral 1820 Other: Voiding Method Bedside Commode Bedside Commode # Voids 3 4 - Exam GENERAL EXAM: Alert, active, comfortable in no apparent distress. HEAD: Normocephalic/atraumatic. EYES: Normal reaction of pupils, equal size. Conjunctiva pink, sclera white. NOSE: Clear with pink turbinates. THROAT: No erythema or exudates. NECK: No masses, no JVD, no thyroid enlargement, no adenopathy. CHEST: No chest wall deformity. Symmetrical expansion. LUNGS: Equal air entry with diminished breath sounds diffuse wheezes and rhonchi CVS: Regular rate and rhythm, normal S1 and S2, no gallops, no murmurs, no rubs ABDOMEN: Soft, nontender. No hepatosplenomegaly, normal bowel sounds, no guarding or rigidity. EXTREMITIES: No clubbing, no edema, no cyanosis, 2+ pulses and upper and lower extremities. MUSCULOSKELETAL: Muscle strength and tone normal. SPINE: No scoliosis or deformity SKIN: No rashes CENTRAL NERVOUS SYSTEM: Alert and oriented -3. No focal deficits, tone is normal in all 4 extremities. PSYCHIATRIC: Alert and oriented -3. Appropriate affect. Intact judgment and insight. - Labs CBC & Chem 7: 01/03/19 07:47 01/03/19 07:47 Labs: Abnormal Lab Results - Last 24 Hours (Table) 01/03/19 01/03/19 Range/Units 07:47 07:47 WBC 12.5 H (3.8-10.6) k/uL RBC 3.21 L (3.80-5.40) m/uL Hgb 8.5 L (11.4-16.0) gm/dL Hct 27.8 L (34.0-46.0) % MCHC 30.5 L (31.0-37.0) g/dL RDW 18.6 H (11.5-15.5) % BUN 27 H (7-17) mg/dL Glucose 103 H (74-99) mg/dL Microbiology - Last 24 Hours (Table) 12/28/18 21:30 Blood Culture - Preliminary Blood No Growth after 120 hours 01/02/19 11:17 Gram Stain - Preliminary Sputum Sputum Culture - Preliminary Assessment and Plan Plan: Assessment 1 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 CAT scan of the chest was reviewed and there is a cavitating right upper lobe mass with surrounding consolidation. This could be combination of tumor progression with squamous cell carcinoma in addition to a superimposed right upper lobe pneumonia 2 COPD exacerbation secondary to above, clinically improving with an aggressive bronchodilator antibiotic and steroid regimen. 3 acute hypoxic respiratory failure secondary to above 4 cachexia with a BMI of 14.5 5 anemia of chronic disease Plan Into the current antibiotic coverage. The patient on cefepime. The patient on Levaquin. The patient IV Solu Medrol. The patient is on Mucinex. The patient is also on DuoNeb nebulized treatments around the clock. The patient is on a combination of Pulmicort and Perforomist nebulized treatments twice a day. Monitor for bronchoscopy as long as the patient is showing signs of improvement. Long-term prognosis poor knowing that CAT scan of the chest is showing a cavitating squamous cell carcinoma with seems to have somewhat progressed in addition to a superimposed pneumonia in the right upper lobe. No other significant issues for now. Dietary advice was given. Encourage ambulation. We'll continue to follow.
[2019-01-03] MEDS: ATORVASTATIN 20 MG TAB PO SCH (20:14)
[2019-01-03] MEDS: MELATONIN 5 MG TABLET PO SCH (20:14)
[2019-01-03] MEDS: ALPRAZolam 0.5 MG TAB PO SCH (20:14)
[2019-01-03] MEDS: LEVOFLOXACIN 750 MG TAB PO SCH (21:05)
[2019-01-04] MEDS: CEFEPIME 1 GM in SODIUM CHLORIDE 0.9% 50 ML IVPB SCH ×2 (07:23→21:22)
[2019-01-04 08:04] LABS: Anisocytosis Slight; HCT 26.6 % (34.0-46.0); HGB 7.7 gm/dL (11.4-16.0); Hypochromasia Marked; MCH 25.2 pg (25.0-35.0); MCHC 28.8 g/dL (31.0-37.0); MCV 87.6 fL (80.0-100.0); Mean Platelet Volume 7.8; Platelet Count 272 k/uL (150-450); RBC 3.03 m/uL (3.80-5.40); RDW 19.5 % (11.5-15.5); WBC 14.1 k/uL (3.8-10.6)
[2019-01-04 08:26] LABS: Anion Gap 4 mmol/L; Blood Urea Nitrogen 27 mg/dL (7-17); Calcium 8.6 mg/dL (8.4-10.2); Carbon Dioxide 31 mmol/L (22-30); Chloride 107 mmol/L (98-107); Glucose 83 mg/dL (74-99); Potassium 4.6 mmol/L (3.5-5.1); Sodium 142 mmol/L (137-145)
[2019-01-04] MEDS ORDERED: LIDOCAINE 2% INJ 20 MG/ML SQ ONE (09:41)
[2019-01-04] MEDS: BUDESONIDE 1 MG/2 ML NEBU INHALATION SCH ×2 (10:08→20:41)
[2019-01-04] MEDS: IPRATROPIUM-ALBUTEROL 3 ML NEB INHALATION SCH ×4 (10:08→20:41)
[2019-01-04] MEDS: FORMOTEROL FUMARATE 20 MCG/2 ML NEBU INHALATION SCH ×2 (10:08→20:41)
[2019-01-04] MEDS: CYANOCOBALAMIN 500 MCG TAB PO SCH (11:00)
[2019-01-04] MEDS: predniSONE 20 MG TAB PO SCH (11:01)
[2019-01-04] MEDS: guaiFENesin 600 MG TABLET.ER PO SCH ×2 (11:01→21:22)
[2019-01-04] MEDS: CHOLECALCIFEROL 1,000 UNIT TAB PO SCH (11:03)
[2019-01-04] MEDS: MEGESTROL 40 MG TAB PO SCH (11:03)
[2019-01-04] MEDS: LACTOBACILLUS ACIDOPH & BULGAR 1 EACH PACKET PO SCH ×2 (11:04→21:23)
[2019-01-04] MEDS: LORATADINE 10 MG TAB PO SCH (11:04)
[2019-01-04] MEDS: CALCIUM CARBONATE 500 MG CHEWABLE PO SCH (11:04)
[2019-01-04] MEDS: NICOTINE 14MG/24HR PATCH TRANSDERM SCH (11:05)
[2019-01-04] MEDS: ENOXAPARIN 40 MG/0.4 ML SYRINGE SQ SCH (11:09)
[2019-01-04] MEDS ORDERED: METOPROLOL TARTRATE 12.5 MG TAB PO SCH (14:30)
[2019-01-04 14:31] LABS: T4, Free (Free Thyroxine) 1.51 ng/dL (0.78-2.19)
--- NOTE | 2019-01-04 14:32 | P.CRDCN ---
History of Present Illness History of present illness: This is a pleasant 78-year-old female past medical history significant for stage III squamous cell lung cancer currently undergoing chemotherapy, dyslipidemia, COPD and chronic nicotine dependence. She denies history of hypertension or coronary artery disease and is never seen a model builder for any reason. She is currently admitted into the hospital secondary to an acute exacerbation of COPD as well as pneumonia. We have been asked to see her in consultation secondary to persistent tachycardia. Telemetry tracings reviewed and reveal persistent sustained sinus tachycardia heart rate fluctuating between low 100s-125. She denies feelings of palpitations, dizziness, chest pain, nausea or diaphoresis. At baseline she is significantly short of breath and states this has been increased lately. She is coughing as well. It is questionable on the CAT scan whether there is progression of her's, cell carcinoma in addition to superimposed pneumonia in the right upper lobe. She is currently maintained on IV antibiotics, oral steroids, updraft treatments and inhalers. EKG on arrival reveals sinus tachycardia with nonspecific ST abnormalities. No acute changes. Most recent chest x-ray obtained January 02 reveals cavitary right upper lobe lung mass. Laboratory data reviewed, WBC 14.1, hemoglobin 7.7, platelets 272, sodium 142, potassium 4.6, creatinine 0.49, magnesium 2.0. Current cardiac medications include simvastatin 40 mg daily. At the time of my exam: CONSTITUTIONAL: Denies fever. Denies chills. EYES: Denies blurred vision. Denies vision changes. Denies eye pain. EARS, NOSE, MOUTH & THROAT: Denies headache. Denies sore throat. Denies ear pain. CARDIOVASCULAR: Denies chest pain. Complains of shortness of breath. Denies orthopnea. Denies PND. Denies palpitations. RESPIRATORY: Complains of cough. GASTROINTESTINAL: Denies abdominal pain. Denies diarrhea. Denies constipation. Denies nausea. Denies vomiting. MUSCULOSKELETAL: Denies myalgias. INTEGUMENTARY: Denies pruitis. Denies rash. NEUROLOGIC: Denies numbness. Denies tingling. Denies weakness. PSYCHIATRIC: Denies anxiety. Denies depression. ENDOCRINE: Denies fatigue. Denies weight change. Denies polydipsia. Denies polyurina. GENITOURINARY: Denies burning, hematuria or urgency with micturation. HEMATOLOGIC: Denies history of anemia. Denies bleeding. Blood pressure 117/70 heart rate 112 afebrile maintaining oxygen saturation on nasal cannula GENERAL: This is a 78-year-old female in no apparent distress at the time of my examination. Frail. HEENT: Head is atraumatic, normocephalic. Pupils are equal, round. Sclerae anicteric. Conjunctivae are clear. Mucous membranes of the mouth are moist. Neck is supple. There is no jugular venous distention. No carotid bruit is heard. LUNGS: Coarse rhonchi noted throughout worse on expiration. No wheezes or rales. No chest wall tenderness is noted on palpation or with deep breathing. HEART: Regular rate and rhythm without murmurs, rubs or gallops. S1 and S2 heard. ABDOMEN: Soft, nontender. Bowel sounds are heard. No organomegaly noted. EXTREMITIES: No evidence of peripheral edema and no calf tenderness noted. VASCULAR: Radial and dorsalis pedis pulses palpated, no evidence of clubbing. NEUROLOGIC: Patient is awake, alert and oriented x3. ASSESSMENT Advanced, cell carcinoma of the right lower lobe with superimposed right upper lobe pneumonia Acute exacerbation of COPD being treated aggressively with bronchodilator antibiotic and steroids Sinus tachycardia Leukocytosis Dyslipidemia Cachexia, BMI 14.5 PLAN Obtain 2-D echocardiogram and Doppler study to assess cardiac structure and function. Check thyroid function. Add on small dose of beta dawood, metoprolol 12.5 mg twice a day. Further recommendations to follow based upon clinical course. Thank you kindly for this consultation. The above impression and plan of care have been discussed and directed by the signing physician. Dominique Whitmore, nurse practitioner, acting as scribe for signing physician. Past Medical History Past Medical History: Cancer, COPD, Hyperlipidemia, Osteoarthritis (OA), Respiratory Disorder Additional Past Medical History / Comment(s): - fracture ribs rt, emphysema, Lung cancer History of Any Multi-Drug Resistant Organisms: None Reported Past Surgical History: Breast Surgery, Tonsillectomy, Tubal Ligation Additional Past Surgical History / Comment(s): LEFT MASTECOMY benign . LEFT FOOT FX .LEFT RIBS FX. LEFT TOES FX Past Anesthesia/Blood Transfusion Reactions: No Reported Reaction Past Psychological History: No Psychological Hx Reported Smoking Status: Current every day smoker Past Alcohol Use History: None Reported Past Drug Use History: None Reported - Past Family History Mother Family Medical History: Cancer Additional Family Medical History / Comment(s): breast Father Family Medical History: Cancer Medications and Allergies Home Medications Medication Instructions Recorded Confirmed Type Lutein 20 mg PO DAILY 02/03/17 12/28/18 History Simvastatin [Zocor] 40 mg PO HS 02/03/17 12/28/18 History Albuterol Inhaler [Ventolin Hfa 2 puff INHALATION RT-Q6H PRN 11/01/17 12/28/18 History Inhaler] Calcium Carbonate [Calcium] 600 mg PO DAILY 11/01/17 12/28/18 History Cholecalciferol [Vitamin D3] 1,000 unit PO DAILY 11/01/17 12/28/18 History Loratadine [Claritin] 10 mg PO DAILY 11/01/17 12/28/18 History Hydrocodone/Acetaminophen [Surprise 1 tab PO Q6HR PRN 01/27/18 12/28/18 History 5-325] Cyanocobalamin [Vitamin B-12] 500 mcg PO DAILY 12/28/18 12/28/18 History Fluticasone/Vilanterol [Breo 1 puff INHALATION RT-DAILY 12/28/18 12/28/18 History Ellipta 200-25 Mcg INH] Megestrol [Megace] 40 mg PO DAILY 12/28/18 12/28/18 History Allergies Allergy/AdvReac Type Severity Reaction Status Date / Time amoxicillin [From Augmentin] Allergy Diarrhea Verified 12/29/18 00:47 cefaclor [From Ceclor] Allergy Diarrhea Verified 12/29/18 00:47 clarithromycin [From Biaxin] Allergy Diarrhea Verified 12/29/18 00:47 clavulanic acid Allergy Diarrhea Verified 12/29/18 00:47 [From Augmentin] codeine AdvReac Nausea & Verified 12/28/18 20:40 Vomiting & Diarrhea Physical Exam Vitals: Vital Signs Temp Pulse Pulse Pulse Resp BP BP 01/04/19 12:19 112 H 01/04/19 12:09 108 H 01/04/19 11:22 97.4 F L 98 15 117/70 01/04/19 10:29 122 H 01/04/19 10:19 122 H 01/04/19 10:18 122 H 01/04/19 10:08 122 H 01/04/19 07:49 97.7 F 100 15 136/76 01/04/19 04:56 97.4 F L 103 H 16 124/81 01/04/19 04:55 97.4 F L 103 H 16 124/81 01/04/19 00:00 100 18 01/03/19 20:28 97.4 F L 103 H 18 144/76 01/03/19 20:00 110 H 01/03/19 19:53 107 H 01/03/19 19:46 110 H 01/03/19 16:45 96.1 F L 108 H 24 117/57 01/03/19 16:18 112 H 20 01/03/19 16:00 108 H 20 Pulse Ox 01/04/19 12:19 01/04/19 12:09 01/04/19 11:22 01/04/19 10:29 01/04/19 10:19 01/04/19 10:18 01/04/19 10:08 01/04/19 07:49 98 01/04/19 04:56 96 01/04/19 04:55 96 01/04/19 00:00 01/03/19 20:28 97 01/03/19 20:00 01/03/19 19:53 01/03/19 19:46 01/03/19 16:45 98 01/03/19 16:18 97 01/03/19 16:00 Intake and Output 01/03/19 01/04/19 01/04/19 22:59 06:59 14:59 Intake Total 530 690 Balance 530 690 Intake: Intake, IV Titration 50 Amount Cefepime 1 gm In Sodium 50 Chloride 0.9% 50 ml @ 100 mls/hr IVPB Q12HR [facility] Rx #:[id number] Oral [id number] Other: Voiding Method Bedside Commode Bedside Commode # Voids 2 1 3 # Bowel Movements 1 Results 01/04/19 06:49 01/04/19 06:49 CBC 01/04/19 Range/Units 06:49 WBC 14.1 H (3.8-10.6) k/uL RBC 3.03 L (3.80-5.40) m/uL Hgb 7.7 L (11.4-16.0) gm/dL Hct 26.6 L (34.0-46.0) % Plt Count 272 (150-450) k/uL Comprehensive Metabolic Panel 01/04/19 Range/Units 06:49 Sodium 142 (137-145) mmol/L Potassium 4.6 (3.5-5.1) mmol/L Chloride 107 (98-107) mmol/L Carbon Dioxide 31 H (22-30) mmol/L BUN 27 H (7-17) mg/dL Creatinine 0.49 L (0.52-1.04) mg/dL Glucose 83 (74-99) mg/dL Calcium 8.6 (8.4-10.2) mg/dL Current Medications Generic Name Dose Route Start Last Admin Trade Name Freq PRN Reason Stop Dose Admin Hydrocodone Bitart/Acetaminophen 1 each 12/28/18 22:56 Surprise 5-325 PO Q6HR PRN Pain Albuterol Sulfate 2.5 mg 01/01/19 10:52 Ventolin Nebulized INHALATION RT-QID PRN Shortness Of Breath Or Wheezing Albuterol/Ipratropium 3 ml 01/01/19 12:00 01/04/19 12:08 Duoneb 0.5 Mg-3 Mg/3 Ml Soln INHALATION 3 ml RT-QID TROY Administration Alprazolam 0.5 mg 12/31/18 22:48 01/02/19 09:09 Xanax PO 0.5 mg TID PRN Administration Anxiety Alprazolam 0.5 mg 01/02/19 21:00 01/03/19 20:14 Xanax PO 0.5 mg HS TROY Administration Atorvastatin Calcium 20 mg 12/29/18 21:00 01/03/19 20:14 Lipitor PO 20 mg HS TROY Administration Benzocaine/Menthol 1 each 12/31/18 18:43 Cepacol Lozenge MUCOUS MEM Q6HR PRN Cough Bisacodyl 10 mg 12/30/18 15:50 12/30/18 16:02 Dulcolax PO 10 mg DAILY PRN Administration Constipation Budesonide 1 mg 12/29/18 20:00 01/04/19 10:08 Pulmicort INHALATION 1 mg RT-BID TROY Administration Calcium Carbonate/Glycine 500 mg 12/29/18 09:00 01/04/19 11:04 Tums PO 500 mg DAILY TROY Administration Cholecalciferol 1,000 unit 12/29/18 09:00 01/04/19 11:03 Vitamin D3 PO 1,000 unit DAILY TROY Administration Cyanocobalamin 500 mcg 12/29/18 09:00 01/04/19 11:00 Vitamin B-12 PO 500 mcg DAILY TROY Administration Enoxaparin Sodium 40 mg 01/02/19 09:00 01/04/19 11:09 Lovenox SQ 40 mg DAILY TROY Administration Formoterol Fumarate 20 mcg 12/29/18 20:00 01/04/19 10:08 Perforomist INHALATION 20 mcg RT-BID TROY Administration Guaifenesin 600 mg 01/01/19 10:45 01/04/19 11:01 Mucinex PO 600 mg Q12HR TROY Administration Cefepime HCl 1 gm/ Sodium 50 mls @ 100 mls/hr 01/01/19 11:45 01/04/19 07:23 Chloride IVPB 100 mls/hr Q12HR TROY Administration Lactobacillus Acidoph/Bulgaricus 1 each 01/01/19 21:00 01/04/19 11:04 Lactinex PO 1 each BID TROY Administration Levofloxacin 750 mg 01/03/19 22:00 01/03/19 21:05 Levaquin PO 750 mg Q24H TROY Administration Loratadine 10 mg 12/29/18 09:00 01/04/19 11:04 Claritin PO 10 mg DAILY TROY Administration Megestrol Acetate 40 mg 12/29/18 09:00 01/04/19 11:03 Megace PO 40 mg DAILY TROY Administration Melatonin 5 mg 01/02/19 21:00 01/03/19 20:14 Melatonin PO 5 mg HS TROY Administration Nicotine 1 patch 12/30/18 13:00 01/04/19 11:05 Habitrol 14mg/24hr Patch TRANSDERM 1 patch DAILY TROY Administration Prednisone 60 mg 01/03/19 09:45 01/04/19 11:01 PO 60 mg DAILY TROY Administration Intake and Output 01/03/19 01/04/19 01/04/19 22:59 06:59 14:59 Intake Total 530 690 Balance 530 690 Intake: Intake, IV Titration 50 Amount Cefepime 1 gm In Sodium 50 Chloride 0.9% 50 ml @ 100 mls/hr IVPB Q12HR [facility] Rx #:[id number] Oral [id number] Other: Voiding Method Bedside Commode Bedside Commode # Voids 2 1 3 # Bowel Movements 1 01/04/19 06:49 01/04/19 06:49
--- NOTE | 2019-01-04 15:11 | P.PN ---
Subjective Progress Note Date: 01/04/19 Principal diagnosis: Patient is a 78-year-old female with past medical history of stage III lung cancer on immunotherapy with opdivo, COPD, and dyslipidemia who presented to the emergency department with complaints of worsening shortness of breath and cough. In the ER she underwent an extensive evaluation. CT of the chest showed cavitary right upper lobe malignancy with chest wall invasion, this is known to the patient. Initial laboratory analysis was consistent with her known anemia, was otherwise unremarkable. Influenza was negative. She was started on DuoNeb's and bronchodilators for possible acute exacerbation of COPD. There is concern for possible pneumonia and she was started on clindamycin due to penicillin and cephalosporin intolerance. She was seen by oncology who recommended holding her off opdivo therapy. There is concern for possible pneumonitis. Pulmonary was consulted and felt that her shortness of breath was likely to acute exacerbation of COPD. She was maintained on IV steroids and bronchodilators. On 12/30 her antibiotic was discontinued with thoughts that there was no underlying pneumonia. On the morning of 01/01 she developed worsening shortness of breath. Chest x-ray was done and covering physician had concerns for fluid overload. She was given 1 dose of IV Lasix and seemed to respond well. Chest x-ray was reviewed and shows possible right middle lobe infiltrate. She was started on Levaquin therapy, pulmonary added cefepime. Her duonebs were changed to scheduled. She had quick improvement in her respiratory status with her change in ABX. She elected to have PICC placed for chemo access. She will have home health with palliative care Patient feeling better but reports that she is not quite ready to go home reportedly previously wearing 2 L nasal cannula at night. Continues to have chest congestion, review of vitals indicates ongoing tachycardia. Patient afebrile events overnight Objective - Vital Signs Vital signs: Vital Signs Temp 97.4 F L 01/04/19 11:22 Pulse 112 H 01/04/19 12:19 Resp 15 01/04/19 11:22 BP 117/70 01/04/19 11:22 Pulse Ox 98 01/04/19 07:49 Intake & Output 01/03/19 01/04/19 01/04/19 18:59 06:59 18:59 Intake Total 1870 740 Balance 1870 740 Intake: Intake, IV Titration 50 50 Amount Cefepime 1 gm In Sodium 50 50 Chloride 0.9% 50 ml @ 100 mls/hr IVPB Q12HR [facility] Rx #:[id number] Oral [id number] Other: Voiding Method Bedside Commode Bedside Commode # Voids 4 1 3 # Bowel Movements 1 - Exam General: ill appearing, no distress, appears at stated age, cachetic Derm: warm, dry Head: atraumatic, normocephalic, symmetric Eyes: EOMI, no lid lag, anicteric sclera Mouth: no lip lesion, mucus membranes moist Cardiovascular: S1S2 reg, no murmur, positive posterior tibial pulse bilateral, Lungs: Rhonchi right , no accessory muscle use Abdominal: soft, nontender to palpation, no guarding, no appreciable organomegaly Ext: no gross muscle atrophy, no edema, no contractures Neuro: CN II-XI grossly intact, no focal neuro deficits Psych: Alert, oriented, appropriate affect - Labs CBC & Chem 7: 01/04/19 06:49 01/04/19 06:49 Labs: Abnormal Lab Results - Last 24 Hours (Table) 01/03/19 01/04/19 01/04/19 Range/Units 07:47 06:49 06:49 WBC 14.1 H (3.8-10.6) k/uL RBC 3.03 L (3.80-5.40) m/uL Hgb 7.7 L (11.4-16.0) gm/dL Hct 26.6 L (34.0-46.0) % MCHC 28.8 L (31.0-37.0) g/dL RDW 19.5 H (11.5-15.5) % Carbon Dioxide 31 H (22-30) mmol/L BUN 27 H (7-17) mg/dL Creatinine 0.49 L (0.52-1.04) mg/dL TSH (0.465-4.680) mIU/L Free T3 pg/mL 2.0 L (2.8-5.3) pg/ml 01/04/19 Range/Units 06:49 WBC (3.8-10.6) k/uL RBC (3.80-5.40) m/uL Hgb (11.4-16.0) gm/dL Hct (34.0-46.0) % MCHC (31.0-37.0) g/dL RDW (11.5-15.5) % Carbon Dioxide (22-30) mmol/L BUN (7-17) mg/dL Creatinine (0.52-1.04) mg/dL TSH 0.049 L (0.465-4.680) mIU/L Free T3 pg/mL (2.8-5.3) pg/ml Microbiology - Last 24 Hours (Table) 01/02/19 11:17 Gram Stain - Final Sputum Sputum Culture - Final 12/28/18 21:30 Blood Culture - Final Blood No Growth after 144 hours Assessment and Plan Plan: Acute exacerbation of COPD, possible left middle lobe pneumonia -continue with scheduled DuoNebs, prn albuterol, fometerol and budesonide -change solumedrol to prednisone -levaquin and cefepime -Pulmonary recs appreciated Acute hypoxic respiratory failure -Treatment as above Lung cancer stage III -PICC line as patient reluctant for prot at this time - palliative care and home care on discharge. -Continue outpatient follow-up with Dr. Stevens Severe protein calorie malnutrition, Cachexia with BMI 14.5 and failure to thrive with documented 40 pound weight loss -Dietary recommendations - supplements Sinus tachycardia * Likely secondary to ongoing lung disease COPD stage III lung cancer * Echocardiogram ordered we'll follow up results * Initiated on metoprolol by cardiology Anemia of chronic disease -Hemoglobin stable -Follow intermittent CBC Plan is home in AM if able to tolerate oral steroids and WBC improves.
--- NOTE | 2019-01-04 15:42 | P.PN ---
Subjective Progress Note Date: 01/04/19 Principal diagnosis: Acute exacerbation of chronic hypoxemic respiratory failure secondary to severe chronic obstructive pulmonary disease. The patient is seen again today 01/04/2019 in follow-up on the regular medical floor. She is currently sitting up in a chair at the bedside. She is awake and alert in no acute distress. She continues with a loose nonproductive cough. No chills or night sweats. He is maintaining O2 saturations in the upper 90s on room air. She's been afebrile. Hemodynamically stable. Sputum and blood cultures reveal no growth. White count 14.1. Hemoglobin 7.7. Creatinine 0.49. She remains on DuoNeb neb inhalations, Pulmicort and Perforomist inhalations, prednisone, antibiotics in the form of Levaquin. Habitrol patch is in place. Objective - Vital Signs Vital signs: Vital Signs Temp 97.4 F L 01/04/19 11:22 Pulse 112 H 01/04/19 12:19 Resp 15 01/04/19 11:22 BP 117/70 01/04/19 11:22 Pulse Ox 98 01/04/19 07:49 Intake & Output 01/03/19 01/04/19 01/04/19 18:59 06:59 18:59 Intake Total 1870 740 Balance 1870 740 Intake: Intake, IV Titration 50 50 Amount Cefepime 1 gm In Sodium 50 50 Chloride 0.9% 50 ml @ 100 mls/hr IVPB Q12HR [facility] Rx #:[id number] Oral [id number] Other: Voiding Method Bedside Commode Bedside Commode # Voids 4 1 3 # Bowel Movements 1 - Exam GENERAL EXAM: Frail, cachecti. Alert, active, comfortable in no apparent distress. On room air HEAD: Normocephalic. EYES: Normal reaction of pupils, equal size. NOSE: Clear with pink turbinates. THROAT: No erythema or exudates. NECK: No masses, no JVD. CHEST: No chest wall deformity. LUNGS: Equal air entry with few scattered rhonchi, bilateral end expiratory wheeze, diminished CVS: S1 and S2 normal with no audible murmur, regular rhythm. ABDOMEN: No hepatosplenomegaly, normal bowel sounds, no guarding or rigidity. SPINE: No scoliosis or deformity SKIN: No rashes CENTRAL NERVOUS SYSTEM: No focal deficits, tone is normal in all 4 extremities. EXTREMITIES: There is no peripheral edema. No clubbing, no cyanosis. Peripheral pulses are intact. - Labs CBC & Chem 7: 01/04/19 06:49 01/04/19 06:49 Labs: Abnormal Lab Results - Last 24 Hours (Table) 01/03/19 01/04/19 01/04/19 Range/Units 07:47 06:49 06:49 WBC 14.1 H (3.8-10.6) k/uL RBC 3.03 L (3.80-5.40) m/uL Hgb 7.7 L (11.4-16.0) gm/dL Hct 26.6 L (34.0-46.0) % MCHC 28.8 L (31.0-37.0) g/dL RDW 19.5 H (11.5-15.5) % Carbon Dioxide 31 H (22-30) mmol/L BUN 27 H (7-17) mg/dL Creatinine 0.49 L (0.52-1.04) mg/dL TSH (0.465-4.680) mIU/L Free T3 pg/mL 2.0 L (2.8-5.3) pg/ml 01/04/19 Range/Units 06:49 WBC (3.8-10.6) k/uL RBC (3.80-5.40) m/uL Hgb (11.4-16.0) gm/dL Hct (34.0-46.0) % MCHC (31.0-37.0) g/dL RDW (11.5-15.5) % Carbon Dioxide (22-30) mmol/L BUN (7-17) mg/dL Creatinine (0.52-1.04) mg/dL TSH 0.049 L (0.465-4.680) mIU/L Free T3 pg/mL (2.8-5.3) pg/ml Microbiology - Last 24 Hours (Table) 01/02/19 11:17 Gram Stain - Final Sputum Sputum Culture - Final 12/28/18 21:30 Blood Culture - Final Blood No Growth after 144 hours Assessment and Plan Assessment: Impression: #1 Acute exacerbation of severe oxygen dependent chronic obstructive pulmonary disease. #2 Chronic and ongoing tobacco dependence. #3 Squamous cell lung cancer diagnosed in October 2017. Status post chemoradiation. Follow-up computed tomography scan in September 2008 revealed evidence of progression. She had been initiated on Opdivo.. #4 Hyperlipidemia. #5 Vitamin D deficiency. #6 Environmental ALLERGIES. #7 Anorexia/cachexia syndrome of malignancy. #7 Osteoarthritis. #9 History of rib fracture. Plan: The patient was seen and evaluated by Dr. Burgess. She is improved from the pulmonary standpoint. Not quite back to her baseline. Still somewhat bronchospastic and wheezy. We'll continue with the current treatment plan including bronchodilators, prednisone. Antibiotics in the form of Levaquin. She is again educated regarding the importance of complete smoking cessation. A NicoDerm patch will be applied. We'll continue to follow and make further recommendations based on her clinical status. I, the cosigning physician, performed a history & physical examination of the patient. Lungs sounds with few scattered rhonchi, end expiratory wheeze, diminished. Maintaining good O2 saturations in the 90s on room air. I discussed the assessment and plan of care with my nurse practitioner, Teena Royal. I attest to the above note as dictated by her.
[2019-01-04 16:36] LABS: Iron Saturation 29.69 (12.00-45.00)
[2019-01-04] MEDS: METOPROLOL TARTRATE 12.5 MG TAB PO SCH ×2 (17:14→21:41)
--- NOTE | 2019-01-04 17:45 | P.PN ---
Subjective Progress Note Date: 01/04/19 Principal diagnosis: COPD exacerbation, SOB, on treatment for NSCLC In f/u pt has not c/o other then persistent cough, SOB is stable, she has had her PICC line placed or chemo. Objective - Vital Signs Vital signs: Vital Signs Temp 97.4 F L 01/04/19 11:22 Pulse 122 H 01/04/19 17:17 Resp 15 01/04/19 11:22 BP 135/68 01/04/19 17:13 Pulse Ox 90 L 01/04/19 17:06 Intake & Output 01/03/19 01/04/19 01/04/19 18:59 06:59 18:59 Intake Total 1870 740 Balance 1870 740 Intake: Intake, IV Titration 50 50 Amount Cefepime 1 gm In Sodium 50 50 Chloride 0.9% 50 ml @ 100 mls/hr IVPB Q12HR [facility] Rx #:[id number] Oral 1820 690 Other: Voiding Method Bedside Commode Bedside Commode # Voids 4 1 3 # Bowel Movements 1 - Constitutional General appearance: Present: cooperative, mild distress, thin - EENT Eyes: Present: anicteric sclerae, EOMI ENT: Present: hearing grossly normal - Respiratory Respiratory: bilateral: diminished - Cardiovascular Details: sustained tachycardia, no adventitious sounds, seems to be regular rhythm, radial pulse 2+ Heart sounds: normal: S1, S2 - Gastrointestinal General gastrointestinal: Present: normal bowel sounds, soft - Integumentary Integumentary: Present: pale - Neurologic Neurologic: Present: CNII-XII intact - Musculoskeletal Musculoskeletal: Present: generalized weakness, strength equal bilaterally - Psychiatric Psychiatric: Present: A&O x's 3, appropriate affect, intact judgment & insight - Labs CBC & Chem 7: 01/04/19 06:49 01/04/19 06:49 Labs: Abnormal Lab Results - Last 24 Hours (Table) 01/03/19 01/04/19 01/04/19 Range/Units 07:47 06:49 06:49 WBC 14.1 H (3.8-10.6) k/uL RBC 3.03 L (3.80-5.40) m/uL Hgb 7.7 L (11.4-16.0) gm/dL Hct 26.6 L (34.0-46.0) % MCHC 28.8 L (31.0-37.0) g/dL RDW 19.5 H (11.5-15.5) % Carbon Dioxide (22-30) mmol/L BUN (7-17) mg/dL Creatinine (0.52-1.04) mg/dL Ferritin 432.1 H (10.0-291.0) ng/mL Vitamin B12 1318.0 H (200.0-944.0) pg/mL TSH (0.465-4.680) mIU/L Free T3 pg/mL 2.0 L (2.8-5.3) pg/ml 01/04/19 01/04/19 Range/Units 06:49 06:49 WBC (3.8-10.6) k/uL RBC (3.80-5.40) m/uL Hgb (11.4-16.0) gm/dL Hct (34.0-46.0) % MCHC (31.0-37.0) g/dL RDW (11.5-15.5) % Carbon Dioxide 31 H (22-30) mmol/L BUN 27 H (7-17) mg/dL Creatinine 0.49 L (0.52-1.04) mg/dL Ferritin (10.0-291.0) ng/mL Vitamin B12 (200.0-944.0) pg/mL TSH 0.049 L (0.465-4.680) mIU/L Free T3 pg/mL (2.8-5.3) pg/ml Microbiology - Last 24 Hours (Table) 01/02/19 11:17 Gram Stain - Final Sputum Sputum Culture - Final 12/28/18 21:30 Blood Culture - Final Blood No Growth after 144 hours Assessment and Plan (1) Adenocarcinoma, lung Narrative/Plan: Pt is currently s/p 5 cycles of nivolumab with decent tolerance overall. Pt was due for treatment f/u scans, this has been competed. Appt with primary Oncologist scheduled and in chart. Anticipate continuation with treatment. PICC placed for access for chemo Current Visit: Yes Status: Chronic Priority: Medium Code(s): C34.90 - MALIGNANT NEOPLASM OF UNSP PART OF UNSP BRONCHUS OR LUNG SNOMED Code(s): 955091063 (2) Acute exacerbation of chronic obstructive airways disease Narrative/Plan: Being treated for the same, symptoms better today. Cont treatment per Pulmonary Current Visit: Yes Status: Acute Priority: High Code(s): J44.1 - CHRONIC OBSTRUCTIVE PULMONARY DISEASE W (ACUTE) EXACERBATION SNOMED Code(s): 370798349 (3) Chronic anemia Narrative/Plan: Iron studies suggestive of inflammation, no supplementation ordered. Current Visit: Yes Status: Chronic Priority: Medium Code(s): D64.9 - ANEMIA, UNSPECIFIED SNOMED Code(s): 966547939 (4) Tachycardia Narrative/Plan: Pt noted to have rather persistent tachycardia. Did ask Cardiology to see pt. Current Visit: Yes Status: Acute Priority: Medium Code(s): R00.0 - TACHYCARDIA, UNSPECIFIED SNOMED Code(s): 5510794
[2019-01-04] MEDS: ATORVASTATIN 20 MG TAB PO SCH (21:22)
[2019-01-04] MEDS: ALPRAZolam 0.5 MG TAB PO SCH (21:22)
[2019-01-04] MEDS: MELATONIN 5 MG TABLET PO SCH (21:23)
[2019-01-04] MEDS: LEVOFLOXACIN 750 MG TAB PO SCH (22:17)
[2019-01-05] MEDS: FORMOTEROL FUMARATE 20 MCG/2 ML NEBU INHALATION SCH (08:13)
[2019-01-05] MEDS: IPRATROPIUM-ALBUTEROL 3 ML NEB INHALATION SCH ×3 (08:13→16:16)
[2019-01-05] MEDS: BUDESONIDE 1 MG/2 ML NEBU INHALATION SCH (08:13)
[2019-01-05] MEDS: LACTOBACILLUS ACIDOPH & BULGAR 1 EACH PACKET PO SCH (08:57)
[2019-01-05] MEDS: CEFEPIME 1 GM in SODIUM CHLORIDE 0.9% 50 ML IVPB SCH (08:57)
[2019-01-05] MEDS: CALCIUM CARBONATE 500 MG CHEWABLE PO SCH (08:57)
[2019-01-05] MEDS: ENOXAPARIN 40 MG/0.4 ML SYRINGE SQ SCH (08:57)
[2019-01-05] MEDS: METOPROLOL TARTRATE 12.5 MG TAB PO SCH (08:57)
[2019-01-05] MEDS: guaiFENesin 600 MG TABLET.ER PO SCH (08:57)
[2019-01-05] MEDS: predniSONE 20 MG TAB PO SCH (08:57)
[2019-01-05] MEDS: CYANOCOBALAMIN 500 MCG TAB PO SCH (08:57)
[2019-01-05] MEDS: LORATADINE 10 MG TAB PO SCH (08:57)
[2019-01-05] MEDS: NICOTINE 14MG/24HR PATCH TRANSDERM SCH (08:57)
[2019-01-05] MEDS: CHOLECALCIFEROL 1,000 UNIT TAB PO SCH (08:57)
[2019-01-05] MEDS: MEGESTROL 40 MG TAB PO SCH (08:57)
--- NOTE | 2019-01-05 10:09 | ECHOF ---
Referral Reason:tachycardia, lung ca on chemo MEASUREMENTS -------- HEIGHT: 160.0 cm WEIGHT: 37.2 kg BP: 117/70 RVIDd: 2.6 cm (< 3.3) IVSd: 1.1 cm (0.6 - 1.1) LVIDd: 4.5 cm (3.9 - 5.3) LVPWd: 1.0 cm (0.6 - 1.1) IVSs: 1.6 cm LVIDs: 2.7 cm LVPWs: 1.6 cm LA Diam: 2.6 cm (2.7 - 3.8) LAESV Index (A-L): 22.53 ml/m Ao Diam: 2.8 cm (2.0 - 3.7) AV Cusp: 1.8 cm (1.5 - 2.6) MV EXCURSION: 16.399 mm (> 18.000) MV EF SLOPE: 111 mm/s (70 - 150) EPSS: 1.3 cm MV E Bipin: 0.64 m/s MV DecT: 101 ms MV A Bipin: 0.92 m/s MV E/A Ratio: 0.70 RAP: 5.00 mmHg RVSP: 35.64 mmHg FINDINGS -------- Resting tachycardia (HR>100bpm). This was a technically adequate study. The left ventricular size is normal. There is borderline concentric left ventricular hypertrophy. Overall left ventricular systolic function is mild-moderately impaired with, an EF between 40 - 45 % . The right ventricle is normal in size. Normal LA size by volume 22+/-6 ml/m2. The right atrium is normal in size. The aortic valve was not well visualized. Mild mitral annular calcification present. Mild mitral regurgitation is present. Mild tricuspid regurgitation present. There is mild pulmonary hypertension. The right ventricular systolic pressure, as measured by Doppler, is 35.64mmHg. The pulmonic valve was not well visualized. The aortic root size is normal. Normal inferior vena cava with normal inspiratory collapse consistent with estimated right atrial pre ssure of 5 mmHg. There is no pericardial effusion. CONCLUSIONS -------- 1. Resting tachycardia (HR>100bpm). 2. This was a technically adequate study. 3. The left ventricular size is normal. 4. There is borderline concentric left ventricular hypertrophy. 5. Overall left ventricular systolic function is mild-moderately impaired with, an EF between 40 - 45 %. 6. The right ventricle is normal in size. 7. Normal LA size by volume 22+/-6 ml/m2. 8. The right atrium is normal in size. 9. The aortic valve was not well visualized. 10. Mild mitral annular calcification present. 11. Mild mitral regurgitation is present. 12. Mild tricuspid regurgitation present. 13. There is mild pulmonary hypertension. 14. The right ventricular systolic pressure, as measured by Doppler, is 35.64mmHg. 15. The pulmonic valve was not well visualized. 16. The aortic root size is normal. 17. Normal inferior vena cava with normal inspiratory collapse consistent with estimated right atrial pressure of 5 mmHg. 18. There is no pericardial effusion. BUSINESS DEVELOPMENT CONSULTANT: Vivienne Lim RDCS
[2019-01-05 13:00] VITALS: BP 134/61; RESP 15; TEMP 97.3
[2019-01-05] MEDS ORDERED: LISINOPRIL 2.5 MG TAB PO SCH (14:15)
--- NOTE | 2019-01-05 14:22 | P.PN ---
Subjective This is a pleasant 78-year-old female past medical history significant for stage III squamous cell lung cancer currently undergoing chemotherapy, dyslipidemia, COPD and chronic nicotine dependence. 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 She is currently admitted into the hospital secondary to an acute exacerbation of COPD as well as pneumonia. We have been asked to see her in consultation secondary to persistent tachycardia. Telemetry tracings reviewed and reveal persistent sustained sinus tachycardia heart rate fluctuating between low 100s-125. She denies feelings of palpitations, dizziness, chest pain, nausea or diaphoresis. At baseline she is significantly short of breath and states this has been increased lately. She is coughing as well. It is questionable on the CAT scan whether there is progression of her's, cell carcinoma in addition to superimposed pneumonia in the right upper lobe. She is currently maintained on IV antibiotics, oral steroids, updraft treatments and inhalers. 01/05/2019 Patient is seen and examined sitting up at the bedside in no acute distress. She denies symptoms of chest pain, dizziness or palpitations. She continues to feel short of breath at baseline with improvement since admission. She denies PND or orthopnea. Echo obtained yesterday reveals impaired LV systolic function with EF 40-45%, mild MR, mild TR and mild pulmonary hypertension with RVSP 35 mmHg. Laboratory data reviewed, WBC 14.1, hgn 7.7, plt 272, sodium 142, potassium 4.6, creatinine 0.49, TSH 0.049, free T4 1.51 and free T3 2.0. Blood pressure 134/67 heart rate has fluctuates between 88-107. Currently maintained on lopressor 12.5 mg BID and atorvastatin 20 mg daily. GENERAL: This is a 78-year-old female in no apparent distress at the time of my examination. Frail. HEENT: Head is atraumatic, normocephalic. Pupils are equal, round. Sclerae anicteric. Conjunctivae are clear. Mucous membranes of the mouth are moist. Neck is supple. There is no jugular venous distention. No carotid bruit is heard. LUNGS: Coarse rhonchi noted throughout worse on expiration. No wheezes or rales. No chest wall tenderness is noted on palpation or with deep breathing. HEART: Regular rate and rhythm without murmurs, rubs or gallops. S1 and S2 heard. EXTREMITIES: No evidence of peripheral edema and no calf tenderness noted. ASSESSMENT Adenocarcinoma of lung with superimposed right upper lobe pneumonia Acute exacerbation of COPD being treated aggressively with bronchodilator antibiotic and steroids Cardiomyopathy, unknown if ischemic or non-ischemic. Will be worked up as an outpatient Sinus tachycardia Leukocytosis Dyslipidemia Cachexia, BMI 14.5 PLAN Hyperthyroid state to be addressed by primary care team, this could be the cause for her tachycardia. Cardiomyopathy noted on echo, unknown if ischemic or non-ischemic at this point. She denies history of CAD, may be related to chemotherapy agents. Further work-up as an outpatient. Appointment has been made with Dr. Obrien. In the meantime, continue beta blockers, atorvastatin and add on small dose of JAMARI in the form of lisinopril 2.5 mg daily. Please call with further questions or concerns. The above impression and plan of care have been discussed and directed by the signing physician. Dominique Whitmore, nurse practitioner, acting as scribe for signing physician. Objective - Vital Signs Vital signs: Vital Signs Temp 97.3 F L 01/05/19 12:59 Pulse 106 H 01/05/19 12:59 Resp 15 01/05/19 12:59 BP 134/61 01/05/19 12:59 Pulse Ox 96 01/05/19 12:59 Intake & Output 01/04/19 01/05/19 01/05/19 18:59 06:59 18:59 Intake Total 1490 400 Balance 1490 400 Weight 37.195 kg Intake: IV 230 normal saline @ 20 230 Intake, IV Titration 50 50 Amount Cefepime 1 gm In Sodium 50 50 Chloride 0.9% 50 ml @ 100 mls/hr IVPB Q12HR [facility] Rx #:[id number] Oral 1440 120 Other: Voiding Method Bedside Commode Bedside Commode # Voids 5 3 # Bowel Movements 1 - Labs CBC & Chem 7: 01/04/19 06:49 01/04/19 06:49 Labs: Abnormal Lab Results - Last 24 Hours (Table) 01/03/19 01/04/19 01/04/19 Range/Units 07:47 06:49 06:49 Ferritin 432.1 H (10.0-291.0) ng/mL Vitamin B12 1318.0 H (200.0-944.0) pg/mL RBC Folate 1,125 H (280 - 791) ng/mL Free T3 pg/mL 2.0 L (2.8-5.3) pg/ml Microbiology - Last 24 Hours (Table) 01/02/19 11:17 Gram Stain - Final Sputum Sputum Culture - Final
--- NOTE | 2019-01-05 14:25 | P.PN ---
Subjective Progress Note Date: 01/05/19 Principal diagnosis: COPD exacerbation, SOB, on treatment for NSCLC Spoke with Cardiology regarding Evaluation for tachycardia. TSH low and EF 40-45 % Objective - Vital Signs Vital signs: Vital Signs Temp 97.3 F L 01/05/19 12:59 Pulse 106 H 01/05/19 12:59 Resp 15 01/05/19 12:59 BP 134/61 01/05/19 12:59 Pulse Ox 96 01/05/19 12:59 Intake & Output 01/04/19 01/05/19 01/05/19 18:59 06:59 18:59 Intake Total 1490 400 Balance 1490 400 Weight 37.195 kg Intake: IV 230 normal saline @ 20 230 Intake, IV Titration 50 50 Amount Cefepime 1 gm In Sodium 50 50 Chloride 0.9% 50 ml @ 100 mls/hr IVPB Q12HR [facility] Rx #:[id number] Oral 1440 120 Other: Voiding Method Bedside Commode Bedside Commode # Voids 5 3 # Bowel Movements 1 - Exam Constitutional General appearance: Present: cooperative, mild distress, thin - EENT Eyes: Present: EOMI ENT: Present: hearing grossly normal - Respiratory Details: respiratory effort is mildly labored, expiration>inspiration Respiratory: right: wheezing (anterior), bilateral: rhonchi (R>L) - Cardiovascular Heart sounds: normal: S1, S2 - Peripheral edema leg Peripheral Edema: bilateral: None - Gastrointestinal General gastrointestinal: Present: normal bowel sounds, soft - Integumentary Integumentary: Present: pale - Neurologic Neurologic: Present: CNII-XII intact - Musculoskeletal Musculoskeletal: Present: generalized weakness - Psychiatric Psychiatric: Present: A&O x's 3, appropriate affect, intact judgment & insight - Labs CBC & Chem 7: 01/04/19 06:49 01/04/19 06:49 Labs: Abnormal Lab Results - Last 24 Hours (Table) 01/03/19 01/04/19 01/04/19 Range/Units 07:47 06:49 06:49 Ferritin 432.1 H (10.0-291.0) ng/mL Vitamin B12 1318.0 H (200.0-944.0) pg/mL RBC Folate 1,125 H (280 - 791) ng/mL Free T3 pg/mL 2.0 L (2.8-5.3) pg/ml Microbiology - Last 24 Hours (Table) 01/02/19 11:17 Gram Stain - Final Sputum Sputum Culture - Final Assessment and Plan Plan: Chest x-ray: report reviewed CT scan - chest: report reviewed Assessment and Plan Assessment: 1. Squamous cell lung cancer - On immunotherapy, Last Opdivo on 12/14/18 (Status post 6 cycles) Her CT shows cavitary lesions in the right upper lobe mass, no significant change from last month, possibly related to treatment effect versus infection. Agree with treating a COPD exacerbation and postobstructive pneumonia. - Will Hold Opdivo until improvement in symptoms while patient is hospitalized. - Discussed with pt and she is agreeable to the plan. All questions answered. - ABX, Steroids, Pulmonary following - CT scan Abd/Pelvis will be checked today and will await imaging results - Follow-up with Dr. Stevens after discharge for treatment plan of care 2. Tachycardia: - Evaluated by Cardiology, EF = 40-45% - Hyperthyroid. 3. Dyspnea: - Progressive and worsening since last hospital stay and discharge - The CT did not show evidence of pneumonitis although this is a differential to consider as patient is on treatment with Opdivo, other differentials include possible post-obstructive pneumonia, possible COPD exacerbation, Plan: Discharge today, will follow-up in office as scheduled for treatment plan Physician Attestation: I have completed the full history and physical and devloped the above impression and plan, and agree with above dictation by moises jansen, dictated as a scribe.
[2019-01-05 16:34] VITALS: PULSE 84
--- NOTE | 2019-01-05 16:36 | P.PN ---
Subjective Progress Note Date: 01/05/19 Principal diagnosis: Acute exacerbation of chronic hypoxemic respiratory failure secondary to severe chronic obstructive pulmonary disease. The patient is seen again today 01/04/2019 in follow-up on the regular medical floor. She is currently sitting up in a chair at the bedside. She is awake and alert in no acute distress. She continues with a loose nonproductive cough. No chills or night sweats. He is maintaining O2 saturations in the upper 90s on room air. She's been afebrile. Hemodynamically stable. Sputum and blood cultures reveal no growth. White count 14.1. Hemoglobin 7.7. Creatinine 0.49. She remains on DuoNeb neb inhalations, Pulmicort and Perforomist inhalations, prednisone, antibiotics in the form of Levaquin. Habitrol patch is in place. The patient was seen again today 01/05/2019 in follow-up on the regular medical floor. She is currently resting comfortably in bed. She is awake and alert in no acute distress. Blood and sputum cultures revealed no growth. White count 14.1. Hemoglobin 7.7. Creatinine 0.49. She is maintaining good O2 saturations in the 90s on 2 L/m per nasal cannula. She's been afebrile. Hemodynamically stable. She is anxious to go home. Objective - Vital Signs Vital signs: Vital Signs Temp 97.3 F L 01/05/19 12:59 Pulse 80 01/05/19 16:16 Resp 15 01/05/19 12:59 BP 134/61 01/05/19 12:59 Pulse Ox 96 01/05/19 12:59 Intake & Output 01/04/19 01/05/19 01/05/19 18:59 06:59 18:59 Intake Total 1490 400 Balance 1490 400 Weight 37.195 kg Intake: IV 230 normal saline @ 20 230 Intake, IV Titration 50 50 Amount Cefepime 1 gm In Sodium 50 50 Chloride 0.9% 50 ml @ 100 mls/hr IVPB Q12HR [facility] Rx #:[id number] Oral 1440 120 Other: Voiding Method Bedside Commode Bedside Commode # Voids 5 3 # Bowel Movements 1 - Exam GENERAL EXAM: Frail, cachecti. Alert, active, comfortable in no apparent distress. On 2 liters. HEAD: Normocephalic. EYES: Normal reaction of pupils, equal size. NOSE: Clear with pink turbinates. THROAT: No erythema or exudates. NECK: No masses, no JVD. CHEST: No chest wall deformity. LUNGS: Equal air entry with end expiratory wheeze, diminished CVS: S1 and S2 normal with no audible murmur, regular rhythm. ABDOMEN: No hepatosplenomegaly, normal bowel sounds, no guarding or rigidity. SPINE: No scoliosis or deformity SKIN: No rashes CENTRAL NERVOUS SYSTEM: No focal deficits, tone is normal in all 4 extremities. EXTREMITIES: There is no peripheral edema. No clubbing, no cyanosis. Peripheral pulses are intact. - Labs CBC & Chem 7: 01/04/19 06:49 01/04/19 06:49 Labs: Abnormal Lab Results - Last 24 Hours (Table) 01/04/19 01/04/19 Range/Units 06:49 06:49 Ferritin 432.1 H (10.0-291.0) ng/mL Vitamin B12 1318.0 H (200.0-944.0) pg/mL RBC Folate 1,125 H (280 - 791) ng/mL Microbiology - Last 24 Hours (Table) 01/02/19 11:17 Gram Stain - Final Sputum Sputum Culture - Final Assessment and Plan Assessment: Impression: #1 Acute exacerbation of severe oxygen dependent chronic obstructive pulmonary disease. #2 Chronic and ongoing tobacco dependence. #3 Squamous cell lung cancer diagnosed in October 2017. Status post chemoradiation. Follow-up computed tomography scan in September 2008 revealed evidence of progression. She had been initiated on Opdivo.. #4 Hyperlipidemia. #5 Vitamin D deficiency. #6 Environmental ALLERGIES. #7 Anorexia/cachexia syndrome of malignancy. #7 Osteoarthritis. #9 History of rib fracture. Plan: The patient was seen and evaluated by Dr. Burgess. She is improved from the pulmonary standpoint. He is cleared for discharge. Continue prednisone burst and taper. Continue a course of antibiotics in the form of Levaquin. She is again educated regarding the importance of complete smoking cessation. She will follow-up in our office in 1-2 weeks' time. She is encouraged to call sooner with any recurrence of symptoms or other questions or concerns. I, the cosigning physician, performed a history & physical examination of the patient. Lungs sounds with few scattered rhonchi, end expiratory wheeze, diminished. Maintaining good O2 saturations in the 90s on 2 L/m per nasal cannula. I discussed the assessment and plan of care with my nurse practitioner , Teena Royal. I attest to the above note as dictated by her.
--- NOTE | 2019-01-05 16:37 | P.DS ---
Providers Date of admission: 12/28/18 22:51 Expected date of discharge: 01/05/19 Attending physician: Penelope Turner MD Consults: 12/28/18 22:52 Consult Physician Routine Consulting Provider: Pravin Barragan Consult Reason/Comments: COPD, lung cancer Do you want consulting provider notified?: Yes Consult Physician Routine Consulting Provider: Remberto Stevens Consult Reason/Comments: Lung cancer, patient known to Do you want consulting provider notified?: Yes, Notify in am 01/04/19 11:47 Consult Physician Routine Consulting Provider: Yesi Matamoros Consult Reason/Comments: sustained tachycardia Do you want consulting provider notified?: Yes Primary care physician: [facility] Course: Discharge diagnosis Acute respiratory failure with hypoxia Acute COPD exacerbation Probable left lower lobe pneumonia Stage III lung cancer Severe protein energy malnutrition Systolic CHF Sinus tachycardia Patient is a 78-year-old female with past medical history of stage III lung cancer on immunotherapy with opdivo, COPD, and dyslipidemia who presented to the emergency department with complaints of worsening shortness of breath and cough. In the ER she underwent an extensive evaluation. CT of the chest showed cavitary right upper lobe malignancy with chest wall invasion, this is known to the patient. Initial laboratory analysis was consistent with her known anemia, was otherwise unremarkable. Influenza was negative. She was started on DuoNeb's and bronchodilators for possible acute exacerbation of COPD. There is concern for possible pneumonia and she was started on clindamycin due to penicillin and cephalosporin intolerance. She was seen by oncology who recommended holding her off opdivo therapy. There is concern for possible pneumonitis. Pulmonary was consulted and felt that her shortness of breath was likely to acute exacerbation of COPD. She was maintained on IV steroids and bronchodilators. On 12/30 her antibiotic was discontinued with thoughts that there was no underlying pneumonia. On the morning of 01/01 she developed worsening shortness of breath. Chest x-ray was done and covering physician had concerns for fluid overload. She was given 1 dose of IV Lasix and seemed to respond well. Chest x-ray was reviewed and shows possible right middle lobe infiltrate. She was started on Levaquin therapy, pulmonary added cefepime. Her duonebs were changed to scheduled. She had quick improvement in her respiratory status with her change in ABX. She elected to have PICC placed for chemo access. The patient was noted to have ongoing tachycardia cardiology was consulted echocardiogram ordered showed ejection fraction of 40-45% suggesting nonischemic cardiomyopathy, the patient was started on metoprolol and lisinopril. She will have home health with palliative care. This discharge process took approximately 35 minutes Constitutional: No acute distress, conversant, pleasant, cachectic Eyes: Anicteric sclerae, moist conjunctiva, no lid-lag, PERRLA ENMT: NC/AT,Oropharynx clear, no erythema, exudates Neck:Supple, FROM, no masses, or JVD, No carotid bruits; No thyromegaly Lungs: Clear to auscultation, Clear to percussion, Normal respiratory effort, no accessory muscle use Cardiovascular: Heart regular in rate and rhythm, No murmurs, gallops, or rubs no peripheral edema Abdominal: Soft Nontender, nom distended, no guarding, no rebound or rigidity, Normoactive bowel sounds No hepatomegaly, No splenomegaly, No palpable mass No abdominal wall hernia noted Skin: Normal temperature, tone, texture, turgor, No induration No subcutaneous nodules, No rash, lesions, No ulcers Extremities:No digital cyanosis No clubbing, Pedal pulses intact and symmetrical Radial pulses intact and symmetrical Normal gait and station, No calf tenderness Psychiatric: Alert and oriented to person, place and time, Appropriate affect Intact judgement Neuro: Muscles Strength 5/5 in all 4 extremities, Sensation to light touch grossly present throughout, Cranial nerves II-XII grossly intact. No focal sensory deficits Patient Condition at Discharge: Fair Plan - Discharge Summary Discharge Rx Participant: No New Discharge Prescriptions: New Levofloxacin [Levaquin] 750 mg PO Q24H #7 tab Lisinopril [Zestril] 2.5 mg PO DAILY #30 tab Metoprolol Tartrate [Lopressor] 12.5 mg PO BID #60 tab predniSONE 60 mg PO DAILY tab Continue Simvastatin [Zocor] 40 mg PO HS Lutein 20 mg PO DAILY Loratadine [Claritin] 10 mg PO DAILY Cholecalciferol [Vitamin D3] 1,000 unit PO DAILY Albuterol Inhaler [Ventolin Hfa Inhaler] 2 puff INHALATION RT-Q6H PRN PRN Reason: Shortness Of Breath Calcium Carbonate [Calcium] 600 mg PO DAILY Hydrocodone/Acetaminophen [[place] 5-325] 1 tab PO Q6HR PRN PRN Reason: Pain Megestrol [Megace] 40 mg PO DAILY Cyanocobalamin [Vitamin B-12] 500 mcg PO DAILY Fluticasone/Vilanterol [Breo Ellipta 200-25 Mcg INH] 1 puff INHALATION RT- DAILY Discharge Medication List Lutein 20 mg PO DAILY 02/03/17 [History] Simvastatin [Zocor] 40 mg PO HS 02/03/17 [History] Albuterol Inhaler [Ventolin Hfa Inhaler] 2 puff INHALATION RT-Q6H PRN 11/01/17 [ History] Calcium Carbonate [Calcium] 600 mg PO DAILY 11/01/17 [History] Cholecalciferol [Vitamin D3] 1,000 unit PO DAILY 11/01/17 [History] Loratadine [Claritin] 10 mg PO DAILY 11/01/17 [History] Hydrocodone/Acetaminophen [[place] 5-325] 1 tab PO Q6HR PRN 01/27/18 [History] Cyanocobalamin [Vitamin B-12] 500 mcg PO DAILY 12/28/18 [History] Fluticasone/Vilanterol [Breo Ellipta 200-25 Mcg INH] 1 puff INHALATION RT-DAILY 12/28/18 [History] Megestrol [Megace] 40 mg PO DAILY 12/28/18 [History] Levofloxacin [Levaquin] 750 mg PO Q24H #7 tab 01/05/19 [Rx] Lisinopril [Zestril] 2.5 mg PO DAILY #30 tab 01/05/19 [Rx] Metoprolol Tartrate [Lopressor] 12.5 mg PO BID #60 tab 01/05/19 [Rx] predniSONE 60 mg PO DAILY tab 01/05/19 [Rx] Follow up Appointment(s)/Referral(s): Sara Carrasco MD [Primary Care Provider] - 01/10/19 11:20 am Pravin Barragan DO [Doctor of Osteopathic Medicine] - 02/21/19 1:00 pm [facility], [NON-STAFF] - 1-2 Days Juan José Obrien MD [STAFF PHYSICIAN] - 01/22/19 4:00 pm Remberto Stevens MD [Family Provider] - 01/09/19 11:00 am Patient Instructions/Handouts: COPD (Chronic Obstructive Pulmonary Disease) (DC )
== END 2019-01-05 17:55 | disposition home or self-care (01) | DRG 190 ==
LOC: EC 19:57 → 3NMEDONC 22:51
PROVIDERS: ADMIT Internal Medicine; ATTEND Internal Medicine
PROC: 05H633Z Insertion of Infusion Device into Left Subclavian Vein, Percutaneous Approach (ICD-10-PCS; principal; 2019-01-04 09:27)
DX: J43.9 Emphysema, unspecified (principal); E43 Unspecified severe protein-calorie malnutrition; J96.21 Acute and chronic respiratory failure with hypoxia; C34.11 Malignant neoplasm of upper lobe, right bronchus or lung; Z68.1 Body mass index [BMI] 19.9 or less, adult; I50.20 Unspecified systolic (congestive) heart failure; I42.9 Cardiomyopathy, unspecified; D63.8 Anemia in other chronic diseases classified elsewhere; E05.90 Thyrotoxicosis, unspecified without thyrotoxic crisis or storm; E55.9 Vitamin D deficiency, unspecified; R62.7 Adult failure to thrive; F17.210 Nicotine dependence, cigarettes, uncomplicated; F41.9 Anxiety disorder, unspecified; I27.20 Pulmonary hypertension, unspecified; E78.5 Hyperlipidemia, unspecified; M19.90 Unspecified osteoarthritis, unspecified site; Z66 Do not resuscitate; Z51.5 Encounter for palliative care; Z79.899 Other long term (current) drug therapy; Z88.1 Allergy status to other antibiotic agents; Z88.5 Allergy status to narcotic agent; Z88.0 Allergy status to penicillin; Z88.8 Allergy status to other drugs, medicaments and biological substances; Z98.51 Tubal ligation status; Z87.01 Personal history of pneumonia (recurrent); Z92.3 Personal history of irradiation; Z99.81 Dependence on supplemental oxygen; Z92.21 Personal history of antineoplastic chemotherapy; Z80.3 Family history of malignant neoplasm of breast; Z79.52 Long term (current) use of systemic steroids; Z90.12 Acquired absence of left breast and nipple; Z79.51 Long term (current) use of inhaled steroids; Z71.6 Tobacco abuse counseling
CPT/HCPCS: 36415; 36573; 71045; 71046; 71260; 74177; 80048; 80053; 82550; 82553; 82607; 82728; 82747; 83540; 83550; 83605; 83735; 83880; 84100; 84439; 84443; 84481; 84484; 85025; 85027; 85610; 85730; 87040; 87070; 87205; 87502; 93005; 93306; 94640; 94760; 96365; 96366; 96375; 99291

== ENCOUNTER → 2019-04-03 | Outpatient (CLI) | payer MEDICARE, BC ==
[2019-04-03 13:40] LABS: Blood Urea Nitrogen 21 mg/dL (7-17)
--- NOTE | 2019-04-03 15:37 | CT ---
EXAMINATION TYPE: CT chest w con DATE OF EXAM: 04/03/2019 COMPARISON: 12/29/2018, 11/18/2018, 09/02/2018 HISTORY: 78-year-old female follow-up LUNG CA, observe for metastases TECHNIQUE: Contiguous axial scanning of the chest after the administration of 100 mL of Isovue 300. Coronal/sagittal reconstructions performed. CT DLP: 107.7mGycm. Automatic exposure control utilized for a dose reduction. FINDINGS: Heart normal size without pericardial effusion. Coronary vessel calcifications are present. Aorta normal caliber with mild atherosclerotic arch calcifications. 6 mm precarinal lymph node slightly smaller from 8 mm, previously. Left CVC tip is located in the lower SVC. Moderate to advanced centrilobular emphysema with redemonstrated large right upper lobe partially nec rotic neoplasm extending from the hilum to the chest wall again showing some erosions. The previous c avitary portion of the mass now fills with fluid. The superior peripheral portion of the mass measures approximately 7.5 x 4.4 cm versus 7.5 x 4.5 cm, previously. The more inferior peripheral aspect of the mass measures approximately 6.1 x 4.4 cm versu s 5.2 x 4.7 cm. Exact measurements are difficult due to complex shape of the mass. Overall, there see ms to have been slight increase in overall bulk as there is more opacity extending along the pleura t owards the apex. No new pulmonary nodules, consolidation, pleural effusion seen. Moderate-sized hiatal hernia. Calcified granuloma peripheral right hepatic dome. Subcentimeter hypodensity posterior left kidney too small for accurate CT characterization for fractu re from prior. Redemonstrated multinodular thyroid gland. Bones: Chronic vertebral compression deformities of T11, T12, and L2. IMPRESSION: 1. Redemonstrated large heterogeneous right upper lobe mass with chest wall invasion, similar rib ero sions, and extension to the right hilum. Previous area of cavitation has now filled with fluid. Overa ll, there has been slight increase in soft tissue bulk as some pleural-based opacity now extends up t owards the apex. 2. COPD with advanced emphysema. The 6 mm precarinal lymph node is smaller from 8 mm, previously. No new metastatic disease evident. 3. Moderate-sized hiatal hernia.
== END ==
LOC: RADCTMAIN 13:06
PROVIDERS: ATTEND Internal Medicine Hematology & Oncology
DX: Z03.89 Encounter for observation for other suspected diseases and conditions ruled out (principal); J43.9 Emphysema, unspecified; K44.9 Diaphragmatic hernia without obstruction or gangrene; C34.11 Malignant neoplasm of upper lobe, right bronchus or lung
CPT/HCPCS: 82565; 84520; 71260; 36415; Q9967

== ENCOUNTER → 2019-06-07 | Outpatient (CLI) | payer MEDICARE, BC ==
--- NOTE | 2019-06-07 16:13 | XR ---
EXAMINATION TYPE: XR chest 2V DATE OF EXAM: 06/07/2019 COMPARISON: 01/02/2019, 04/03/2019 TECHNIQUE: PA and lateral views submitted. HISTORY: Lung cancer FINDINGS: Abnormal increased attenuation, cavitary lesion in the right upper lobe, pleural parenchymal changes are stable. Rib destruction is present at multiple ribs. Chest wall deformity. Patient is rotated, th ere may be scoliosis. Cardiac mediastinal silhouette, pulmonary vascularity and raisa are stable. Prom inent lung volumes compatible with underlying emphysema. Left-sided PICC line noted. Chronic compress ion deformities in the vertebral column stable. IMPRESSION: Cavitary right upper lobe lung mass.
== END | disposition home or self-care (01) ==
LOC: RADXRMAIN 15:54
PROVIDERS: ATTEND Internal Medicine Hematology & Oncology
DX: C34.11 Malignant neoplasm of upper lobe, right bronchus or lung (principal); D63.8 Anemia in other chronic diseases classified elsewhere; R63.0 Anorexia; F06.4 Anxiety disorder due to known physiological condition; R91.8 Other nonspecific abnormal finding of lung field
CPT/HCPCS: 71046

== ENCOUNTER → 2019-07-12 | Outpatient (CLI) | payer MEDICARE, BC ==
[2019-07-12 11:04] LABS: African American GFR (CKD) >90 (>60 ml/min/1.73 sqM); Blood Urea Nitrogen 15 mg/dL (7-17)
--- NOTE | 2019-07-12 13:31 | CT ---
EXAMINATION TYPE: CT ChestAbdPelvis w con DATE OF EXAM: 07/12/2019 COMPARISON: 04/03/2019 and 01/02/2019 HISTORY: Lung cancer CT DLP: 419.4 mGycm Automated exposure control for dose reduction was used. CONTRAST: CT scan of the chest, abdomen and pelvis is performed with Oral Contrast and with IV Contrast, patien t injected with 100 mL of Isovue 300. FINDINGS: LUNGS: Redemonstration of right upper lobe lung mass with development of internal cavitation with air -fluid level and a pocket of air/cavitation measuring 1.9 x 3.5 cm on axial image 19. The overall siz e of the mass has decreased when compared to prior exam and now measures up to 8.9 cm with previous m easurement of 10.0 cm. Redemonstration of thickening along the posterior pleural space and interstiti al thickening throughout the right upper and right lower lobe laterally. No evidence of new nodules o r masses. Redemonstration of pleural thickening along the posterior lateral left pleural space measur ing 1.7 cm, similar to prior. Mild emphysema. No pleural effusion. MEDIASTINUM: Stable anterior tracheal lymph node measuring 0.6 cm. No axillary lymphadenopathy. OTHER: Adjacent to the right upper lobe mass there are multiple rib fractures which were seen on the previous exam with adjacent soft tissue thickening. There is a new heterogeneous masslike structure seen beneath the right pectus major and likely within the right pectus minor measuring 2.6 x 2.1 cm a nd is seen on image 21. LIVER/GB: No significant abnormality is appreciated. PANCREAS: No discrete pancreatic lesion is identified. There is redemonstration of mild dilatation of the pancreatic duct. SPLEEN: No significant abnormality is seen. ADRENALS: No significant abnormality is seen. KIDNEYS: No significant abnormality is seen. BOWEL: No significant abnormality is seen. REPRODUCTIVE ORGANS: No gross abnormality seen. LYMPH NODES: No greater than 1 cm abdominal or pelvic lymph nodes are appreciated. OSSEOUS STRUCTURES: Redemonstration of wedge-shaped compression deformity at T12 and multiple kori conor deformities in the lumbar spine. IMPRESSION: Overall decrease in size of the right upper and lower lobe mass with development of central area of c avitation. There is also adjacent rib involvement, which was demonstrated on previous exam, but there is a new/enlarging soft tissue mass seen within the right pectus minor muscle which may be related t o additional area of metastasis/extrapleural spread. If further evaluation is required, PET scan may be obtained.
== END | disposition home or self-care (01) ==
LOC: RADPROMAIN 09:18
PROVIDERS: ATTEND Internal Medicine Hematology & Oncology
DX: C34.11 Malignant neoplasm of upper lobe, right bronchus or lung (principal)
CPT/HCPCS: 82565; 84520; 71260; 74177; Q9967

== ENCOUNTER → 2019-10-30 | Outpatient (CLI) | payer MEDICARE, BC ==
[2019-10-30 15:28] LABS: African American GFR (CKD) >90 (>60 ml/min/1.73 sqM); Blood Urea Nitrogen 23 mg/dL (7-17); Non-African American GFR(CKD) 83 (>60 ml/min/1.73 sqM)
--- NOTE | 2019-10-31 14:02 | CT ---
EXAMINATION TYPE: CT chest w con DATE OF EXAM: 10/30/2019 COMPARISON: 07/12/2019, 12/29/2018, 07/13/2018 HISTORY: 78 year-old female history of lung ca TECHNIQUE: Contiguous axial scanning of the chest after the administration of 100 mL of Isovue 300. Coronal/sagittal reconstructions performed. CT DLP: 127.90mGycm. Automatic exposure control utilized for a dose reduction. FINDINGS: Heart normal size without pericardial effusion. Coronary vessel calcifications are present. Aorta normal caliber with moderate atherosclerotic calcifications and plaque within the arch with con ventional branching anatomy. Left PICC tip at the lower SVC. Stable 6 mm precarinal lymph node. Otherwise, no progressive thoracic lymphadenopathy. Extensive right upper lobe opacification and areas of loculated fluid are demonstrated. With some of the density extending along the periphery of the major fissure down to the midlung level. The pleural -parenchymal thickening extending down along the lateral right mid thoracic wall has increased measur ing 9 mm thick. Focal consolidation posteromedial right upper lobe, axial image 19 has increased. Previous cavitary area peripheral right upper lobe is now filled with fluid. Focal pleural-parenchymal scarring posterior left apex is unchanged back to at least 07/13/2018. Background of moderate centrilobular emphysema. No new pulmonary nodules. Moderate size hiatal hernia. Visualized upper abdomen shows a exophytic 8 mm hypodense lesion posteri or upper pole left kidney, stable from 07/13/2018 suggesting a cyst. Tortuous upper to mid abdominal a val with moderate atherosclerotic calcifications. Bones: Posttraumatic versus postsurgical change along the right lateral ribs overlying the extensive pleural parenchymal changes. Focal lower thoracic kyphotic deformity secondary to vertebral compression collapse of T12 vertebral body unchanged from 07/12/2019. Minimal superior endplate deformities of T7 and T8 as well as T11 also remain unchanged. IMPRESSION: 1. Extensive pleural parenchymal opacity throughout the right upper lobe extending from the hilum to the pleural margin with mixed consolidation and areas of fluid. 2. Increased (as compared to 07/12/2019) opacity posteromedial aspect of the right upper lobe and also increased pleural parenchymal thickening extending down to the periphery of the right midlung. Findi ngs could represent progressive post treatment inflammation or scarring. The overall extent of opacit y shows significant increase as compared to 07/13/2018. Continued follow-up recommended. PET scan may be considered on the follow-up to assess for any suspicious hypermetabolism. 3. The previous area of cavitary change peripheral right upper lobe is now completely filled with flu id. Correlate to exclude superinfection. 4. COPD with moderate emphysema. 5. Moderate-sized hiatal hernia.
== END | disposition home or self-care (01) ==
LOC: RADCTMAIN 14:47
PROVIDERS: ATTEND Internal Medicine Hematology & Oncology
DX: J43.9 Emphysema, unspecified (principal); K44.9 Diaphragmatic hernia without obstruction or gangrene; R91.8 Other nonspecific abnormal finding of lung field; C34.11 Malignant neoplasm of upper lobe, right bronchus or lung; Z88.0 Allergy status to penicillin
CPT/HCPCS: 36415; 71260; 82565; 84520

== ENCOUNTER → 2019-12-22 | Outpatient (CLI) | payer MEDICARE, BC | END | disposition home or self-care (01) | LOC: RADPETMAIN 08:56 | PROVIDERS: ATTEND Internal Medicine Hematology & Oncology | DX: Z53.9 Procedure and treatment not carried out, unspecified reason (principal) ==

== ENCOUNTER 2019-12-28 13:10 | Emergency (ER) | payer MEDICARE, BC ==
[2019-12-28 13:28] VITALS: TEMP 98.3
--- NOTE | 2019-12-28 13:30 | ED ---
General Adult HPI - General Stated complaint: Poss stroke Time Seen by Provider: 12/28/19 13:18 Source: patient, family, RN notes reviewed Limitations: language barrier (Speech deficits) - History of Present Illness Initial comments: Patient is a pleasant 79-year-old female presenting to the emergency department with family with concerns of stroke. Majority of history is taken from family. Last known well is unknown. Patient was seen by family at 9 AM and did have garbled speech at that time which has persisted. Patient then took a nap. Patient awoke from nap around 1 PM with mild right-sided facial droop. Garbled speech remains unchanged. No other deficits are noted. Patient has a hard time providing history secondary to speech deficit and majority of history is taken from family. No history of arrhythmia or atrial fibrillation. Patient is not on any blood thinners. Patient does have known history of lung cancer and currently is on immunotherapy. - Related Data Home Medications Medication Instructions Recorded Confirmed Lutein 20 mg PO DAILY 02/03/17 12/28/18 Simvastatin [Zocor] 40 mg PO HS 02/03/17 12/28/18 Albuterol Inhaler [Ventolin Hfa 2 puff INHALATION RT-Q6H PRN 11/01/17 12/28/18 Inhaler] Calcium Carbonate [Calcium] 600 mg PO DAILY 11/01/17 12/28/18 Cholecalciferol [Vitamin D3 (25 1,000 unit PO DAILY 11/01/17 12/28/18 Mcg = 1000 Iu)] Loratadine [Claritin] 10 mg PO DAILY 11/01/17 12/28/18 Hydrocodone/Acetaminophen [[place] 1 tab PO Q6HR PRN 01/27/18 12/28/18 5-325] Cyanocobalamin [Vitamin B-12] 500 mcg PO DAILY 12/28/18 12/28/18 Fluticasone/Vilanterol [Breo 1 puff INHALATION RT-DAILY 12/28/18 12/28/18 Ellipta 200-25 Mcg INH] Megestrol [Megace] 40 mg PO DAILY 12/28/18 12/28/18 Previous Rx's Medication Instructions Recorded Levofloxacin [Levaquin] 750 mg PO Q24H #7 tab 01/05/19 Lisinopril [Zestril] 2.5 mg PO DAILY #30 tab 01/05/19 Metoprolol Tartrate [Lopressor] 12.5 mg PO BID #60 tab 01/05/19 predniSONE [Deltasone] 60 mg PO DAILY tab 01/05/19 Allergies Allergy/AdvReac Type Severity Reaction Status Date / Time amoxicillin [From Augmentin] Allergy Diarrhea Verified 12/28/19 13:28 cefaclor [From Ceclor] Allergy Diarrhea Verified 12/28/19 13:28 clarithromycin [From Biaxin] Allergy Diarrhea Verified 12/28/19 13:28 clavulanic acid Allergy Diarrhea Verified 12/28/19 13:28 [From Augmentin] codeine AdvReac Nausea & Verified 12/28/19 13:28 Vomiting & Diarrhea Review of Systems ROS Statement: Those systems with pertinent positive or pertinent negative responses have been documented in the HPI. ROS Other: All systems not noted in ROS Statement are negative. Constitutional: Denies: fever Eyes: Denies: eye pain ENT: Denies: ear pain Respiratory: Denies: cough Cardiovascular: Denies: chest pain Endocrine: Denies: fatigue Gastrointestinal: Denies: abdominal pain Genitourinary: Denies: dysuria Musculoskeletal: Denies: back pain Skin: Denies: rash Neurological: Reports: as per HPI, weakness. Denies: headache Past Medical History Past Medical History: Cancer, COPD, Hyperlipidemia, Osteoarthritis (OA), Respiratory Disorder Additional Past Medical History / Comment(s): - fracture ribs rt, emphysema, Lung cancer History of Any Multi-Drug Resistant Organisms: None Reported Past Surgical History: Breast Surgery, Tonsillectomy, Tubal Ligation Additional Past Surgical History / Comment(s): LEFT MASTECOMY benign . LEFT FOOT FX .LEFT RIBS FX. LEFT TOES FX Past Anesthesia/Blood Transfusion Reactions: No Reported Reaction Past Psychological History: No Psychological Hx Reported Smoking Status: Current every day smoker Past Alcohol Use History: None Reported Past Drug Use History: None Reported - Past Family History Mother Family Medical History: Cancer Additional Family Medical History / Comment(s): breast Father Family Medical History: Cancer General Exam Limitations: language barrier (Speech deficit) General appearance: alert, in no apparent distress Head exam: Present: normocephalic Eye exam: Present: normal appearance, PERRL, EOMI ENT exam: Present: normal oropharynx Neck exam: Present: normal inspection Respiratory exam: Present: normal lung sounds bilaterally Cardiovascular Exam: Present: tachycardia, irregular rhythm GI/Abdominal exam: Present: soft. Absent: tenderness Extremities exam: Present: normal inspection Neurological exam: Present: alert, CN II-XII intact (Except for right facial droop) Expanded Neurological exam: Present: protecting the airway, other (Orientation limited by speech deficit) Speech: Present: expressive aphasia (Garbled speech) Cranial nerves: EOM's Intact: Normal Sensory exam: Upper Extremity Light Touch: Normal, Lower Extremity Light Touch: Normal Motor strength exam: RUE: 5, LUE: 5, RLE: 5, LLE: 5 Eye Response: (4) open spontaneously Motor Response: (6) obeys commands Verbal Response: incomprehensible sounds Psychiatric exam: Present: normal affect, normal mood Skin exam: Present: normal color Course Vital Signs 12/28/19 12/28/19 12/28/19 13:25 13:35 13:50 Temperature 98.3 F Pulse Rate 118 H 116 H 115 H Respiratory 18 18 18 Rate Blood Pressure 147/76 130/64 123/72 O2 Sat by Pulse 98 98 97 Oximetry 12/28/19 14:05 Temperature Pulse Rate 115 H Respiratory 18 Rate Blood Pressure 118/65 O2 Sat by Pulse 99 Oximetry - Reevaluation(s) Reevaluation #1: 12/28/19 13:44 Case was discussed with neurology, Dr. Alba who will look at films and call back. 12/28/19 14:24 Call was received by Dr. Alba. Call then just now received by Dr. Love who is concern for left M1 inclusion would like patient transferred to [facility] for thrombectomy. He recommends fluid bolus, aspirin and relax. Patient reevaluated. Patient and family are updated. EKG Findings - EKG Comments: EKG Findings:: A. fib with RVR, rate 117. QRS 64. QT 314. QTC 438. Normal axis. Normal QRS. No acute ST change. Medical Decision Making - Lab Data Result diagrams: 12/28/19 13:25 12/28/19 13:25 Lab Results 12/28/19 12/28/19 12/28/19 Range/Units 13:25 13:25 13:25 WBC 12.3 H (3.8-10.6) k/uL RBC 3.84 (3.80-5.40) m/uL Hgb 9.3 L (11.4-16.0) gm/dL Hct 32.2 L (34.0-46.0) % MCV 83.9 (80.0-100.0) fL MCH 24.2 L (25.0-35.0) pg MCHC 28.8 L (31.0-37.0) g/dL RDW 17.3 H (11.5-15.5) % Plt Count 313 (150-450) k/uL Neutrophils % 90 % Lymphocytes % 4 % Monocytes % 4 % Eosinophils % 0 % Basophils % 1 % Neutrophils # 11.1 H (1.3-7.7) k/uL Lymphocytes # 0.5 L (1.0-4.8) k/uL Monocytes # 0.5 (0-1.0) k/uL Eosinophils # 0.1 (0-0.7) k/uL Basophils # 0.1 (0-0.2) k/uL Hypochromasia Marked Anisocytosis Slight PT 9.9 (9.0-12.0) sec INR 0.9 (<1.2) APTT 21.4 L (22.0-30.0) sec Sodium 142 (137-145) mmol/L Potassium 4.5 (3.5-5.1) mmol/L Chloride 108 H (98-107) mmol/L Carbon Dioxide 26 (22-30) mmol/L Anion Gap 8 mmol/L BUN 22 H (7-17) mg/dL Creatinine 0.62 (0.52-1.04) mg/dL Est GFR (CKD-EPI)AfAm >90 (>60 ml/min/1.73 sqM) Est GFR (CKD-EPI)NonAf 87 (>60 ml/min/1.73 sqM) Glucose 118 H (74-99) mg/dL Calcium 9.2 (8.4-10.2) mg/dL Total Bilirubin 0.4 (0.2-1.3) mg/dL AST 26 (14-36) U/L ALT 19 (4-34) U/L Alkaline Phosphatase 92 (38-126) U/L Total Protein 7.0 (6.3-8.2) g/dL Albumin 3.8 (3.5-5.0) g/dL - Radiology Data Radiology results: report reviewed (ET scan the brain shows no acute process) Critical Care Time Critical Care Time: Yes Total Critical Care Time: 33 Disposition Clinical Impression: Cerebrovascular accident (CVA), Atrial fibrillation with RVR Disposition: OTHER INSTITUTION NOT DEFINED Condition: Serious Referrals: Sara Carrasco MD [Primary Care Provider] - 1-2 days Time of Disposition: 14:26 - Out of Hospital Transfer - Req. Specs Out of Hospital Transfer - Requested Specifics: Other Emergency Center
--- NOTE | 2019-12-28 13:43 | CT ---
EXAMINATION TYPE: CT brain wo con for TPA DATE OF EXAM: 12/28/2019 COMPARISON: None HISTORY: Trouble speaking, stroke suspected CT DLP: 1012.[address] of the brain was performed. The ventricles, basal cisterns and sulci overlying the cerebral convexities demonstrate mild enlargem ent. There is no evidence for intracranial hemorrhage or sulcal effacement. There is decreased attenuation about the periventricular white matter and deep white matter of both c erebral hemispheres, compatible with chronic small vessel ischemia. Differential diagnosis does inclu de demyelination. No mass effects are seen.No midline shift. Osseous calvarium is intact. If symptoms persist consider MRI. IMPRESSION: 1. Age related atrophic and chronic small vessel ischemic change without acute intracranial process s een at this time.
--- NOTE | 2019-12-28 13:55 | CT ---
EXAMINATION TYPE: CT angio head neck DATE OF EXAM: 12/28/2019 COMPARISON: CT chest dated 10/30/2019 HISTORY: Neurologic deficit CONTRAST: Performed with IV Contrast, patient injected with 100 mL of Isovue 300. Combination Contrast CTA cervical carotids and [place] CTA cervical carotids with 3-D recons truction Contrast CTA of the cervical carotids was performed 3-D reconstruction imaging obtained at a separate workstation. Right carotid system: Mild plaque is seen of the right common carotid artery. There is mild plaque a lso noted at the carotid bulb and proximal ICA. No significant diameter reduction. ECA is patent. Right vertebral artery appears unremarkable. Left carotid system: Mild plaque is seen of the left common carotid artery. There is mild plaque als o noted at the carotid bulb and proximal ICA. No significant diameter reduction. ECA is patent. Lef t vertebral artery appears unremarkable. There is a right upper lobe mass noted with associated volume loss. This was noted on prior CT of the chest. Suspect underlying malignancy. IMPRESSION: 1. No significant diameter reduction to account for the patient's symptoms. CTA [place] with 3-D reconstruction Contrast CTA of the [place] was performed 3-D reconstruction imaging obtained at a separate workstation. Vertebrobasilar system is patent. There is narrowing of the distal left MCA. Right MCA and branches a ppear to be patent. I do not see evidence for sizable aneurysm or vascular malformation. Please note MRI provides greater sensitivity and specificity. Visualized brain appears grossly unremarkable. IMPRESSION: 1. Atheromatous narrowing distal left MCA.
[2019-12-28 14:03] LABS: ALT 19 U/L (4-34); AST 26 U/L (14-36); African American GFR (CKD) >90 (>60 ml/min/1.73 sqM); Albumin 3.8 g/dL (3.5-5.0); Alkaline Phosphatase 92 U/L (38-126); Anion Gap 8 mmol/L; Blood Urea Nitrogen 22 mg/dL (7-17); Calcium 9.2 mg/dL (8.4-10.2); Carbon Dioxide 26 mmol/L (22-30); Chloride 108 mmol/L (98-107); Glucose 118 mg/dL (74-99); Non-African American GFR(CKD) 87 (>60 ml/min/1.73 sqM); Potassium 4.5 mmol/L (3.5-5.1); Sodium 142 mmol/L (137-145); Total Bilirubin 0.4 mg/dL (0.2-1.3)
[2019-12-28 14:06] LABS: Anisocytosis Slight; Basophils # (A) 0.1 k/uL (0-0.2); Basophils % (A) 1 %; Eosinophils # (A) 0.1 k/uL (0-0.7); Eosinophils % (A) 0 %; HCT 32.2 % (34.0-46.0); HGB 9.3 gm/dL (11.4-16.0); Hypochromasia Marked; INR 0.9 (<1.2); Lymphocytes # (A) 0.5 k/uL (1.0-4.8); Lymphocytes % (A) 4 %; MCH 24.2 pg (25.0-35.0); MCHC 28.8 g/dL (31.0-37.0); MCV 83.9 fL (80.0-100.0); Mean Platelet Volume 8.5; Monocytes # (A) 0.5 k/uL (0-1.0); Monocytes % (A) 4 %; Neutrophils # (A) 11.1 k/uL (1.3-7.7); Neutrophils % (A) 90 %; Platelet Count 313 k/uL (150-450); Prothrombin Time 9.9 sec (9.0-12.0); RBC 3.84 m/uL (3.80-5.40); RDW 17.3 % (11.5-15.5); WBC 12.3 k/uL (3.8-10.6)
[2019-12-28 14:15] LABS: Partial Thromboplastin Time 21.4 sec (22.0-30.0)
[2019-12-28] MEDS ORDERED: ASPIRIN 81 MG PO STA (14:26)
[2019-12-28] MEDS ORDERED: TICAGRELOR 90 MG TAB PO STA (14:26)
[2019-12-28] MEDS ORDERED: SODIUM CHLORIDE 0.9% 1,000 ML IV STA (14:27)
--- NOTE | 2019-12-28 14:58 | XR ---
EXAMINATION TYPE: XR chest 1V portable DATE OF EXAM: 12/28/2019 COMPARISON: Prior chest x-ray 06/07/2019, prior CT 12/28/2019 HISTORY: Altered mental status TECHNIQUE: Single frontal view of the chest is obtained. FINDINGS: The abnormal attenuation in the right upper lobe shows interval loss of central lucency, a ir-fluid level. There is no evident pneumothorax. Left-sided PICC line is stable. No evident pleural effusion. Patient is rotated toward the right. Cardiac mediastinal silhouette, pulmonary vascularity and raisa are stable. There are overlying cardiac leads. Dominant lung volume consistent with underlyi ng COPD. Deformity of the superolateral right ribs is noted. IMPRESSION: Abnormal opacity in the right upper lobe is indeterminate, consider tumor, infection, th ere is emphysema.
[2019-12-28] MEDS ORDERED: LORazepam 2 MG/ML INJ IV STA (15:12)
[2019-12-28 15:33] VITALS: BP 134/68; PULSE 114; RESP 181
== END 2019-12-28 15:31 | disposition short-term general hospital (02) ==
LOC: EC 13:10
DX: I48.91 Unspecified atrial fibrillation (principal); I63.9 Cerebral infarction, unspecified; R29.810 Facial weakness; R47.01 Aphasia; J43.9 Emphysema, unspecified; E78.5 Hyperlipidemia, unspecified; M19.90 Unspecified osteoarthritis, unspecified site; F17.200 Nicotine dependence, unspecified, uncomplicated; Z88.0 Allergy status to penicillin; Z88.1 Allergy status to other antibiotic agents; Z88.5 Allergy status to narcotic agent; Z79.51 Long term (current) use of inhaled steroids; Z79.890 Hormone replacement therapy; Z79.891 Long term (current) use of opiate analgesic; Z79.899 Other long term (current) drug therapy; Z85.118 Personal history of other malignant neoplasm of bronchus and lung
CPT/HCPCS: 36415; 93005; 80053; 84484; 85025; 85610; 85730; 71045; 70496; 70450; 70498; 99291; 96374; J2060; Q9967; 71046

== ENCOUNTER → 2019-12-28 | Outpatient (CLI) | payer MEDICARE, BC | END | disposition home or self-care (01) | LOC: RADPETMAIN 12:32 | PROVIDERS: ATTEND Internal Medicine Hematology & Oncology | DX: Z53.9 Procedure and treatment not carried out, unspecified reason (principal) ==

== ENCOUNTER → 2020-02-02 | Outpatient (CLI) | payer MEDICARE, BC ==
--- NOTE | 2020-02-05 07:06 | PE ---
EXAMINATION TYPE: PET CT fusion skull to thigh DATE OF EXAM: 02/02/2020 COMPARISON: Most recent CT October 30, 2019 and older CTs HISTORY: Lung cancer originally diagnosed right lung October 2017 completed radiation treatment 20 18 currently undergoing chemotherapy. TECHNIQUE: Following the intravenous administration of 13.14 mCi of F-18 FDG, whole body images are performed from the skull base to the midthigh. Images are reviewed on the computer in the coronal, a xial, and sagittal planes. Reconstructed rotating images are created on independent workstation and reviewed on the computer. A noncontrast CT is performed in conjunction with the PET scan. SCAN: Subsequent Scan FINDINGS: SKULL BASE AND NECK: No new areas of suspicious hypermetabolic uptake. CHEST, MEDIASTINUM, AND HILAR REGION: Right upper lung shows peripheral ovoid heterogeneous area with central hypodensity abutting the lateral upper ribs somewhat show reactive sclerotic changes and hea ling/healed pathologic fracture. The area involved is difficult to accurately measure, measures rough ly 7.1 x 4.5 cm axial image 69. Only peripheral portion shows hypermetabolic uptake on current study, more curvilinear in appearance improved from last 2 PET [address]s, max SUV is 13.96 along the medial aspec t axial image 67. There is increasing right-sided volume loss with mediastinal shift. No new areas of abnormal hypermetabolic uptake. ABDOMEN AND PELVIS: No new areas of abnormal hypermetabolic uptake. OSSEOUS STRUCTURES: No new areas of abnormal hypermetabolic uptake. OTHER CT: Mild calcified plaque bilateral carotid bulb level is redemonstrated. Moderate to severe co ronary artery calcification again seen which is noted marker for underlying coronary artery disease. Stable moderate-sized hiatal hernia. Moderate calcified plaque of the aorta extends into branch vessels. S-shaped scoliosis with exaggerated thoracolumbar kyphosis centered at T12 level with severe chronic compression fracture. Mild to moderate compression fracture T6 level with sclerosis. Thoracic spine s traightening on sagittal images. IMPRESSION: Positive partial treatment response to the right upper lobe neoplasm. No new metastatic d isease identified.
== END | disposition home or self-care (01) ==
LOC: RADPETMAIN 12:44
PROVIDERS: ATTEND Internal Medicine Hematology & Oncology
DX: C34.11 Malignant neoplasm of upper lobe, right bronchus or lung (principal); Z92.21 Personal history of antineoplastic chemotherapy; Z92.3 Personal history of irradiation
CPT/HCPCS: 78815; A9552

== ENCOUNTER → 2020-05-06 | Outpatient (CLI) | payer MEDICARE, BC ==
--- NOTE | 2020-05-06 12:47 | CT ---
EXAMINATION TYPE: CT chest w con DATE OF EXAM: 05/06/2020 COMPARISON: 10/30/2019, 02/02/2020 HISTORY: Follow up cancer CT DLP: 136.6 mGycm Automated exposure control for dose reduction was used. CONTRAST: CT scan of the chest is performed with IV Contrast, patient injected with 80 mL of Isovue 300. FINDINGS: LUNGS: Extensive right upper lobe opacification and areas of loculated fluid are demonstrated. With s ome of the density extending along the periphery of the major fissure down to the midlung level. The pleural-parenchymal thickening extending down along the lateral right mid thoracic wall has increased measuring 9 mm thick. Calcified nodule right lung base. Hyperinflation suggests COPD there are findi ngs suggestive of chronic interstitial pulmonary fibrosis Left apical pleural thickening stable MEDIASTINUM: There are no greater than 1 cm hilar or mediastinal lymph nodes. No pericardial effusi on is seen. OTHER: Abnormal skin thickening, calcification soft tissue density involving the right breast correl ate for history of previous breast cancer or surgery. Large hiatal hernia noted. Posttraumatic versus postsurgical change along the right lateral ribs overlying the extensive pleural parenchymal changes . Focal lower thoracic kyphotic deformity secondary to vertebral compression collapse of T12 vertebra l body unchanged from 07/12/2019. Superior endplate deformities at multiple levels again noted.. Bilat eral renal simple cyst are seen and there are calcifications in the right kidney. Bilateral thyroid n odules are noted. Chronic deformities of the right rib cage stable. IMPRESSION: 1. Large area of consolidative mass like process in the right upper lobe is similar to the prior exam with no definite significant interval change.
== END | disposition home or self-care (01) ==
LOC: RADCTMAIN 11:02
PROVIDERS: ATTEND Internal Medicine Hematology & Oncology
DX: C34.11 Malignant neoplasm of upper lobe, right bronchus or lung (principal); Z88.0 Allergy status to penicillin; Z88.1 Allergy status to other antibiotic agents
CPT/HCPCS: 82565; 84520; 71260; 36415; Q9967

== ENCOUNTER 2020-09-17 10:54 | Inpatient (IN) | payer MEDICARE, BC ==
[2020-09-17] MEDS ORDERED: IPRATROPIUM 0.5 MG/2.5 ML NEBU INHALATION STA (10:59)
[2020-09-17] MEDS ORDERED: ALBUTEROL NEBULIZED 2.5 MG/3 ML INHALATION STA (10:59)
[2020-09-17 11:16] LABS: VBG PH 7.35 (7.31-7.41)
--- NOTE | 2020-09-17 11:20 | ED ---
General Adult HPI - General Chief complaint: Shortness of Breath Stated complaint: SOB Time Seen by Provider: 09/17/20 10:54 Source: patient, EMS, RN notes reviewed, old records reviewed Mode of arrival: EMS - History of Present Illness Initial comments: This is a 79-year-old female presents emergency Department complaining of difficulty breathing. Patient has a history of lung cancer. Patient states that difficult breathing or shortness. Patient states difficulty breathing got worse this morning. Patient denies any fever chills per patient denies a cough per patient denies any chest pain or palpitations. Patient denies abdominal pain patient denies nausea vomiting diarrhea. Patient denies headache patient denies numbness weakness. Patient states she does not want to be intubated and she does not want CPR. He is alert and oriented 3 - Related Data Home Medications Medication Instructions Recorded Confirmed Fluticasone/Vilanterol [Breo 1 puff INHALATION RT-DAILY 12/28/18 09/17/20 Ellipta 200-25 Mcg INH] Albuterol Inhaler [Ventolin Hfa 2 puff INHALATION RT-Q4H PRN 09/17/20 09/17/20 Inhaler] Albuterol Nebulized [Ventolin 2.5 mg INHALATION RT-Q4H PRN 09/17/20 09/17/20 Nebulized] Apixaban [Eliquis] 5 mg PO BID 09/17/20 09/17/20 Atorvastatin Calcium [Lipitor] 40 mg PO DAILY 09/17/20 09/17/20 Furosemide [Lasix] 20 mg PO DAILY PRN 09/17/20 09/17/20 LORazepam [Ativan] 0.5 mg PO BID PRN 09/17/20 09/17/20 Megestrol [Megace] 800 mg PO DAILY 09/17/20 09/17/20 Metoprolol Tartrate [Lopressor] 25 mg PO BID 09/17/20 09/17/20 Midodrine HCl 10 mg PO TID PRN 09/17/20 09/17/20 Ondansetron [Zofran] 4 mg PO Q8H PRN 09/17/20 09/17/20 Pantoprazole Sodium [Protonix] 40 mg PO DAILY 09/17/20 09/17/20 Potassium Chloride ER [K-Dur 20] 20 meq PO DAILY PRN 09/17/20 09/17/20 predniSONE 10 mg PO DAILY 09/17/20 09/17/20 Allergies Allergy/AdvReac Type Severity Reaction Status Date / Time amoxicillin [From Augmentin] Allergy Diarrhea Verified 09/17/20 12:00 cefaclor [From Ceclor] Allergy Diarrhea Verified 09/17/20 12:00 clarithromycin [From Biaxin] Allergy Diarrhea Verified 09/17/20 12:00 clavulanic acid Allergy Diarrhea Verified 09/17/20 12:00 [From Augmentin] codeine AdvReac Nausea & Verified 09/17/20 12:00 Vomiting & Diarrhea Review of Systems ROS Statement: Those systems with pertinent positive or pertinent negative responses have been documented in the HPI. ROS Other: All systems not noted in ROS Statement are negative. Past Medical History Past Medical History: Cancer, COPD, Hyperlipidemia, Osteoarthritis (OA), Respiratory Disorder Additional Past Medical History / Comment(s): - fracture ribs rt, emphysema, Lung cancer History of Any Multi-Drug Resistant Organisms: None Reported Past Surgical History: Breast Surgery, Tonsillectomy, Tubal Ligation Additional Past Surgical History / Comment(s): LEFT MASTECOMY benign . LEFT FOOT FX .LEFT RIBS FX. LEFT TOES FX Past Anesthesia/Blood Transfusion Reactions: No Reported Reaction Past Psychological History: No Psychological Hx Reported Smoking Status: Former smoker Past Alcohol Use History: None Reported Past Drug Use History: None Reported - Past Family History Mother Family Medical History: Cancer Additional Family Medical History / Comment(s): breast Father Family Medical History: Cancer General Exam - General Exam Comments Initial Comments: GENERAL: Patient is well-developed and well-nourished. Patient is nontoxic and well- hydrated and is in mild distress. ENT: Neck is soft and supple. No significant lymphadenopathy is noted. Oropharynx is clear. Moist mucous membranes. Neck has full range of motion without eliciting any pain. EYES: The sclera were anicteric and conjunctiva were pink and moist. Extraocular movements were intact and pupils were equal round and reactive to light. Eyelids were unremarkable. PULMONARY: Very diminished breath sounds more so on the right base on the left. CARDIOVASCULAR: There is a regular rate and rhythm without any murmurs gallops or rubs. ABDOMEN: Soft and nontender with normal bowel sounds. SKIN: Skin is clear with no lesions or rashes and otherwise unremarkable. NEUROLOGIC: Patient is alert and oriented x3. Cranial nerves II through XII are grossly intact. Motor and sensory are also intact. Normal speech, volume and content. Symmetrical smile. MUSCULOSKELETAL: Normal extremities with adequate strength and full range of motion. LYMPHATICS: No significant lymphadenopathy is noted PSYCHIATRIC: Normal psychiatric evaluation. Course Vital Signs 09/17/20 09/17/20 09/17/20 10:55 11:26 11:50 Temperature 97.8 F Pulse Rate 100 89 98 Respiratory 24 Rate Blood Pressure 124/74 O2 Sat by Pulse 90 L Oximetry Medical Decision Making - Medical Decision Making EKG shows atrial fibrillation with rapid ventricular response at 105 bpm QRS is 66 QT interval 336 QTC is 444. Patient's EKG has multiple PVCs. Chest x-ray shows enlarged mass as well as a new pleural effusion on the right side. Decreased lung volume. Patient's hemoglobin was 6.4 and so I gave the patient 1 unit of packed red blood cells. She remained on BiPAP and was oxygenating at 100% on the ED. Patient definitively say she did not want to be intubated or have CPR started. I will prophylactically start the patient on antibiotics. I spoke with Dr. Corona agreed to admit the patient admitted the patient wrote admitting orders. - Lab Data Result diagrams: 09/17/20 11:34 09/17/20 11:06 Lab Results 09/17/20 09/17/20 09/17/20 Range/Units 11:06 11:06 11:06 WBC (3.8-10.6) k/uL RBC (3.80-5.40) m/uL Hgb (11.4-16.0) gm/dL Hct (34.0-46.0) % MCV (80.0-100.0) fL MCH (25.0-35.0) pg MCHC (31.0-37.0) g/dL RDW (11.5-15.5) % Plt Count (150-450) k/uL Neutrophils % % Lymphocytes % % Monocytes % % Eosinophils % % Basophils % % Neutrophils # (1.3-7.7) k/uL Lymphocytes # (1.0-4.8) k/uL Monocytes # (0-1.0) k/uL Eosinophils # (0-0.7) k/uL Basophils # (0-0.2) k/uL Hypochromasia Anisocytosis Microcytosis PT 10.3 (9.0-12.0) sec INR 1.0 (<1.2) APTT 17.7 L (22.0-30.0) sec VBG pH (7.31-7.41) VBG pCO2 (37-51) mmHg VBG HCO3 (24-28) mmol/L Sodium 140 (137-145) mmol/L Potassium 4.7 (3.5-5.1) mmol/L Chloride 106 (98-107) mmol/L Carbon Dioxide 20 L (22-30) mmol/L Anion Gap 14 mmol/L BUN 23 H (7-17) mg/dL Creatinine 0.87 (0.52-1.04) mg/dL Est GFR (CKD-EPI)AfAm 74 (>60 ml/min/1.73 sqM) Est GFR (CKD-EPI)NonAf 64 (>60 ml/min/1.73 sqM) Glucose 230 H (74-99) mg/dL Plasma Lactic Acid Markus 5.5 H* (0.7-2.0) mmol/L Calcium 9.3 (8.4-10.2) mg/dL Magnesium 2.2 (1.6-2.3) mg/dL Total Bilirubin 0.6 (0.2-1.3) mg/dL AST 22 (14-36) U/L ALT 15 (4-34) U/L Alkaline Phosphatase 79 (38-126) U/L Troponin I (0.000-0.034) ng/mL Total Protein 6.4 (6.3-8.2) g/dL Albumin 3.4 L (3.5-5.0) g/dL 09/17/20 09/17/20 09/17/20 Range/Units 11:06 11:06 11:34 WBC 16.3 H (3.8-10.6) k/uL RBC 3.08 L (3.80-5.40) m/uL Hgb 6.4 L* (11.4-16.0) gm/dL Hct 25.5 L (34.0-46.0) % MCV 82.9 (80.0-100.0) fL MCH 20.7 L (25.0-35.0) pg MCHC 25.0 L (31.0-37.0) g/dL RDW 18.8 H (11.5-15.5) % Plt Count 402 (150-450) k/uL Neutrophils % 88 % Lymphocytes % 7 % Monocytes % 4 % Eosinophils % 0 % Basophils % 0 % Neutrophils # 14.4 H (1.3-7.7) k/uL Lymphocytes # 1.1 (1.0-4.8) k/uL Monocytes # 0.6 (0-1.0) k/uL Eosinophils # 0.1 (0-0.7) k/uL Basophils # 0.0 (0-0.2) k/uL Hypochromasia Marked Anisocytosis Slight Microcytosis Slight PT (9.0-12.0) sec INR (<1.2) APTT (22.0-30.0) sec VBG pH 7.35 (7.31-7.41) VBG pCO2 39 (37-51) mmHg VBG HCO3 21 L (24-28) mmol/L Sodium (137-145) mmol/L Potassium (3.5-5.1) mmol/L Chloride (98-107) mmol/L Carbon Dioxide (22-30) mmol/L Anion Gap mmol/L BUN (7-17) mg/dL Creatinine (0.52-1.04) mg/dL Est GFR (CKD-EPI)AfAm (>60 ml/min/1.73 sqM) Est GFR (CKD-EPI)NonAf (>60 ml/min/1.73 sqM) Glucose (74-99) mg/dL Plasma Lactic Acid Markus (0.7-2.0) mmol/L Calcium (8.4-10.2) mg/dL Magnesium (1.6-2.3) mg/dL Total Bilirubin (0.2-1.3) mg/dL AST (14-36) U/L ALT (4-34) U/L Alkaline Phosphatase (38-126) U/L Troponin I 0.032 (0.000-0.034) ng/mL Total Protein (6.3-8.2) g/dL Albumin (3.5-5.0) g/dL Disposition Clinical Impression: Lung cancer, Pleural effusion, Anemia Disposition: ADMITTED IP TO THIS HOSP Referrals: Souphis,Dwayne, DO [Primary Care Provider] - 1-2 days Time of Disposition: 12:15
[2020-09-17 11:28] LABS: Albumin 3.4 g/dL (3.5-5.0); Calcium 9.3 mg/dL (8.4-10.2); Magnesium 2.2 mg/dL (1.6-2.3); Potassium 4.7 mmol/L (3.5-5.1); Total Bilirubin 0.6 mg/dL (0.2-1.3); Total Protein 6.4 g/dL (6.3-8.2)
[2020-09-17] MEDS ORDERED: LORazepam 2 MG/ML INJ IV STA (11:28)
--- NOTE | 2020-09-17 11:34 | XR ---
EXAMINATION TYPE: XR chest 1V portable DATE OF EXAM: 09/17/2020 COMPARISON: Chest CT May 06, 2020 and older studies. PET/CT February 02, 2020 HISTORY: Shortness of breath. History of COPD. TECHNIQUE: Single frontal view of the chest is obtained. FINDINGS: Poor inspiration on current study. Background chronic emphysematous change redemonstrated. Worsening right upper lung masslike consolidation along with new [id number] right pleural effu conor. Right-sided volume loss redemonstrated with mediastinal shift. Cardiac silhouette size more pro minent and mildly enlarged on current study. Osseous structures remain demineralized. IMPRESSION: Background emphysematous change and right-sided volume loss redemonstrated. New small to moderate-sized right pleural effusion. New mild cardiomegaly. Worsening right upper lung masslike co nsolidation corresponding to area of hypermetabolic uptake on PET/CT likely reflecting enlarging neop lasm and worsening postobstructive atelectasis.
[2020-09-17 11:35] LABS: Prothrombin Time 10.3 sec (9.0-12.0)
[2020-09-17] MEDS ORDERED: SODIUM CHLORIDE 0.9% 1,000 ML IV ONE ×2 (11:39→12:19)
[2020-09-17] MEDS ORDERED: SODIUM CHLORIDE 0.9% 500 ML 500 ML IV ONE (11:39)
[2020-09-17 11:40] LABS: Partial Thromboplastin Time 17.7 sec (22.0-30.0)
[2020-09-17 11:54] LABS: Anisocytosis Slight; Basophils % (A) 0 %; Eosinophils # (A) 0.1 k/uL (0-0.7); Eosinophils % (A) 0 %; HCT 25.5 % (34.0-46.0); Hypochromasia Marked; Lymphocytes # (A) 1.1 k/uL (1.0-4.8); Lymphocytes % (A) 7 %; MCH 20.7 pg (25.0-35.0); MCV 82.9 fL (80.0-100.0); Mean Platelet Volume 8.2; Microcytosis Slight; Monocytes # (A) 0.6 k/uL (0-1.0); Monocytes % (A) 4 %; Neutrophils # (A) 14.4 k/uL (1.3-7.7); Neutrophils % (A) 88 %; Platelet Count 402 k/uL (150-450); RBC 3.08 m/uL (3.80-5.40); RDW 18.8 % (11.5-15.5); WBC 16.3 k/uL (3.8-10.6)
[2020-09-17 12:01] LABS: HGB 6.4 gm/dL (11.4-16.0)
[2020-09-17] MEDS ORDERED: LEVOFLOXACIN 750MG-D5W PMX 750 MG in DEXTROSE/WATER 1 150ML.BAG IVPB STA (12:15)
[2020-09-17] MEDS ORDERED: RX INFO: IV CONTRAST WAS GIVEN 1 EACH MISC MISCELLANE PRN (12:55)
--- NOTE | 2020-09-17 15:10 | CT ---
EXAMINATION TYPE: CT angio chest DATE OF EXAM: 09/17/2020 1:36 PM COMPARISON: Chest x-ray earlier today and older studies. HISTORY: Lung CA with new shortness of breath. CT DLP: 238.5 mGycm Automated exposure control for dose reduction was used. CONTRAST: CTA scan of the thorax is performed with IV Contrast, patient injected with 85 mL of Isovue 370, pulm onary embolism protocol. MIP images are created and reviewed. FINDINGS: LUNGS: Background moderate to advanced underlying emphysematous change redemonstrated. New diffuse gr oundglass opacity and mild interstitial edema bilaterally. New tiny left pleural effusion. New small to moderate right pleural effusion. Associated bibasilar compressive atelectasis. Persistent right up per lobe mass or neoplasm with abrupt cut off of the right upper lobe bronchus. Continued interval pr ogression felt present. Difficult to accurately measure due to presence of mass and peripheral postob structive atelectasis. Persistent right-sided volume loss with mediastinal shift. MEDIASTINUM: There is satisfactory enhancement of the pulmonary artery and its branches, there is no CT evidence for pulmonary embolism. There are no greater than 1 cm hilar or mediastinal lymph nodes. No pericardial effusion is seen. Mild cardiomegaly. Mild to moderate biatrial and left ventricular dilatation redemonstrated. Coronary artery calcification is present which is noted marked of underly ing coronary artery disease. OTHER: Anterolateral right upper rib fractures and deformities redemonstrated osseous structures are demineralized. Advanced compression type fracture at roughly T12 level redemonstrated. Underlying sc oliosis redemonstrated. Stable calcification in the right hepatic dome. IMPRESSION: 1. No CT evidence for acute pulmonary embolism. 2. Moderate to advanced emphysematous change. New [id number] size right pleural effusion and t iny left pleural effusion. New alveolar and interstitial edema. Mild cardiomegaly. Correlate for flui d overload or CHF exacerbation. 3. Interval progression in right upper lobe mass or neoplasm and postobstructive atelectasis.
[2020-09-17] MEDS: IPRATROPIUM-ALBUTEROL 3 ML NEB INHALATION SCH ×2 (16:14→20:25)
--- NOTE | 2020-09-17 16:45 | P.CNPUL ---
History of Present Illness Consult date: 09/17/20 Requesting physician: Lex Lema Reason for consult: dyspnea Chief complaint: Shortness of breath History of present illness: 79-year-old female patient of Dr. Hester with known history of advanced COPD on home oxygen, history of squamous cell lung cancer currently not on any treatment, hyperlipidemia, current smoker, trying to quit. Her lung cancer was originally diagnosed in October 2017, and patient completed radiation treatment in 2017, the patient did receive chemotherapy following her radiation therapy. Her most recent PET scan from January 2020 showed a positive partial treatment response to the right upper lobe neoplasm, no new metastatic disease was identified. Her CT of the chest from April 2020 showed a large area of consolidative masslike process in the right upper lobe that was similar to the prior exam with no definite significant interval change. Patient presented to the emergency department on 09/17/2020 for evaluation of difficulty breathing. Her shortness of breath got worse this morning. Patient denied any fever or chills, she has had a cough, but no chest pain or palpitations. Chest had no nausea vomiting diarrhea, no abdominal pain, no headaches, no numbness or weakness. Patient's CODE STATUS is do not resuscitate. Her chest x-ray shows background emphysematous changes and right-sided volume loss, new small to moderate-sized right pleural effusion, new mild cardiac with, worsening right upper lung masslike consolidation corresponding to the area of hypermetabolic uptake on the PET scan reflecting enlarging neoplasm and worsening postob structive atelectasis. CTA chest was obtained showing no evidence of for acute pulmonary embolism, and moderate to advanced emphysematous change, new small to moderate-sized right pleural effusion and tiny left pleural effusion. New alveolar and interstitial edema, and interval progression in the right upper lobe mass or neoplasm and postobstructive atelectasis. EKG showed A. fib with a rate of 105 BPM, with nonspecific ST abnormality. Labs have been reviewed, showing leukocytosis with what blood cell, 16.3, hemoglobin of 6.4, INR 1, sodium was 140, potassium 4.7, CO2 is 20, B1 is 23, creatinine 0.87, plasma lactic acid was 5.5, patient was given IV fluids, and lactic acid came down to 2 .8, troponin was 0.032, proBNP was 19,009 100, LDH was 639. Patient was placed on BiPAP support with pressures of 10 and 5, and FiO2 of 40%, she will receiving blood, currently her pulse ox is 96% on 40% FiO2, she is afebrile, she was started on breathing treatments, and IV steroids. She was given a milligram of Ativan for anxiety, currently her breathing has improved, she is tolerating BiPAP support well. Appears to be in no acute distress. Review of Systems All systems: negative Constitutional: Denies chills, Denies fever Eyes: denies blurred vision, denies pain Ears, nose, mouth and throat: Denies headache, Denies sore throat Cardiovascular: Denies chest pain, Denies shortness of breath Respiratory: Reports dyspnea, Denies cough Gastrointestinal: Denies abdominal pain, Denies diarrhea, Denies nausea, Denies vomiting Genitourinary: Denies dysuria, Denies hematuria Musculoskeletal: Denies myalgias Integumentary: Denies pruritus, Denies rash Neurological: Denies numbness, Denies weakness Psychiatric: Denies anxiety, Denies depression Endocrine: Denies fatigue, Denies weight change Past Medical History Past Medical History: Cancer, COPD, Hyperlipidemia, Osteoarthritis (OA), Respiratory Disorder Additional Past Medical History / Comment(s): - fracture ribs rt, emphysema, L migue cancer History of Any Multi-Drug Resistant Organisms: None Reported Past Surgical History: Breast Surgery, Tonsillectomy, Tubal Ligation Additional Past Surgical History / Comment(s): LEFT MASTECOMY benign . LEFT FOOT FX .LEFT RIBS FX. LEFT TOES FX Past Anesthesia/Blood Transfusion Reactions: No Reported Reaction Past Psychological History: No Psychological Hx Reported Smoking Status: Former smoker Past Alcohol Use History: None Reported Additional Past Alcohol Use History / Comment(s): Patient smokes three cigarettes a day. Past Drug Use History: None Reported - Past Family History Mother Family Medical History: Cancer Additional Family Medical History / Comment(s): breast Father Family Medical History: Cancer Medications and Allergies Home Medications Medication Instructions Recorded Confirmed Type Fluticasone/Vilanterol [Breo 1 puff INHALATION RT-DAILY 12/28/18 09/17/20 History Ellipta 200-25 Mcg INH] Albuterol Inhaler [Ventolin Hfa 2 puff INHALATION RT-Q4H PRN 09/17/20 09/17/20 History Inhaler] Albuterol Nebulized [Ventolin 2.5 mg INHALATION RT-Q4H PRN 09/17/20 09/17/20 His tory Nebulized] Apixaban [Eliquis] 5 mg PO BID 09/17/20 09/17/20 History Atorvastatin Calcium [Lipitor] 40 mg PO DAILY 09/17/20 09/17/20 History Furosemide [Lasix] 20 mg PO DAILY PRN 09/17/20 09/17/20 History LORazepam [Ativan] 0.5 mg PO BID PRN 09/17/20 09/17/20 History Megestrol [Megace] 800 mg PO DAILY 09/17/20 09/17/20 History Metoprolol Tartrate [Lopressor] 25 mg PO BID 09/17/20 09/17/20 History Midodrine HCl 10 mg PO TID PRN 09/17/20 09/17/20 History Ondansetron [Zofran] 4 mg PO Q8H PRN 09/17/20 09/17/20 History Pantoprazole Sodium [Protonix] 40 mg PO DAILY 09/17/20 09/17/20 History Potassium Chloride ER [K-Dur 20] 20 meq PO DAILY PRN 09/17/20 09/17/20 History predniSONE 10 mg PO DAILY 09/17/20 09/17/20 History Allergies Allergy/AdvReac Type Severity Reaction Status Date / Time amoxicillin [From Augmentin] Allergy Diarrhea Verified 09/17/20 12:00 cefaclor [From Ceclor] Allergy Diarrhea Verified 09/17/20 12:00 clarithromycin [From Biaxin] Allergy Diarrhea Verified 09/17/20 12:00 clavulanic acid Allergy Diarrhea Verified 09/17/20 12:00 [From Augmentin] codeine AdvReac Nausea & Verified 09/17/20 12:00 Vomiting & Diarrhea Physical Exam Vitals: Vital Signs Temp Pulse Pulse Resp BP BP Pulse Ox 09/17/20 16:14 92 09/17/20 15:09 96.4 F L 95 14 122/56 96 09/17/20 14:15 97.5 F L 96 28 H 104/52 100 09/17/20 12:44 103 H 20 129/88 98 09/17/20 12:13 100 09/17/20 12:00 71 20 132/80 98 09/17/20 11:50 98 09/17/20 11:26 89 09/17/20 10:55 97.8 F 100 24 124/74 90 L Intake and Output 09/17/20 09/17/20 09/17/20 06:59 14:59 22:59 Other: Weight 49.442 kg 49.442 kg GENERAL EXAM: Alert, pleasant, 79-year-old white female, on BiPAP, with pressures of 10 and 5, and FiO2 of 40% comfortable in no apparent distress. HEAD: Normocephalic/atraumatic. EYES: Normal reaction of pupils, equal size. Conjunctiva pink, sclera white. NOSE: Clear with pink turbinates. THROAT: No erythema or exudates. NECK: No masses, no JVD, no thyroid enlargement, no adenopathy. CHEST: No chest wall deformity. Symmetrical expansion. LUNGS: Equal air entry with scattered rhonchi, coarse breath sounds CVS: Regular rate and rhythm, normal S1 and S2, no gallops, no murmurs, no rubs ABDOMEN: Soft, nontender. No hepatosplenomegaly, normal bowel sounds, no guarding or rigidity. EXTREMITIES: No clubbing, 1+ pedal ankle and pretibial edema no cyanosis, 2+ pulses and upper and lower extremities. MUSCULOSKELETAL: Muscle strength and tone normal. SPINE: No scoliosis or deformity SKIN: No rashes CENTRAL NERVOUS SYSTEM: Alert and oriented -3. No focal deficits, tone is normal in all 4 extremities. PSYCHIATRIC: Alert and oriented -3. Appropriate affect. Intact judgment and insight. Results - Laboratory Findings CBC and BMP: 09/17/20 11:34 09/17/20 11:06 PT/INR, D-dimer PT 10.3 sec (9.0-12.0) 09/17/20 11:06 INR 1.0 (<1.2) 09/17/20 11:06 Abnormal lab findings: Abnormal Labs 09/17/20 09/17/20 09/17/20 11:06 11:06 11:06 WBC RBC Hgb Hct MCH MCHC RDW Neutrophils # Retic Count APTT 17.7 L VBG HCO3 Carbon Dioxide 20 L BUN 23 H Glucose 230 H Plasma Lactic Acid Markus 5.5 H* Lactate Dehydrogenase Albumin 3.4 L Crossmatch 09/17/20 09/17/20 09/17/20 11:06 11:34 13:35 WBC 16.3 H RBC 3.08 L Hgb 6.4 L* Hct 25.5 L MCH 20.7 L MCHC 25.0 L RDW 18.8 H Neutrophils # 14.4 H Retic Count APTT VBG HCO3 21 L Carbon Dioxide BUN Glucose Plasma Lactic Acid Markus Lactate Dehydrogenase Albumin Crossmatch See Detail 09/17/20 09/17/20 09/17/20 13:35 13:35 14:55 WBC RBC Hgb Hct MCH MCHC RDW Neutrophils # Retic Count 3.0 H APTT VBG HCO3 Carbon Dioxide BUN Glucose Plasma Lactic Acid Markus 2.8 H* Lactate Dehydrogenase 639 H Albumin Crossmatch - Diagnostic Findings Chest x-ray: report reviewed, image reviewed CT scan - chest: report reviewed, image reviewed Additional studies: EKG reviewed Assessment and Plan Plan: Assessment: #1. Acute on chronic hypoxic respiratory failure, multifactorial, likely related to acute exacerbation of systolic CHF, possibility right-sided pneumonia is not excluded. No evidence of PE on CTA chest #2. History of squamous cell lung cancer diagnosed in 2017, status post chemoradiation, currently not on any treatment, CTA chest shows interval progression in the right upper lobe mass and postobstructive atelectasis #3. Advanced stage III COPD on home oxygen at 3 L/m #4. Atrial fibrillation with slightly tachycardic rate #5. Chronic and ongoing tobacco dependence #6. Hyperlipidemia #7. Anorexia/cachexia syndrome of malignancy #8. Osteoarthritis #9. Acute on chronic anemia Plan: Continue current medical treatment, will add IV steroids, BiPAP support, nebulized bronchodilators, continue antibiotics. Patient will receive 1 unit of packed red blood cells. We'll stop the IV fluids. Blood cultures are pending. Overall prognosis is poor based on history of lung malignancy, multiple comorbidities, and advanced COPD. We'll place a consultation for palliative care, continue supportive care I performed a history & physical examination of the patient and discussed their management with my nurse practitioner, Lorie Waterman. I reviewed the nurse practitioner's note and agree with the documented findings and plan of care. Lung sounds are positive for scattered rhonchi. The findings and the impression was discussed with the patient. I attest to the documentation by the nurse practitioner. Time with Patient: Greater than 30
[2020-09-17 17:17] LABS: Glucose,Whole Blood 160 mg/dL (75-99)
--- NOTE | 2020-09-17 18:17 | P.CONS ---
History of Present Illness - Reason for Consult Consult date: 09/17/20 Lung Cancer Requesting physician: Lex Lema - Chief Complaint sob - History of Present Illness This is a very nice lady who fell on slippery steps at her home on 03/2017,went to ER had a CXR which revealed a suspicious mass in RUL,had a CT scan of chest/abdomen/pelvis on 11/01/2017 which revealed [id number] mass in right upper lateral chest wall extending to bony thorax,axilla and causing rib destructions,also compression deformities in lumbar spine. CBC and CMP on 11/01/2017 were unremarkable. On 11/14/2017,CT guided biopsy of her lung mass was positive for squamous cell carcinoma. On 11/25/2017,brain MRI was negative for metastatic disease. On 11/26/2017,PET scan revealed suspicious uptake in RUL mass,rib invasivion,no additional metastatic disease compared to CT scan. PDL-1 was negative,the additional molecular studies revealed she was positive for TP53 mutation,EGFR/ALK/BRAK and other mutation were negative. She started concurrent chemoradiation on 12/20/2017 and completed treatment on 02/07/2018. Repeat CT scan on 03/15/2018 Repeat PET scan on 09/02/2018 revealed disease progression in her lung On 10/10/2018,she started opdivo On 10/31/2018,brain MRI was negative for metastatic disease. Her last opdivo treatment was on 12/14/2018,it was held due to pneumonia and COPD,there was no evidence of pneumonitis on CT scan done while inpatient on 12/29/2018,was admitted to hospital for a week. Opdivo was resumed on 02/13/2019 On 04/03/2019,repeat CT scan revealed relatively stable disease On 07/12/2019,repeat CT scan revealed stable disease. On 10/30/2019,repeat CT scan of chest revealed worsening opacity and inflammatory changes in RUL,difficult to determine post XRt changes vs progression of her disease. On 11/08/2019,opdivo was held due to dyspnea, was not restarted for concern of possible immune related effects. On 02/02/2020,repeat PET scan revealed stable disease. On 05/06/[address] scan of chest revealed stable finding. She was last seen 08/29/[address] Stevens and had complaints of feeling tired,severe chronic exertional dyspnea, limiting her activities, in chair most of the day,on home O2,mild dry cough,no pain,her appetite is fine,on prednisone 10 mg/day,she has some ankle edema. Being followed by pulmonary. She presents very weak in respiratory failure requiring bipap. Her performance status has been decreasing persistently over the past few months. It is not clear if this is related to cancer progression versus end stage COPD although at this time given her functional status and persistent worsening chronic hypoxia hospice consultation is resonable. Discussed with patient and hospice info cons ult is in place Review of Systems All systems: negative Constitutional: Reports as per HPI Past Medical History Past Medical History: Cancer, COPD, Hyperlipidemia, Osteoarthritis (OA), Respiratory Disorder Additional Past Medical History / Comment(s): - fracture ribs rt, emphysema, Lung cancer History of Any Multi-Drug Resistant Organisms: None Reported Past Surgical History: Breast Surgery, Tonsillectomy, Tubal Ligation Additional Past Surgical History / Comment(s): LEFT MASTECOMY benign . LEFT FOOT FX .LEFT RIBS FX. LEFT TOES FX Past Anesthesia/Blood Transfusion Reactions: No Reported Reaction Past Psychological History: No Psychological Hx Reported Smoking Status: Former smoker Past Alcohol Use History: None Reported Past Drug Use History: None Reported - Past Family History Mother Family Medical History: Cancer Additional Family Medical History / Comment(s): breast Father Family Medical History: Cancer Medications and Allergies Home Medications Medication Instructions Recorded Confirmed Type Fluticasone/Vilanterol [Breo 1 puff INHALATION RT-DAILY 12/28/18 09/17/20 History Ellipta 200-25 Mcg INH] Albuterol Inhaler [Ventolin Hfa 2 puff INHALATION RT-Q4H PRN 09/17/20 09/17/20 History Inhaler] Albuterol Nebulized [Ventolin 2.5 mg INHALATION RT-Q4H PRN 09/17/20 09/17/20 Hi story Nebulized] Apixaban [Eliquis] 5 mg PO BID 09/17/20 09/17/20 History Atorvastatin Calcium [Lipitor] 40 mg PO DAILY 09/17/20 09/17/20 History Furosemide [Lasix] 20 mg PO DAILY PRN 09/17/20 09/17/20 History LORazepam [Ativan] 0.5 mg PO BID PRN 09/17/20 09/17/20 History Megestrol [Megace] 800 mg PO DAILY 09/17/20 09/17/20 History Metoprolol Tartrate [Lopressor] 25 mg PO BID 09/17/20 09/17/20 History Midodrine HCl 10 mg PO TID PRN 09/17/20 09/17/20 History Ondansetron [Zofran] 4 mg PO Q8H PRN 09/17/20 09/17/20 History Pantoprazole Sodium [Protonix] 40 mg PO DAILY 09/17/20 09/17/20 History Potassium Chloride ER [K-Dur 20] 20 meq PO DAILY PRN 09/17/20 09/17/20 History predniSONE 10 mg PO DAILY 09/17/20 09/17/20 History Allergies Allergy/AdvReac Type Severity Reaction Status Date / Time amoxicillin [From Augmentin] Allergy Diarrhea Verified 09/17/20 12:00 cefaclor [From Ceclor] Allergy Diarrhea Verified 09/17/20 12:00 clarithromycin [From Biaxin] Allergy Diarrhea Verified 09/17/20 12:00 clavulanic acid Allergy Diarrhea Verified 09/17/20 12:00 [From Augmentin] codeine AdvReac Nausea & Verified 09/17/20 12:00 Vomiting & Diarrhea Physical Exam Vitals: Vital Signs Temp Pulse Resp BP Pulse Ox 09/17/20 12:13 100 09/17/20 11:50 98 09/17/20 11:26 89 09/17/20 10:55 97.8 F 100 24 124/74 90 L Intake and Output 09/16/20 09/17/20 09/17/20 22:59 06:59 14:59 Other: Weight 49.442 kg - Constitutional General appearance: cooperative - EENT Eyes: EOMI, PERRLA ENT: NA/AT, normal oropharynx - Respiratory bipap Respiratory: bilateral: diminished (Throughout), wheezing (Scattered) - Cardiovascular Rhythm: regularly irregular - Gastrointestinal General gastrointestinal: normal bowel sounds, soft - Integumentary Integumentary: pale - Neurologic non focal - Musculoskeletal Musculoskeletal: generalized weakness - Psychiatric Psychiatric: A&O x's 3 Results CBC & Chem 7: 09/17/20 11:34 09/17/20 11:06 Labs: Abnormal Lab Results - Last 24 Hours (Table) 09/17/20 09/17/20 09/17/20 Range/Units 11:06 11:06 11:06 WBC (3.8-10.6) k/uL RBC (3.80-5.40) m/uL Hgb (11.4-16.0) gm/dL Hct (34.0-46.0) % MCH (25.0-35.0) pg MCHC (31.0-37.0) g/dL RDW (11.5-15.5) % Neutrophils # (1.3-7.7) k/uL APTT 17.7 L (22.0-30.0) sec VBG HCO3 (24-28) mmol/L Carbon Dioxide 20 L (22-30) mmol/L BUN 23 H (7-17) mg/dL Glucose 230 H (74-99) mg/dL Plasma Lactic Acid Markus 5.5 H* (0.7-2.0) mmol/L Albumin 3.4 L (3.5-5.0) g/dL 09/17/20 09/17/20 Range/Units 11:06 11:34 WBC 16.3 H (3.8-10.6) k/uL RBC 3.08 L (3.80-5.40) m/uL Hgb 6.4 L* (11.4-16.0) gm/dL Hct 25.5 L (34.0-46.0) % MCH 20.7 L (25.0-35.0) pg MCHC 25.0 L (31.0-37.0) g/dL RDW 18.8 H (11.5-15.5) % Neutrophils # 14.4 H (1.3-7.7) k/uL APTT (22.0-30.0) sec VBG HCO3 21 L (24-28) mmol/L Carbon Dioxide (22-30) mmol/L BUN (7-17) mg/dL Glucose (74-99) mg/dL Plasma Lactic Acid Markus (0.7-2.0) mmol/L Albumin (3.5-5.0) g/dL CT scan - chest: report reviewed Assessment and Plan Plan: Acute on Chronic Respiratory Failure: - Currently on Bipap - CT of the chest to evaluate for progression versus other with end stage COPD Poor Performance Status: - Not candidate in the picture of a progressive malignancy for systemic treatme nt Non-small Cell Lung Cancer: - Last treated with Immune therapy and unable to tolerate with underlying chronic lung disease Overall prognostic factors are poor Evaluate with CT for further clarification and options Hospice info is resonable at this time Continue supportive care Transfuse PRBC today hemoglobin 6.7 Physician attest: I have completed the full history and physical and agree with above dictated as a scribe.
[2020-09-17] MEDS: INSULIN ASPART (NovoLOG) 100 UNIT/ML VIAL SQ SCH ×2 (18:46→22:52)
[2020-09-17] MEDS: methylPREDNISolone SOD SUCCI 40 MG/ML 1 ML VIAL IV SCH ×2 (18:46→23:50)
[2020-09-17 20:09] LABS: Glucose,Whole Blood 128 mg/dL (75-99)
[2020-09-17] MEDS: FORMOTEROL FUMARATE 20 MCG/2 ML NEBU INHALATION SCH (20:25)
[2020-09-17] MEDS: BUDESONIDE 1 MG/2 ML NEBU INHALATION SCH (20:25)
[2020-09-17] MEDS ORDERED: FUROSEMIDE 10 MG/ML 4 ML VIAL IV STA (20:37)
--- NOTE | 2020-09-17 21:57 | P.HPIM ---
History of Present Illness H&P Date: 09/17/20 Chief Complaint: Short of breath History of presenting complaint: This is a 79-year-old patient of Dr. Dwayne Hester. 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 She was put on concurrent chemoradiation and completed treatment on January 2018. Repeat PET scan in August 2018 revealed disease progression in the lung. Patient was started on Opdivo. Last PET scan was in January 2020 revealing stable disease. She now presents to the ER with good of a short of breath. Decreased oral intake weak diet and rundown. Diminished functional status. Much worsening. When I try to get a history from the patient very difficult to do the same. Most of her history is obtained from other consultants in the ER. Patient's currently on a BiPAP rather short of breath. Did receive a unit of blood for hemoglobin of 6.4. Patient also wheezing. Review of systems: GEN.: Weight diagrammed down EYES: None HEENT: None NECK: None RESPIRATORY: Short of breath wheezing at rest CARDIOVASCULAR: None GASTROINTESTINAL: None GENITOURINARY: None MUSCULOSKELETAL: Joint pains LYMPHATICS: None HEMATOLOGICAL: None PSYCHIATRY: Feeling low NEUROLOGICAL: None Past medical history to include: COPD, hyperlipidemia,'s primary osteoarthritis,'s, cell lung cancer with metastatic disease treated with chemoradiation followed by Opdivo Social history: Smoker. No alcohol. Physical examination: VITAL SIGNS: 97.8, 100, 24, 124/74, 90% on BiPAP on presentation GENERAL: 10. Tired rundown with a BiPAP short of breath tired. EYES: Pupils equal. Conjunctiva normal. HEENT: External appearance of nose and ears normal, oral cavity dry. NECK: JVD unable to assess masses not palpable. HEART: First and second heart sounds are normal; no edema. LUNGS: Respiratory rate increased, ecstasy muscles are working, not able to speak in full symptoms, no diminished breath sounds on expiration and wheezing. ABDOMEN: Soft, nontender, liver spleen not palpable, no masses palpable. PSYCH: Lethargic but arousable daily able to answer questionsl. NEUROLOGICAL: Cranial nerves grossly intact; no facial asymmetry, power and sensation grossly intact. LYMPHATICS: No lymph nodes palpable in the axilla and neck INVESTIGATIONS, reviewed in the clinical context: White count 16.3 hemoglobin 6.4 platelets 402 potassium 4.7 creatinine 0.87 bun 23 Lactic acid 5.5 troponin I 0.032 proBNP 19,900 albumin 3.4 Chest x-ray film personally reviewed by [id number] mass with possible collapse possible fluid EKG tracing personally reviewed by me-possible atrial fibrillation, nonspecific ST segment changes Computed tomography scan of the chest-no PE. Moderate advanced emphysematous changes. Moderate right-sided pleural effusion some interstitial edema. Progression of right upper lobe mass and postobstructive atelectasis Assessment: -Patient with a diagnosis of squamous cell cancer of the lung in October 2017. Did receive chemoradiation. Subsequent worsening. Put on Opdivo. All seems to have radiological worsening of the same. Previously metastatic to the bones -Acute COPD exacerbation in a current smoker -Chronic nicotine dependence patient cigarette smoker -Worsening symptomatically anemia that of malignancy and decreased nutritional status -Right upper lobe collapse postobstructive -Primary osteoarthritis -Cannot rule out postobstructive pneumonia -Persistent atrial fibrillation -Acute hypoxic respiratory failure requiring BiPAP -Advancing medical debility from underlying malignancy -Mild protein calorie malnutrition decreased oral intake Plan: Patient was given a unit of blood. Will be put on DuoNeb every 4 hours. Inhal ed steroids. IV Solu-Medrol. Home medications resumed. Consultation to pulmonary and oncology. Prognosis does not look good, because of poor functional status frailty and radiological worsening. Past Medical History Past Medical History: Cancer, COPD, Hyperlipidemia, Osteoarthritis (OA), Respiratory Disorder Additional Past Medical History / Comment(s): - fracture ribs rt, emphysema, Lung cancer History of Any Multi-Drug Resistant Organisms: None Reported Past Surgical History: Breast Surgery, Tonsillectomy, Tubal Ligation Additional Past Surgical History / Comment(s): LEFT MASTECOMY benign . LEFT FOOT FX .LEFT RIBS FX. LEFT TOES FX Past Anesthesia/Blood Transfusion Reactions: No Reported Reaction Past Psychological History: No Psychological Hx Reported Smoking Status: Former smoker Past Alcohol Use History: None Reported Past Drug Use History: None Reported - Past Family History Mother Family Medical History: Cancer Additional Family Medical History / Comment(s): breast Father Family Medical History: Cancer Medications and Allergies Home Medications Medication Instructions Recorded Confirmed Type Fluticasone/Vilanterol [Breo 1 puff INHALATION RT-DAILY 12/28/18 09/17/20 History Ellipta 200-25 Mcg INH] Albuterol Inhaler [Ventolin Hfa 2 puff INHALATION RT-Q4H PRN 09/17/20 09/17/20 History Inhaler] Albuterol Nebulized [Ventolin 2.5 mg INHALATION RT-Q4H PRN 09/17/20 09/17/20 History Nebulized] Apixaban [Eliquis] 5 mg PO BID 09/17/20 09/17/20 History Atorvastatin Calcium [Lipitor] 40 mg PO DAILY 09/17/20 09/17/20 History Furosemide [Lasix] 20 mg PO DAILY PRN 09/17/20 09/17/20 History LORazepam [Ativan] 0.5 mg PO BID PRN 09/17/20 09/17/20 History Megestrol [Megace] 800 mg PO DAILY 09/17/20 09/17/20 History Metoprolol Tartrate [Lopressor] 25 mg PO BID 09/17/20 09/17/20 History Midodrine HCl 10 mg PO TID PRN 09/17/20 09/17/20 History Ondansetron [Zofran] 4 mg PO Q8H PRN 09/17/20 09/17/20 History Pantoprazole Sodium [Protonix] 40 mg PO DAILY 09/17/20 09/17/20 History Potassium Chloride ER [K-Dur 20] 20 meq PO DAILY PRN 09/17/20 09/17/20 History predniSONE 10 mg PO DAILY 09/17/20 09/17/20 History Allergies Allergy/AdvReac Type Severity Reaction Status Date / Time amoxicillin [From Augmentin] Allergy Diarrhea Verified 09/17/20 12:00 cefaclor [From Ceclor] Allergy Diarrhea Verified 09/17/20 12:00 clarithromycin [From Biaxin] Allergy Diarrhea Verified 09/17/20 12:00 clavulanic acid Allergy Diarrhea Verified 09/17/20 12:00 [From Augmentin] codeine AdvReac Nausea & Verified 09/17/20 12:00 Vomiting & Diarrhea Physical Exam Vitals: Vital Signs Temp Pulse Pulse Resp BP BP Pulse Ox 09/17/20 20:47 106 H 09/17/20 20:39 106 H 09/17/20 20:26 106 H 99 09/17/20 20:11 16 09/17/20 17:40 97.6 F 94 16 107/54 100 09/17/20 17:18 95 10/21/20 17:10 97.6 F 96 16 107/51 100 09/17/20 17:00 97.5 F L 95 16 121/62 97 09/17/20 16:25 94 09/17/20 16:14 92 09/17/20 15:09 96.4 F L 95 14 122/56 96 09/17/20 14:15 97.5 F L 96 28 H 104/52 100 09/17/20 12:44 103 H 20 129/88 98 09/17/20 12:13 100 09/17/20 12:00 71 20 132/80 98 09/17/20 11:50 98 09/17/20 11:26 89 09/17/20 10:55 97.8 F 100 24 124/74 90 L Intake and Output 09/17/20 09/17/20 09/17/20 06:59 14:59 22:59 Intake Total 310 Balance 310 Intake: Oral 0 Blood Product 310 Rc As-1 Unit 310 [id number] Other: Voiding Method Bedpan Weight 49.442 kg 49.442 kg Results CBC & Chem 7: 09/17/20 11:34 09/17/20 11:06 Labs: Abnormal Lab Results - Last 24 Hours (Table) 09/17/20 09/17/20 09/17/20 Range/Units 11:06 11:06 11:06 WBC (3.8-10.6) k/uL RBC (3.80-5.40) m/uL Hgb (11.4-16.0) gm/dL Hct (34.0-46.0) % MCH (25.0-35.0) pg MCHC (31.0-37.0) g/dL RDW (11.5-15.5) % Neutrophils # (1.3-7.7) k/uL Retic Count (0.5-2.0) % APTT 17.7 L (22.0-30.0) sec VBG HCO3 (24-28) mmol/L Carbon Dioxide 20 L (22-30) mmol/L BUN 23 H (7-17) mg/dL Glucose 230 H (74-99) mg/dL POC Glucose (mg/dL) (75-99) mg/dL Plasma Lactic Acid Markus 5.5 H* (0.7-2.0) mmol/L Lactate Dehydrogenase (313-618) U/L Albumin 3.4 L (3.5-5.0) g/dL Crossmatch 09/17/20 09/17/20 09/17/20 Range/Units 11:06 11:34 13:35 WBC 16.3 H (3.8-10.6) k/uL RBC 3.08 L (3.80-5.40) m/uL Hgb 6.4 L* (11.4-16.0) gm/dL Hct 25.5 L (34.0-46.0) % MCH 20.7 L (25.0-35.0) pg MCHC 25.0 L (31.0-37.0) g/dL RDW 18.8 H (11.5-15.5) % Neutrophils # 14.4 H (1.3-7.7) k/uL Retic Count (0.5-2.0) % APTT (22.0-30.0) sec VBG HCO3 21 L (24-28) mmol/L Carbon Dioxide (22-30) mmol/L BUN (7-17) mg/dL Glucose (74-99) mg/dL POC Glucose (mg/dL) (75-99) mg/dL Plasma Lactic Acid Markus (0.7-2.0) mmol/L Lactate Dehydrogenase (313-618) U/L Albumin (3.5-5.0) g/dL Crossmatch See Detail 09/17/20 09/17/20 09/17/20 Range/Units 13:35 13:35 14:55 WBC (3.8-10.6) k/uL RBC (3.80-5.40) m/uL Hgb (11.4-16.0) gm/dL Hct (34.0-46.0) % MCH (25.0-35.0) pg MCHC (31.0-37.0) g/dL RDW (11.5-15.5) % Neutrophils # (1.3-7.7) k/uL Retic Count 3.0 H (0.5-2.0) % APTT (22.0-30.0) sec VBG HCO3 (24-28) mmol/L Carbon Dioxide (22-30) mmol/L BUN (7-17) mg/dL Glucose (74-99) mg/dL POC Glucose (mg/dL) (75-99) mg/dL Plasma Lactic Acid Markus 2.8 H* (0.7-2.0) mmol/L Lactate Dehydrogenase 639 H (313-618) U/L Albumin (3.5-5.0) g/dL Crossmatch 09/17/20 09/17/20 09/17/20 Range/Units 17:15 17:34 20:07 WBC (3.8-10.6) k/uL RBC (3.80-5.40) m/uL Hgb (11.4-16.0) gm/dL Hct (34.0-46.0) % MCH (25.0-35.0) pg MCHC (31.0-37.0) g/dL RDW (11.5-15.5) % Neutrophils # (1.3-7.7) k/uL Retic Count (0.5-2.0) % APTT (22.0-30.0) sec VBG HCO3 (24-28) mmol/L Carbon Dioxide (22-30) mmol/L BUN (7-17) mg/dL Glucose (74-99) mg/dL POC Glucose (mg/dL) 160 H 128 H (75-99) mg/dL Plasma Lactic Acid Markus 2.1 H* (0.7-2.0) mmol/L Lactate Dehydrogenase (313-618) U/L Albumin (3.5-5.0) g/dL Crossmatch Thrombosis Risk Factor Assmnt - Choose All That Apply Other Risk Factors: Yes Each Risk Factor Represents 3 Points: Age 75 years or older Thrombosis Risk Factor Assessment Total Risk Factor Score: 3 Thrombosis Risk Factor Assessment Level: Moderate Risk
[2020-09-17 22:21] LABS: Anisocytosis Slight; Basophils # (A) 0.1 k/uL (0-0.2); Basophils % (A) 0 %; Eosinophils % (A) 0 %; HCT 31.7 % (34.0-46.0); Hypochromasia Marked; Lymphocytes # (A) 0.4 k/uL (1.0-4.8); Lymphocytes % (A) 2 %; MCH 23.7 pg (25.0-35.0); MCHC 27.6 g/dL (31.0-37.0); MCV 85.9 fL (80.0-100.0); Mean Platelet Volume 7.4; Monocytes # (A) 0.2 k/uL (0-1.0); Monocytes % (A) 1 %; Neutrophils # (A) 19.9 k/uL (1.3-7.7); Neutrophils % (A) 96 %; Platelet Count 344 k/uL (150-450); Poikilocytosis Moderate; RBC 3.68 m/uL (3.80-5.40); RDW 18.6 % (11.5-15.5); WBC 20.7 k/uL (3.8-10.6)
[2020-09-17 22:37] LABS: HGB 8.7 gm/dL (11.4-16.0)
[2020-09-17 23:10] LABS: Ovalocytes Present; Poikilocytosis (M) Present
[2020-09-18 02:09] LABS: Ferritin 61.2 ng/mL (10.0-291.0)
[2020-09-18 03:30] LABS: % Iron Saturation 3.1 (12.00-45.00); Folate, Serum 12.7 ng/mL
[2020-09-18] MEDS: methylPREDNISolone SOD SUCCI 40 MG/ML 1 ML VIAL IV SCH ×3 (05:41→17:47)
[2020-09-18 06:09] LABS: Glucose,Whole Blood 135 mg/dL (75-99)
[2020-09-18] MEDS: INSULIN ASPART (NovoLOG) 100 UNIT/ML VIAL SQ SCH ×4 (06:21→21:30)
[2020-09-18] MEDS: IPRATROPIUM-ALBUTEROL 3 ML NEB INHALATION SCH ×4 (08:41→19:57)
[2020-09-18] MEDS: BUDESONIDE 1 MG/2 ML NEBU INHALATION SCH ×2 (08:41→19:56)
[2020-09-18] MEDS: FORMOTEROL FUMARATE 20 MCG/2 ML NEBU INHALATION SCH ×2 (08:41→19:56)
[2020-09-18 11:18] LABS: Calcium 8.9 mg/dL (8.4-10.2); Magnesium 1.9 mg/dL (1.6-2.3); Potassium 4.1 mmol/L (3.5-5.1)
[2020-09-18] MEDS ORDERED: LEVOFLOXACIN 750MG-D5W PMX 750 MG in DEXTROSE/WATER 1 150ML.BAG IVPB SCH (12:00)
[2020-09-18] MEDS: METOPROLOL TARTRATE 25 MG TAB PO SCH ×2 (12:24→21:05)
[2020-09-18] MEDS: APIXABAN 5 MG TAB PO SCH ×2 (12:24→21:05)
--- NOTE | 2020-09-18 13:31 | ECHOF ---
Referral Reason:cardiomyopathy MEASUREMENTS -------- HEIGHT: 160.0 cm WEIGHT: 54.4 kg BP: IVSd: 1.2 cm (0.6 - 1.1) LVIDd: 4.6 cm (3.9 - 5.3) LVPWd: 1.2 cm (0.6 - 1.1) IVSs: 1.4 cm LVIDs: 4.2 cm LVPWs: 1.3 cm LAESV Index (A-L): 42.63 ml/m Ao Diam: 2.5 cm (2.0 - 3.7) AV Cusp: 1.7 cm (1.5 - 2.6) LA Diam: 2.6 cm (2.7 - 3.8) MV EXCURSION: 12.148 mm (> 18.000) MV EF SLOPE: 85 mm/s (70 - 150) EPSS: 2.5 cm RAP: 5.00 mmHg RVSP: 45.80 mmHg FINDINGS -------- Resting tachycardia (HR>100bpm). This was a technically adequate study. The left ventricle is mildly dilated. There is mild concentric left ventricular hypertrophy. Over all left ventricular systolic function is severely impaired with, an EF between 25 - 30 %. The right ventricle is normal in size. LA is severely dilated >40 ml/m2 The right atrial size is normal. The aortic valve was not well visualized. The mitral valve is normal. The mitral valve leaflets are mildly thickened. There is severe predo minantly posteriorly directed secondary mitral regurigtation with posterior leaflet tethering. The tricuspid valve appears structurally normal. Severe tricuspid regurgitation present. There is mild pulmonary hypertension. The right ventricular systolic pressure, as measured by Doppler, is 4 5.80mmHg. There is no pulmonic regurgitation present. The aortic root size is normal. Normal inferior vena cava with normal inspiratory collapse consistent with estimated right atrial pre ssure of 5 mmHg. There is no pericardial effusion. CONCLUSIONS -------- 1. The left ventricle is mildly dilated. 2. There is mild concentric left ventricular hypertrophy. 3. Overall left ventricular systolic function is severely impaired with, an EF between 25 - 30 %. 4. LA is severely dilated >40 ml/m2 5. The mitral valve leaflets are mildly thickened. 6. There is severe predominantly posteriorly directed secondary mitral regurigtation with posterior l eaflet tethering. 7. Severe tricuspid regurgitation present. 8. There is mild pulmonary hypertension. 9. The right ventricular systolic pressure, as measured by Doppler, is 45.80mmHg. 10. There is no pericardial effusion. HYDRAULIC CORRUGATING MACHINE OPERATOR: Yeny Vines RDCS
--- NOTE | 2020-09-18 14:40 | P.CRDCN ---
History of Present Illness History of present illness: HISTORY OF PRESENTING ILLNESS This is a pleasant 79-year-old female past medical history significant for squamous cell lung cancer, COPD, dyslipidemia, chronic systolic heart failu re, paroxysmal atrial fibrillation and chronic nicotine dependence. She does not follow in the office with a executive chairman of the board. She presented to the hospital with symptoms of difficulty in breathing. She is currently maintained on BiPAP. Telemetry tracings reveal multifocal atrial tachycardia as well as wide complex tachycardia runs of less than 5 beats. She is asymptomatic during these episodes. She denies symptoms of chest pain. She denies worsening shortness of breath and feels as though her breathing is "as good as spinning" . She denies dizziness or palpitations. We have been asked to see in consultation for episodes of ventricular tachycardia on telemetry. Echocardiogram obtained reveals worsening LV function with ejection fraction 25-30% that was previously 40-45, severe predominantly posterior directed secondary MR with posterior leaflet tethering, severe TR and mild pulmonary hypertension with an RVSP of 45 mmHg. DIAGNOSTICS EKG reveals A. fib with heart rate of 105 with a PVC and nonspecific ST abnormalities. Chest xray underlying emphysematous changes new small to moderate-sized right pleural effusion, worsening right upper lung masslike consolidation and mild cardiomegaly. Laboratory reviewed, PVC 20.7, hemoglobin 8.7, platelets 344, sodium 141, potassium 4.1, creatinine 1.05, magnesium 1.9, troponin negative 1, NT proBNP 19,900. Current cardiac medications include Lopressor 25 mg twice a day, Eliquis 5 mg twice a day, Lasix 20 mg daily as needed for lower extremity edema and daily potassium when she takes the Lasix. REVIEW OF SYSTEMS At the time of my exam: CONSTITUTIONAL: Denies fever or chills. CARDIOVASCULAR: Complains of shortness of breath, at her baseline. Denies chest pain, orthopnea, PND or palpitations. RESPIRATORY: Denies cough. GASTROINTESTINAL: Denies abdominal pain, diarrhea, constipation, nausea or vomiting. MUSCULOSKELETAL: Denies myalgias. NEUROLOGIC: Denies numbness, tingling or weakness. ENDOCRINE: Denies fatigue, weight change, polydipsia or polyurina. GENITOURINARY: Denies burning, hematuria or urgency with micturation. HEMATOLOGIC: Denies history of anemia or bleeding. PHYSICAL EXAMINATION Blood pressure 128/58 heart rate 123 afebrile and maintaining oxygen saturation on nasal cannula. CONSTITUTIONAL: No apparent distress. HEENT: Head is normocephalic. Pupils are equal, round. Sclerae anicteric. Mucous membranes of the mouth are moist. No JVD. No carotid bruit. CHEST EXAMINATION: Lungs are clear to auscultation. No chest wall tenderness is noted on palpation or with deep breathing. Diminished bilaterally, bibasilar rales. HEART EXAMINATION: Irregular rate and rhythm. S1, S2 heard. Systolic ejection murmur at the apex, no gallops or rub. ABDOMEN: Soft, nontender. Positive bowel sounds. EXTREMITIES: 2+ peripheral pulses, 1+ bilateral lower extremity pitting edema and no calf tenderness. NEUROLOGIC EXAMINATION: Patient is awake, alert. ASSESSMENT Non-sustained ventricular tachycardia Paroxysmal atrial fibrillation on eliquis. Currently in sinus mechanism. Multi-focal atrial tachycardia Acute on chronic systolic heart failure Squamous cell carcinoma COPD Leukocytosis Chronic nicotine dependence PLAN Given her clinical picture we would recommend diuresis however the patient is being discharged home on hospice. This is an appropriate plan given her poor prognosis. Thank you kindly for this consultation. Nurse Practitioner note has been reviewed, I agree with a documented findings and plan of care. Patient was seen and examined. Past Medical History Past Medical History: Cancer, COPD, Hyperlipidemia, Osteoarthritis (OA), Respiratory Disorder Additional Past Medical History / Comment(s): - fracture ribs rt, emphysema, Lung cancer History of Any Multi-Drug Resistant Organisms: None Reported Past Surgical History: Breast Surgery, Tonsillectomy, Tubal Ligation Additional Past Surgical History / Comment(s): LEFT MASTECOMY benign . LEFT FOOT FX .LEFT RIBS FX. LEFT TOES FX Past Anesthesia/Blood Transfusion Reactions: No Reported Reaction Past Psychological History: No Psychological Hx Reported Smoking Status: Former smoker Past Alcohol Use History: None Reported Past Drug Use History: None Reported - Past Family History Mother Family Medical History: Cancer Additional Family Medical History / Comment(s): breast Father Family Medical History: Cancer Medications and Allergies Home Medications Medication Instructions Recorded Confirmed Type Fluticasone/Vilanterol [Breo 1 puff INHALATION RT-DAILY 12/28/18 09/17/20 History Ellipta 200-25 Mcg INH] Albuterol Inhaler [Ventolin Hfa 2 puff INHALATION RT-Q4H PRN 09/17/20 09/17/20 History Inhaler] Albuterol Nebulized [Ventolin 2.5 mg INHALATION RT-Q4H PRN 09/17/20 09/17/20 History Nebulized] Apixaban [Eliquis] 5 mg PO BID 09/17/20 09/17/20 History Furosemide [Lasix] 20 mg PO DAILY PRN 09/17/20 09/17/20 History LORazepam [Ativan] 0.5 mg PO BID PRN 09/17/20 09/17/20 History Megestrol [Megace] 800 mg PO DAILY 09/17/20 09/17/20 History Metoprolol Tartrate [Lopressor] 25 mg PO BID 09/17/20 09/17/20 History Ondansetron [Zofran] 4 mg PO Q8H PRN 09/17/20 09/17/20 History Pantoprazole Sodium [Protonix] 40 mg PO DAILY 09/17/20 09/17/20 History Potassium Chloride ER [K-Dur 20] 20 meq PO DAILY PRN 09/17/20 09/17/20 History predniSONE 10 mg PO DAILY 09/17/20 09/17/20 History Levofloxacin [Levaquin] 750 mg PO DAILY 1 Days #5 tab 09/18/20 Rx predniSONE 10 mg PO DAILY #30 tab 09/18/20 Rx Allergies Allergy/AdvReac Type Severity Reaction Status Date / Time amoxicillin [From Augmentin] Allergy Diarrhea Verified 09/17/20 12:00 cefaclor [From Ceclor] Allergy Diarrhea Verified 09/17/20 12:00 clarithromycin [From Biaxin] Allergy Diarrhea Verified 09/17/20 12:00 clavulanic acid Allergy Diarrhea Verified 09/17/20 12:00 [From Augmentin] codeine AdvReac Nausea & Verified 09/17/20 12:00 Vomiting & Diarrhea Physical Exam Vitals: Vital Signs Temp Pulse Pulse Resp BP BP Pulse Ox 09/18/20 12:00 98.9 F 123 H 18 128/58 92 L 09/18/20 11:52 104 H 09/18/20 11:34 108 H 09/18/20 09:07 104 H 09/18/20 08:57 108 H 09/18/20 08:56 108 H 09/18/20 08:42 108 H 09/18/20 08:00 98.9 F 122 H 22 126/62 95 09/18/20 06:33 23 95 09/18/20 03:43 104 H 22 09/18/20 03:35 98.5 F 104 H 22 129/61 96 09/17/20 23:55 99 29 H 09/17/20 23:45 96.5 F L 99 29 H 134/58 99 09/17/20 20:47 106 H 09/17/20 20:39 106 H 09/17/20 20:26 106 H 99 09/17/20 20:11 36 H 09/17/20 20:00 98.1 F 106 H 36 H 139/78 09/17/20 17:40 97.6 F 94 16 107/54 100 09/17/20 17:18 95 09/17/20 17:10 97.6 F 96 16 107/51 100 09/17/20 17:00 97.5 F L 95 16 121/62 97 09/17/20 16:25 94 09/17/20 16:14 92 09/17/20 15:09 96.4 F L 95 14 122/56 96 Intake and Output 09/17/20 09/18/20 09/18/20 22:59 06:59 14:59 Intake Total 310 Output Total 350 1250 Balance -40 -1250 Intake: Oral 0 Blood Product 310 Rc As-1 Unit 310 [id number] Output: Urine 350 1250 Other: Voiding Method Bedpan Indwelling Catheter Indwelling Catheter Weight 49.442 kg 54.5 kg Results 09/17/20 22:00 09/18/20 10:36 Cardiac Enzymes 09/17/20 Range/Units 13:35 Lactate Dehydrogenase 639 H (313-618) U/L CBC 09/17/20 Range/Units 22:00 WBC 20.7 H (3.8-10.6) k/uL RBC 3.68 L (3.80-5.40) m/uL Hgb 8.7 L D (11.4-16.0) gm/dL Hct 31.7 L (34.0-46.0) % Plt Count 344 (150-450) k/uL Comprehensive Metabolic Panel 09/18/20 Range/Units 10:36 Sodium 141 (137-145) mmol/L Potassium 4.1 (3.5-5.1) mmol/L Chloride 107 (98-107) mmol/L Carbon Dioxide 27 (22-30) mmol/L BUN 36 H (7-17) mg/dL Creatinine 1.05 H (0.52-1.04) mg/dL Glucose 106 H (74-99) mg/dL Calcium 8.9 (8.4-10.2) mg/dL Current Medications Generic Name Dose Route Start Last Admin Trade Name Freq PRN Reason Stop Dose Admin Albuterol/Ipratropium 3 ml 09/17/20 15:35 Ipratropium-Albuterol 3 Ml Neb INHALATION RT-Q2H PRN Shortness Of Breath Or Wheezing Albuterol/Ipratropium 3 ml 09/17/20 16:00 09/18/20 11:34 Ipratropium-Albuterol 3 Ml Neb INHALATION 3 ml RT-QID TROY Administration Apixaban 5 mg 09/18/20 10:30 09/18/20 12:24 Apixaban 5 Mg Tab PO 5 mg BID TROY Administration Budesonide 1 mg 09/17/20 20:00 09/18/20 08:41 Budesonide 1 Mg/2 Ml Nebu INHALATION 1 mg RT-BID TROY Administration Formoterol Fumarate 20 mcg 09/17/20 20:00 09/18/20 08:41 Formoterol Fumarate 20 Mcg/2 Ml Nebu INHALATION 20 mcg RT-BID TROY Administration Levofloxacin 750 mg/ IV 150 mls @ 100 mls/hr 09/20/20 12:00 Solution IVPB Q48H TROY Insulin Aspart 0 unit 09/17/20 17:30 09/18/20 12:25 Insulin Aspart (Novolog) 100 Unit/Ml Vial SQ 1 unit ACHS TROY Administration Protocol Methylprednisolone Sodium Succinate 40 mg 09/17/20 18:00 09/18/20 12:24 Methylprednisolone Sod Succi 40 Mg/Ml 1 Ml Vial IV 40 mg Q6HR TROY Administration Metoprolol Tartrate 25 mg 09/18/20 10:30 09/18/20 12:24 Metoprolol Tartrate 25 Mg Tab PO 25 mg BID TROY Administration Miscellaneous Information 1 each 09/17/20 12:55 Rx Info: Iv Contrast Was Given 1 Each Misc MISCELLANE 09/19/20 12:56 DAILY PRN Per Protocol Intake and Output 10/21/20 10/22/20 10/22/20 22:59 06:59 14:59 Intake Total 310 Output Total 350 1250 Balance -40 -1250 Intake: Oral 0 Blood Product 310 Rc As-1 Unit 310 [id number] Output: Urine 350 1250 Other: Voiding Method Bedpan Indwelling Catheter Indwelling Catheter Weight 49.442 kg 54.5 kg 09/17/20 22:00 09/18/20 10:36
--- NOTE | 2020-09-18 14:41 | P.PN ---
Subjective Progress Note Date: 09/18/20 Principal diagnosis: Shortness of breath 79-year-old female patient of Dr. Hester with known history of advanced COPD on home oxygen, history of squamous cell lung cancer currently not on any treatment, hyperlipidemia, current smoker, trying to quit. Her lung cancer was originally diagnosed in October 2017, and patient completed radiation treatment in 2017, the patient did receive chemotherapy following her radiation therapy. Her most recent PET scan from January 2020 showed a positive partial treatment response to the right upper lobe neoplasm, no new metastatic disease was identified. Her CT of the chest from April 2020 showed a large area of consolidative masslike process in the right upper lobe that was similar to the prior exam with no definite significant interval change. Patient presented to the emergency department on 09/17/2020 for evaluation of difficulty breathing. Her shortness of breath got worse this morning. Patient denied any fever or chills, she has had a cough, but no chest pain or palpitations. Chest had no nausea vomiting diarrhea, no abdominal pain, no headaches, no numbness or weakness. Patient's CODE STATUS is do not resuscitate. Her chest x-ray shows background emphysematous changes and right-sided volume loss, new small to mode rate-sized right pleural effusion, new mild cardiac with, worsening right upper lung masslike consolidation corresponding to the area of hypermetabolic uptake on the PET scan reflecting enlarging neoplasm and worsening postobstructive atelectasis. CTA chest was obtained showing no evidence of for acute pulmonary embolism, and moderate to advanced emphysematous change, new small to moderate- sized right pleural effusion and tiny left pleural effusion. New alveolar and interstitial edema, and interval progression in the right upper lobe mass or neoplasm and postobstructive atelectasis. EKG showed A. fib with a rate of 105 BPM, with nonspecific ST abnormality. Labs have been reviewed, showing leukocytosis with what blood cell, 16.3, hemoglobin of 6.4, INR 1, sodium was 140, potassium 4.7, CO2 is 20, B1 is 23, creatinine 0.87, plasma lactic acid was 5.5, patient was given IV fluids, and lactic acid came down to 2.8, troponin was 0.032, proBNP was 19,009 100, LDH was 639. Patient was placed on BiPAP support with pressures of 10 and 5, and FiO2 of 40%, she will receiving blood, currently her pulse ox is 96% on 40% FiO2, she is afebrile, she was started on breathing treatments, and IV steroids. She was given a milligram of Ativan for anxiety, currently her breathing has improved, she is tolerating BiPAP support well. Appears to be in no acute distress. On 09/18/2020 patient seen in follow-up on selective care unit. Breathing easier today, on 3 L of oxygen pulse ox 92%, breathing easier today, she continues on empiric antibiotics, nebulized bronchodilators, she was given a dose of IV Lasix last night, she is on IV steroids. Patient is in negative fluid balance. Denied any chest pain. According was completed showing severely impaired EF of 25-30%, severe mitral regurgitation, severe tricuspid regurgitation, and mild pulmonary hypertension with right-sided pressures of 45.8 mmHg. Yesterday we saw the patient consultation, patient has a known history of squamous cell lung cancer, severe COPD, multiple comorbidities, we recommended palliative care consultation, and apparently patient met with hospice, and the plan is for the patient to be transferred home under the hospice care to the daughter's house. Objective - Vital Signs Vital signs: Vital Signs Temp 98.9 F 09/18/20 12:00 Pulse 123 H 09/18/20 12:00 Resp 18 09/18/20 12:00 BP 128/58 09/18/20 12:00 Pulse Ox 92 L 09/18/20 12:00 Intake & Output 09/17/20 09/18/20 09/18/20 18:59 06:59 18:59 Intake Total 0 310 Output Total 1600 Balance 0 -1290 Weight 49.442 kg 54.5 kg Intake: Oral 0 Blood Product 0 310 Rc As-1 Unit 0 310 [id number] Output: Urine 1600 Other: Voiding Method Bedpan Indwelling Catheter Indwelling Catheter - Exam GENERAL EXAM: Alert, pleasant, 79-year-old white female, 3 L of oxygen. Pulse ox 92%, comfortable in no apparent distress. HEAD: Normocephalic/atraumatic. EYES: Normal reaction of pupils, equal size. Conjunctiva pink, sclera white. NOSE: Clear with pink turbinates. THROAT: No erythema or exudates. NECK: No masses, no JVD, no thyroid enlargement, no adenopathy. CHEST: No chest wall deformity. Symmetrical expansion. LUNGS: Equal air entry with scattered rhonchi, coarse breath sounds CVS: Regular rate and rhythm, normal S1 and S2, no gallops, no murmurs, no rubs ABDOMEN: Soft, nontender. No hepatosplenomegaly, normal bowel sounds, no guarding or rigidity. EXTREMITIES: No clubbing, 1+ pedal ankle and pretibial edema no cyanosis, 2+ pulses and upper and lower extremities. MUSCULOSKELETAL: Muscle strength and tone normal. SPINE: No scoliosis or deformity SKIN: No rashes CENTRAL NERVOUS SYSTEM: Alert and oriented -3. No focal deficits, tone is normal in all 4 extremities. PSYCHIATRIC: Alert and oriented -3. Appropriate affect. Intact judgment and insight. - Labs CBC & Chem 7: 09/17/20 22:00 09/18/20 10:36 Labs: Abnormal Lab Results - Last 24 Hours (Table) 09/17/20 09/17/20 09/17/20 Range/Units 13:35 13:35 14:55 WBC (3.8-10.6) k/uL RBC (3.80-5.40) m/uL Hgb (11.4-16.0) gm/dL Hct (34.0-46.0) % MCH (25.0-35.0) pg MCHC (31.0-37.0) g/dL RDW (11.5-15.5) % Neutrophils # (1.3-7.7) k/uL Lymphocytes # (1.0-4.8) k/uL BUN (7-17) mg/dL Creatinine (0.52-1.04) mg/dL Glucose (74-99) mg/dL POC Glucose (mg/dL) (75-99) mg/dL Plasma Lactic Acid Markus 2.8 H* (0.7-2.0) mmol/L Iron 10 L (50-170) ug/dL % Saturation 3.10 L (12.00-45.00) Crossmatch See Detail 09/17/20 09/17/20 09/17/20 Range/Units 17:15 17:34 20:07 WBC (3.8-10.6) k/uL RBC (3.80-5.40) m/uL Hgb (11.4-16.0) gm/dL Hct (34.0-46.0) % MCH (25.0-35.0) pg MCHC (31.0-37.0) g/dL RDW (11.5-15.5) % Neutrophils # (1.3-7.7) k/uL Lymphocytes # (1.0-4.8) k/uL BUN (7-17) mg/dL Creatinine (0.52-1.04) mg/dL Glucose (74-99) mg/dL POC Glucose (mg/dL) 160 H 128 H (75-99) mg/dL Plasma Lactic Acid Markus 2.1 H* (0.7-2.0) mmol/L Iron (50-170) ug/dL % Saturation (12.00-45.00) Crossmatch 09/17/20 09/18/20 09/18/20 Range/Units 22:00 06:07 10:36 WBC 20.7 H (3.8-10.6) k/uL RBC 3.68 L (3.80-5.40) m/uL Hgb 8.7 L D (11.4-16.0) gm/dL Hct 31.7 L (34.0-46.0) % MCH 23.7 L (25.0-35.0) pg MCHC 27.6 L (31.0-37.0) g/dL RDW 18.6 H (11.5-15.5) % Neutrophils # 19.9 H (1.3-7.7) k/uL Lymphocytes # 0.4 L (1.0-4.8) k/uL BUN 36 H (7-17) mg/dL Creatinine 1.05 H (0.52-1.04) mg/dL Glucose 106 H (74-99) mg/dL POC Glucose (mg/dL) 135 H (75-99) mg/dL Plasma Lactic Acid Markus (0.7-2.0) mmol/L Iron (50-170) ug/dL % Saturation (12.00-45.00) Crossmatch Microbiology - Last 24 Hours (Table) 09/17/20 11:06 Blood Culture - Preliminary Blood No Growth after 24 hours Assessment and Plan Plan: Assessment: #1. Acute on chronic hypoxic respiratory failure, multifactorial, likely related to acute exacerbation of systolic CHF, possibility right-sided pneumonia is not excluded. No evidence of PE on CTA chest #2. History of squamous cell lung cancer diagnosed in 2017, status post chemoradiation, currently not on any treatment, CTA chest shows interval progression in the right upper lobe mass and postobstructive atelectasis #3. Advanced stage III COPD on home oxygen at 3 L/m #4. Atrial fibrillation with slightly tachycardic rate #5. Chronic and ongoing tobacco dependence #6. Hyperlipidemia #7. Anorexia/cachexia syndrome of malignancy #8. Osteoarthritis #9. Acute on chronic anemia Plan: Patient is breathing easier today, may use BiPAP as needed, has been diuresed, continue with steroids, breathing treatments. Prognosis is extremely guarded, and poor, yesterday we recommended palliative care consultation and the patient and her family met with the hospice in the plan is for transfer the patient home to her daughter's house under the hospice care. I performed a history & physical examination of the patient and discussed their management with my nurse practitioner, Lorie Waterman. I reviewed the nurse practitioner's note and agree with the documented findings and plan of care. Lung sounds are positive for scattered rhonchi. The findings and the impression was discussed with the patient. I attest to the documentation by the nurse practitioner. Time with Patient: Less than 30
[2020-09-18] MEDS ORDERED: ALPRAZolam 0.5 MG TAB PO STA (15:51)
[2020-09-18 16:57] LABS: Glucose,Whole Blood 130 mg/dL (75-99)
[2020-09-18 20:37] LABS: Glucose,Whole Blood 177 mg/dL (75-99)
[2020-09-18] MEDS: IPRATROPIUM-ALBUTEROL 3 ML NEB INHALATION PRN (23:45)
--- NOTE | 2020-09-19 00:31 | P.PN ---
Progress Note - Text Progress Note Date: 09/18/20 Chief Complaint: Short of breath History of presenting complaint: This is a 79-year-old patient of Dr. Dwayne Hester. 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 She was put on concurrent chemoradiation and completed treatment on January 2018. Repeat PET scan in August 2018 revealed disease progression in the lung. Patient was started on Opdivo. Last PET scan was in January 2020 revealing stable disease. She now presents to the ER with good of a short of breath. Decreased oral intake weak diet and rundown. Diminished functional status. Much worsening. When I try to get a history from the patient very difficult to do the same. Most of her history is obtained from other consultants in the ER. Patient's currently on a BiPAP rather short of breath. Did receive a unit of blood for hemoglobin of 6.4. Patient also wheezing. Today-sitting up, tired, short of breath. Eating small amounts. Review of systems: Was done for constitutional, cardiovascular, GI, pulmonary. relevant finding as above Active Medications Albuterol/Ipratropium (Ipratropium-Albuterol 3 Ml Neb) 3 ml INHALATION RT-Q2H PRN PRN Reason: Shortness Of Breath Or Wheezing Last Admin: 09/18/20 23:45 Dose: 3 ml Documented by: Albuterol/Ipratropium (Ipratropium-Albuterol 3 Ml Neb) 3 ml INHALATION RT-QID [facility] Last Admin: 09/18/20 19:57 Dose: 3 ml Documented by: Apixaban (Apixaban 5 Mg Tab) 5 mg PO BID [facility] Last Admin: 09/18/20 21:05 Dose: 5 mg Documented by: Budesonide (Budesonide 1 Mg/2 Ml Nebu) 1 mg INHALATION RT-BID [facility] Last Admin: 09/18/20 19:56 Dose: 1 mg Documented by: Formoterol Fumarate (Formoterol Fumarate 20 Mcg/2 Ml Nebu) 20 mcg INHALATION RT-BID [facility] Last Admin: 09/18/20 19:56 Dose: 20 mcg Documented by: Levofloxacin 750 mg/ IV (Solution) 150 mls @ 100 mls/hr IVPB Q48H [facility] Insulin Aspart (Insulin Aspart (Novolog) 100 Unit/Ml Vial) 0 unit SQ ACHS TROY; Protocol Last Admin: 09/18/20 17:15 Dose: Not Given Documented by: Methylprednisolone Sodium Succinate (Methylprednisolone Sod Succi 40 Mg/Ml 1 Ml Vial) 40 mg IV Q6HR [facility] Last Admin: 09/18/20 17:47 Dose: 40 mg Documented by: Metoprolol Tartrate (Metoprolol Tartrate 25 Mg Tab) 25 mg PO BID [facility] Last Admin: 09/18/20 21:05 Dose: 25 mg Documented by: Miscellaneous Information (Rx Info: Iv Contrast Was Given 1 Each Misc) 1 each MISCELLANE DAILY PRN PRN Reason: Per Protocol Stop: 09/19/20 12:56 Physical examination: VITAL SIGNS: 98.1, 104, 20, 101/53, 99% on 3 L GENERAL: Sitting of the age of the bed, short of breath, tired. EYES: Pupils equal. Conjunctiva normal. HEENT: External appearance of nose and ears normal, oral cavity dry. NECK: JVD unable to assess masses not palpable. HEART: First and second heart sounds are normal; no edema. LUNGS: Respiratory rate increased, [place] III muscles are working, not able to speak in full symptoms, diminished breath sounds on expiration and wheezing. ABDOMEN: Soft, nontender, liver spleen not palpable, no masses palpable. PSYCH: Able to answer questions INVESTIGATIONS, reviewed in the clinical context: White count 16.3 hemoglobin 6.4 platelets 402 potassium 4.7 creatinine 0.87 bun 23 Lactic acid 5.5 troponin I 0.032 proBNP 19,900 albumin 3.4 Chest x-ray film personally reviewed by [id number] mass with possible collapse possible fluid EKG tracing personally reviewed by me-possible atrial fibrillation, nonspecific ST segment changes Computed tomography scan of the chest-no PE. Moderate advanced emphysematous changes. Moderate right-sided pleural effusion some interstitial edema. Progression of right upper lobe mass and postobstructive atelectasis Assessment: -Patient with a diagnosis of squamous cell cancer of the lung in October 2017. Did receive chemoradiation. Subsequent worsening. Put on Opdivo. All seems to have radiological worsening of the same. Previously metastatic to the bones -Acute COPD exacerbation in a current smoker -Chronic nicotine dependence patient cigarette smoker -Worsening symptomatically anemia that of malignancy and decreased nutritional status -Right upper lobe collapse postobstructive -Primary osteoarthritis -Cannot rule out postobstructive pneumonia -Persistent atrial fibrillation -Acute hypoxic respiratory failure requiring BiPAP -Advancing medical debility from underlying malignancy -Mild protein calorie malnutrition decreased oral intake Plan: Was seen by pulmonary and oncology. Decision has been made to proceed with hospice at home. Patient is Dr. Shah taken at home. Discussed with it application development manager. Discharge paperwork was completed. Later in the evening was called by nurse Blanton the patient home oxygen has not been arranged. Hence patient cannot go home today. Discharge postponed
[2020-09-19] MEDS: methylPREDNISolone SOD SUCCI 40 MG/ML 1 ML VIAL IV SCH ×2 (00:35→06:36)
[2020-09-19] MEDS: IPRATROPIUM-ALBUTEROL 3 ML NEB INHALATION PRN (03:51)
[2020-09-19 04:13] VITALS: TEMP 98
[2020-09-19 06:21] LABS: Glucose,Whole Blood 176 mg/dL (75-99)
[2020-09-19] MEDS: INSULIN ASPART (NovoLOG) 100 UNIT/ML VIAL SQ SCH ×2 (06:37→13:38)
[2020-09-19] MEDS: FORMOTEROL FUMARATE 20 MCG/2 ML NEBU INHALATION SCH (08:08)
[2020-09-19] MEDS: IPRATROPIUM-ALBUTEROL 3 ML NEB INHALATION SCH ×2 (08:08→11:10)
[2020-09-19] MEDS: BUDESONIDE 1 MG/2 ML NEBU INHALATION SCH (08:08)
[2020-09-19 08:46] VITALS: BP 133/70; RESP 22
[2020-09-19] MEDS: METOPROLOL TARTRATE 25 MG TAB PO SCH (08:55)
[2020-09-19] MEDS: APIXABAN 5 MG TAB PO SCH (08:55)
[2020-09-19 11:13] VITALS: PULSE 112
[2020-09-19 11:57] LABS: Glucose,Whole Blood 155 mg/dL (75-99)
--- NOTE | 2020-09-19 13:17 | P.PN ---
Subjective Progress Note Date: 09/19/20 Principal diagnosis: Shortness of breath secondary to acute exacerbation of COPD, complicated by squamous cell lung cancer 79-year-old female patient of Dr. Hester with known history of advanced COPD on home oxygen, history of squamous cell lung cancer currently not on any elly tment, hyperlipidemia, current smoker, trying to quit. Her lung cancer was originally diagnosed in October 2017, and patient completed radiation treatment in 2017, the patient did receive chemotherapy following her radiation therapy. Her most recent PET scan from January 2020 showed a positive partial treatment response to the right upper lobe neoplasm, no new metastatic disease was identified. Her CT of the chest from April 2020 showed a large area of consolidative masslike process in the right upper lobe that was similar to the prior exam with no definite significant interval change. Patient presented to the emergency department on 09/17/2020 for evaluation of difficulty breathing. Her shortness of breath got worse this morning. Patient denied any fever or chills, she has had a cough, but no chest pain or palpitations. Chest had no nausea vomiting diarrhea, no abdominal pain, no headaches, no numbness or weakness. Patient's CODE STATUS is do not resuscitate. Her chest x-ray shows background emphysematous changes and right-sided volume loss, new small to moderate-sized right pleural effusion, new mild cardiac with, worsening right upper lung masslike consolidation corresponding to the area of hypermetabolic uptake on the PET scan reflecting enlarging neoplasm and worsening postobstructive atelectasis. CTA chest was obtained showing no evidence of for acute pulmonary embolism, and moderate to advanced emphysematous change, new small to moderate-sized right pleural effusion and tiny left pleural effusion. New alveolar and interstitial edema, and interval progression in the right upper lobe mass or neoplasm and postobstructive atelectasis. EKG showed A. fib with a rate of 105 BPM, with nonspecific ST abnormality. Labs have been reviewed, showing leukocytosis with what blood cell, 16.3, hemoglobin of 6.4, INR 1, sodium was 140, potassium 4.7, CO2 is 20, B1 is 23, creatinine 0.87, plasma lactic acid was 5.5, patient was given IV fluids, and lactic acid came down to 2.8, troponin was 0.032, proBNP was 19,009 100, LDH was 639. Patient was placed on BiPAP support with pressures of 10 and 5, and FiO2 of 40%, she will receiving blood, currently her pulse ox is 96% on 40% FiO2, she is afebrile, she was started on breathing treatments, and IV steroids. She was given a milligram of Ativan for anxiety, currently her breathing has improved, she is tolerating BiPAP support well. Appears to be in no acute distress. On 09/18/2020 patient seen in follow-up on selective care unit. Breathing easier today, on 3 L of oxygen pulse ox 92%, breathing easier today, she continues on empiric antibiotics, nebulized bronchodilators, she was given a dose of IV Lasix last night, she is on IV steroids. Patient is in negative fluid balance. Denied any chest pain. According was completed showing severely impaired EF of 25-30%, severe mitral regurgitation, severe tricuspid regurgitation, and mild pulmonary hypertension with right-sided pressures of 45.8 mmHg. Yesterday we saw the patient consultation, patient has a known history of squamous cell lung cancer, severe COPD, multiple comorbidities, we recommended palliative care consultation, and apparently patient met with hospice, and the plan is for the patient to be transferred home under the hospice care to the daughter's house. The patient is seen today 09/19/2020 in follow-up on the selective care unit. She is currently sitting up at the bedside. Awake and alert in no acute distress. Breathing a bit easier today compared to yesterday. Maintaining O2 saturations in the mid 90s on 3 L/m per nasal cannula. She did utilize the BiPAP last night. She is 1 unit of packed red blood cells this admission. Last hemoglobin 8.7. Blood cultures reveal no growth. Blood glucose 155. She remains on DuoNeb inhalations, Pulmicort and Perforomist inhalations, IV Solu- Medrol. Antibiotics in the form of Levaquin. Objective - Vital Signs Vital signs: Vital Signs Temp 98.0 F 09/19/20 04:11 Pulse 112 H 09/19/20 11:20 Resp 22 09/19/20 08:00 BP 133/70 09/19/20 08:00 Pulse Ox 95 09/19/20 08:00 Intake & Output 09/18/20 09/19/20 09/19/20 18:59 06:59 18:59 Intake Total 340 90 Output Total 500 250 0 Balance -160 -250 90 Weight 67 kg Intake: Oral 340 90 Output: Urine 500 250 0 Other: Voiding Method Indwelling Catheter Indwelling Catheter Indwelling Catheter # Voids 0 - Exam GENERAL EXAM: Alert, pleasant, 79-year-old female patient, 3 L of oxygen. Pulse ox 95%, comfortable in no apparent distress. HEAD: Normocephalic/atraumatic. EYES: Normal reaction of pupils, equal size. Conjunctiva pink, sclera white. NOSE: Clear with pink turbinates. THROAT: No erythema or exudates. NECK: No masses, no JVD, no thyroid enlargement, no adenopathy. CHEST: No chest wall deformity. Symmetrical expansion. LUNGS: Equal air entry with scattered rhonchi, coarse breath sounds CVS: Regular rate and rhythm, normal S1 and S2, no gallops, no murmurs, no rubs ABDOMEN: Soft, nontender. No hepatosplenomegaly, normal bowel sounds, no guar ding or rigidity. EXTREMITIES: No clubbing, 1+ pedal ankle and pretibial edema no cyanosis, 2+ pulses and upper and lower extremities. MUSCULOSKELETAL: Muscle strength and tone normal. SPINE: No scoliosis or deformity SKIN: No rashes CENTRAL NERVOUS SYSTEM: No focal deficits, tone is normal in all 4 extremities. PSYCHIATRIC: Alert and oriented -3. Appropriate affect. Intact judgment and insight. - Labs CBC & Chem 7: 09/17/20 22:00 09/18/20 10:36 Labs: Abnormal Lab Results - Last 24 Hours (Table) 09/18/20 09/18/20 09/19/20 Range/Units 16:55 20:36 06:19 POC Glucose (mg/dL) 130 H 177 H 176 H (75-99) mg/dL 09/19/20 Range/Units 11:37 POC Glucose (mg/dL) 155 H (75-99) mg/dL Microbiology - Last 24 Hours (Table) 09/17/20 11:06 Blood Culture - Preliminary Blood No Growth after 24 hours Assessment and Plan Assessment: #1. Acute on chronic hypoxic respiratory failure, multifactorial, likely related to acute exacerbation of systolic CHF, possibility right-sided pneumonia is not excluded. No evidence of PE on CTA chest #2. History of squamous cell lung cancer diagnosed in 2017, status post chemoradiation, currently not on any treatment, CTA chest shows interval progression in the right upper lobe mass and postobstructive atelectasis #3. Advanced stage III COPD on home oxygen at 3 L/m #4. Atrial fibrillation with slightly tachycardic rate #5. Chronic and ongoing tobacco dependence #6. Hyperlipidemia #7. Anorexia/cachexia syndrome of malignancy #8. Osteoarthritis #9. Acute on chronic anemia Plan: The patient was seen and evaluated by Dr. Barragan Improved today compared to yesterday Overall prognosis remains quite poor and guarded Plan is for possible home with hospice today We will see as needed I, the cosigning physician, performed a history & physical examination of the patient. Lungs sounds with bilateral scattered rhonchi and coarse. Maintaining good O2 saturations in the 90s on 3 L/m per nasal cannula. I discussed the assessment and plan of care with my nurse practitioner, Teena Royal. I attest to the above note as dictated by her.
[2020-09-20] MEDS ORDERED: LEVOFLOXACIN 750MG-D5W PMX 750 MG in DEXTROSE/WATER 1 150ML.BAG IVPB SCH (12:00)
--- NOTE | 2020-09-21 21:55 | P.DS ---
Providers Date of admission: 09/17/20 12:23 Expected date of discharge: 09/19/20 Attending physician: Apolinar Corona Consults: 09/17/20 12:19 Consult Physician Urgent Consulting Provider: Pravin Barragan Consult Reason/Comments: Dyspnea, pleural effusion, lung cancer Do you want consulting provider notified?: Yes Consult Physician Urgent Consulting Provider: Remberto Stevens Consult Reason/Comments: lung cancer Do you want consulting provider notified?: Yes 09/18/20 09:53 Consult Physician Routine Consulting Provider: Carl Colbert Consult Reason/Comments: runs of vtach Do you want consulting provider notified?: Yes Primary care physician: [facility] Course: Chief Complaint: Short of breath History of presenting complaint: This is a 79-year-old patient of Dr. Dwayne Hester. 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 She was put on concurrent chemoradiation and completed treatment on January 2018. Repeat PET scan in August 2018 revealed disease progression in the lung. Patient was started on Opdivo. Last PET scan was in January 2020 revealing stable disease. She now presents to the ER with good of a short of breath. Decreased oral intake weak diet and rundown. Diminished functional status. Much worsening. When I try to get a history from the patient very difficult to do the same. Most of her history is obtained from other consultants in the ER. Patient's currently on a BiPAP rather short of breath. Did receive a unit of blood for hemoglobin of 6.4. Patient also wheezing. Decision made to proceed with hospice. Arteries seen by pulmonary and oncology. Today-sitting up, tired, short of breath. Eating small amounts. Will be going home with hospice. Discussed with gearcase assembler. Home oxygen to be done. Discussed with patient. Questions answered. Consultation: Dr. Reilly from pulmonary Dr. ALINE Colbert from cardiology Dr. Vegas from oncology Physical examination: VITAL SIGNS: 98, 103, 22, 133/70, 95% 3 L GENERAL: Sitting of the age of the bed, short of breath, tired. EYES: Pupils equal. Conjunctiva normal. HEENT: External appearance of nose and ears normal, oral cavity dry. NECK: JVD unable to assess masses not palpable. HEART: First and second heart sounds are normal; no edema. LUNGS: Respiratory rate increased, [place] III muscles are working, not able to speak in full symptoms, diminished breath sounds on expiration and wheezing. ABDOMEN: Soft, nontender, liver spleen not palpable, no masses palpable. PSYCH: Able to answer questions INVESTIGATIONS, reviewed in the clinical context: White count 16.3 hemoglobin 6.4 platelets 402 potassium 4.7 creatinine 0.87 bun 23 Lactic acid 5.5 troponin I 0.032 proBNP 19,900 albumin 3.4 Chest x-ray film personally reviewed by [id number] mass with possible collapse possible fluid EKG tracing personally reviewed by me-possible atrial fibrillation, nonspecific ST segment changes Computed tomography scan of the chest-no PE. Moderate advanced emphysematous changes. Moderate right-sided pleural effusion some interstitial edema. Progression of right upper lobe mass and postobstructive atelectasis Assessment: -Patient with a diagnosis of squamous cell cancer of the lung in October 2017. Did receive chemoradiation. Subsequent worsening. Put on Opdivo. All seems to have radiological worsening of the same. Previously metastatic to the bones -Acute COPD exacerbation in a current smoker, POA -Chronic nicotine dependence patient cigarette smoker -Worsening symptomatically anemia that of malignancy and decreased nutritional status -Right upper lobe collapse postobstructive, POA -Primary osteoarthritis -Possible postobstructive pneumonia -Persistent atrial fibrillation -Acute hypoxic respiratory failure requiring BiPAP -Advancing medical debility from underlying malignancy -Mild protein calorie malnutrition decreased oral intake Disposition: Home with hospice Plan - Discharge Summary Discharge Rx Participant: No New Discharge Prescriptions: New Levofloxacin [Levaquin] 750 mg PO DAILY 1 Days #5 tab predniSONE 10 mg PO DAILY #30 tab Continue Fluticasone/Vilanterol [Breo Ellipta 200-25 Mcg INH] 1 puff INHALATION RT- DAILY Albuterol Inhaler [Ventolin Hfa Inhaler] 2 puff INHALATION RT-Q4H PRN PRN Reason: Shortness Of Breath Albuterol Nebulized [Ventolin Nebulized] 2.5 mg INHALATION RT-Q4H PRN PRN Reason: Shortness Of Breath Apixaban [Eliquis] 5 mg PO BID Furosemide [Lasix] 20 mg PO DAILY PRN PRN Reason: Edema LORazepam [Ativan] 0.5 mg PO BID PRN PRN Reason: Anxiety Megestrol [Megace] 800 mg PO DAILY Metoprolol Tartrate [Lopressor] 25 mg PO BID predniSONE 10 mg PO DAILY Potassium Chloride ER [K-Dur 20] 20 meq PO DAILY PRN PRN Reason: with lasix Pantoprazole Sodium [Protonix] 40 mg PO DAILY Ondansetron [Zofran] 4 mg PO Q8H PRN PRN Reason: Nausea Discontinued Atorvastatin Calcium [Lipitor] 40 mg PO DAILY Midodrine HCl 10 mg PO TID PRN PRN Reason: low blood pressure Discharge Medication List Fluticasone/Vilanterol [Breo Ellipta 200-25 Mcg INH] 1 puff INHALATION RT-DAILY 12/28/18 [History] Albuterol Inhaler [Ventolin Hfa Inhaler] 2 puff INHALATION RT-Q4H PRN 09/17/20 [History] Albuterol Nebulized [Ventolin Nebulized] 2.5 mg INHALATION RT-Q4H PRN 09/17/20 [History] Apixaban [Eliquis] 5 mg PO BID 09/17/20 [History] Furosemide [Lasix] 20 mg PO DAILY PRN 09/17/20 [History] LORazepam [Ativan] 0.5 mg PO BID PRN 09/17/20 [History] Megestrol [Megace] 800 mg PO DAILY 09/17/20 [History] Metoprolol Tartrate [Lopressor] 25 mg PO BID 09/17/20 [History] Ondansetron [Zofran] 4 mg PO Q8H PRN 09/17/20 [History] Pantoprazole Sodium [Protonix] 40 mg PO DAILY 09/17/20 [History] Potassium Chloride ER [K-Dur 20] 20 meq PO DAILY PRN 09/17/20 [History] predniSONE 10 mg PO DAILY 09/17/20 [History] Levofloxacin [Levaquin] 750 mg PO DAILY 1 Days #5 tab 09/18/20 [Rx] predniSONE 10 mg PO DAILY #30 tab 09/18/20 [Rx] Follow up Appointment(s)/Referral(s): Dwayne Hester DO [Primary Care Provider] - 1-2 days [facility] [NON-STAFF] - 1 Week [facility], [NON-STAFF] - 1 Week (Hospice) Discharge Disposition: HOME WITH HOSPICE
== END 2020-09-19 14:09 | disposition hospice, home (50) | DRG 190 ==
LOC: EC 10:54 → 3SCARD 12:23
PROVIDERS: ADMIT Hospitalist; ATTEND Hospitalist
PROC: 5A09457 Assistance with Respiratory Ventilation, 24-96 Consecutive Hours, Continuous Positive Airway Pressure (ICD-10-PCS; principal; 2020-09-17)
PROC: 30233N1 Transfusion of Nonautologous Red Blood Cells into Peripheral Vein, Percutaneous Approach (ICD-10-PCS; 2020-09-17)
DX: J44.1 Chronic obstructive pulmonary disease with (acute) exacerbation (principal); I50.23 Acute on chronic systolic (congestive) heart failure; J96.21 Acute and chronic respiratory failure with hypoxia; J18.8 Other pneumonia, unspecified organism; R64 Cachexia; C34.11 Malignant neoplasm of upper lobe, right bronchus or lung; C79.51 Secondary malignant neoplasm of bone; J98.11 Atelectasis; I48.19 Other persistent atrial fibrillation; I47.2 Ventricular tachycardia; E44.1 Mild protein-calorie malnutrition; I47.1 Supraventricular tachycardia; R63.0 Anorexia; Z68.26 Body mass index [BMI] 26.0-26.9, adult; F17.210 Nicotine dependence, cigarettes, uncomplicated; M19.91 Primary osteoarthritis, unspecified site; Z66 Do not resuscitate; Z51.5 Encounter for palliative care; I49.3 Ventricular premature depolarization; J44.0 Chronic obstructive pulmonary disease with (acute) lower respiratory infection; D63.0 Anemia in neoplastic disease; D72.829 Elevated white blood cell count, unspecified; E78.5 Hyperlipidemia, unspecified; F41.9 Anxiety disorder, unspecified; I08.1 Rheumatic disorders of both mitral and tricuspid valves; I27.20 Pulmonary hypertension, unspecified; Z79.01 Long term (current) use of anticoagulants; Z79.899 Other long term (current) drug therapy; Z92.21 Personal history of antineoplastic chemotherapy; Z92.3 Personal history of irradiation; Z99.81 Dependence on supplemental oxygen; Z90.89 Acquired absence of other organs; Z98.51 Tubal ligation status; R53.81 Other malaise; Z88.1 Allergy status to other antibiotic agents; Z88.5 Allergy status to narcotic agent; Z88.0 Allergy status to penicillin; Z79.52 Long term (current) use of systemic steroids; Z90.12 Acquired absence of left breast and nipple; Z80.3 Family history of malignant neoplasm of breast; Z80.9 Family history of malignant neoplasm, unspecified; Z87.311 Personal history of (healed) other pathological fracture; Z88.8 Allergy status to other drugs, medicaments and biological substances
CPT/HCPCS: 36415; 71045; 71275; 80048; 80053; 82607; 82728; 82746; 82803; 83540; 83550; 83605; 83615; 83735; 83880; 83921; 84484; 85025; 85045; 85610; 85730; 86850; 86900; 86901; 86920; 87040; 93005; 93306; 94640; 94660; 94760; 96365; 96375; 99285